=== PATIENT | female | born 1945 | race Caucasian/White ===

== ENCOUNTER → 2016-12-21 | Outpatient (CLI) | payer MEDICARE ==
[~2016-12-21] MED LIST: REGADENOSON 0.4 MG/5 ML SYRINGE IV ONE
--- NOTE | 2016-12-21 11:24 | EST ---
DATE OF SERVICE: 12/21/2016 AGE: 71Y SEX: F HT: 5'2" WT: 200 lbs. Lexiscan Cardiolite Stress Test *Heart Rate Blood Pressure *Rest: 66 Rest: 143/63 * *Max. Achieved: 88 Maximum BP: 143/63 85% PMHR: 127 100% PMHR: 149 *METS: - INDICATIONS: Chest pain. MEDICATIONS: Ventolin, Enalapril, Buspirone, venlafaxine, Advair, levothyroxine, ropinirole, spironolactone, Trazodone. Baseline EKG shows sinus rhythm, normal axis, normal intervals. Patient was given intravenous Lexiscan as per protocol. Did not have chest pain or diagnostic ST-segment depression. CONCLUSION: 1. Negative stress test by EKG criteria. 2. Cardiolite portion of the stress test will be reported separately.
--- NOTE | 2016-12-21 11:31 | NM ---
EXAMINATION TYPE: NM stress lexiscan cardiolite DATE OF EXAM: 12/21/2016 11:25 AM COMPARISON: NONE HISTORY: Chest pain TECHNIQUE: After the intravenous administration of 10.5 mCi Tc 99m Sestamibi - Cardiolite resting SP ECT images acquired 45 minutes post injection. The patient received 0.4mg Lexiscan, 26.349 mCi Tc 99m Sestamibi - Stress images obtained 30 minutes post injection FINDINGS: Review of stress and rest SPECT images demonstrates interval reversible small area of perfusion defec t apical lateral myocardium. Gated analysis shows normal wall motion with an estimated left ventricu lar ejection fraction of 67 %. IMPRESSION: Question a small area of reversibility stress-induced apical lateral myocardium. Correlate clinically . A Yellow message has been communicated to Pilar Dodge DO via the [facility] system on 12/21/2016 11:28 AM, Message ID [id number].
== END | disposition home or self-care (01) ==
LOC: RADNMMAIN 08:48
PROVIDERS: ATTEND Family Medicine
DX: R07.2 Precordial pain (principal); R06.00 Dyspnea, unspecified
CPT/HCPCS: 93017; 78452; A9500; J2785

== ENCOUNTER 2016-12-23 11:48 | Inpatient (IN) | payer MEDICARE ==
[2016-12-23] MEDS ORDERED: ASPIRIN 81 MG CHEW PO STA (12:17)
[2016-12-23] MEDS ORDERED: NITROGLYCERIN OINT 1 INCH/GM PACKET TOPICAL STA (12:17)
--- NOTE | 2016-12-23 12:20 | ED ---
General Adult HPI - General Chief complaint: Chest Pain Stated complaint: Chest pain Time Seen by Provider: 12/23/16 12:10 Source: patient, RN notes reviewed Mode of arrival: wheelchair Limitations: no limitations - History of Present Illness Initial comments: Patient is a pleasant 71-year-old female presenting to the emergency Department with complaints of chest discomfort. Onset of symptoms was a month and a half ago. Symptoms are exertional. Discomfort was present this morning. Discomfort is mild at this time rated 1/10. Discomfort feels like pressure. Occasional associated dyspnea and nausea. No diaphoresis. Patient did have a recent stress test that was reported as positive. Patient has had some mild leg swelling which is somewhat chronic. - Related Data Home Medications Medication Instructions Recorded Confirmed Insulin Aspart [NovoLOG] See Protocol SQ-PUMP CONTINUOUS 03/20/14 12/23/16 Pantoprazole Sodium [Protonix] 40 mg PO DAILY 03/20/14 12/23/16 Enalapril [Vasotec] 10 mg PO DAILY 06/23/14 12/23/16 Fluticasone/Salmeterol [Advair 1 puff INHALATION RT-BID 06/23/14 12/23/16 250-50 Diskus] Furosemide [Lasix] 20 mg PO DAILY 06/23/14 12/23/16 rOPINIRole HCL [Requip] 8 mg PO DAILY 06/23/14 12/23/16 Aspirin EC [Ecotrin Low Dose] 81 mg PO DAILY 12/23/16 12/23/16 Carboxymethylcellulose Sodium 1 drop BOTH EYES TID PRN 12/23/16 12/23/16 [Refresh Tears] Levothyroxine Sodium [Synthroid] 75 mcg PO DAILY 12/23/16 12/23/16 Spironolactone 50 mg PO DAILY 12/23/16 12/23/16 Venlafaxine HCl [Effexor XR] 75 mg PO TID 12/23/16 12/23/16 busPIRone HCl [Buspar] 10 mg PO BID PRN 12/23/16 12/23/16 traZODone HCL [Desyrel] 50 mg PO HS 12/23/16 12/23/16 Allergies Allergy/AdvReac Type Severity Reaction Status Date / Time banana [Banana] Allergy Rash/Hives, Verified 12/23/16 11:54 throat symptoms Fish Containing Products Allergy Swelling Verified 12/23/16 11:54 Iodinated Contrast Media - Allergy Anaphylaxis Verified 12/23/16 11:54 Oral and [Iodinated Contrast Media - IV Dye] iodine Allergy Anaphylaxis Verified 12/23/16 11:54 Latex, Natural Rubber Allergy Swelling Verified 12/23/16 11:54 Penicillins Allergy Rash/Hives Verified 12/23/16 11:54 prochlorperazine edisylate Allergy Rapid Verified 12/23/16 12:58 [From Compazine] Heart Rate prochlorperazine maleate Allergy Rapid Verified 12/23/16 11:54 [From Compazine] Heart Rate codeine AdvReac Abdominal Verified 12/23/16 12:58 Pain hydromorphone HCl AdvReac confused Verified 12/23/16 12:58 [From Dilaudid] meperidine HCl [From Demerol] AdvReac Hallucinati Verified 12/23/16 12:58 ons Review of Systems ROS Statement: Those systems with pertinent positive or pertinent negative responses have been documented in the HPI. ROS Other: All systems not noted in ROS Statement are negative. Constitutional: Denies: fever Eyes: Denies: eye pain ENT: Denies: ear pain Respiratory: Denies: cough Cardiovascular: Reports: chest pain Endocrine: Denies: fatigue Gastrointestinal: Denies: abdominal pain Genitourinary: Denies: dysuria Musculoskeletal: Denies: back pain Skin: Denies: rash Neurological: Denies: weakness Past Medical History Past Medical History: Asthma, Chest Pain / Angina, CVA/TIA, Diabetes Mellitus, Fibromyalgia, GERD/Reflux, Hypertension, Memory Impairment, Osteoarthritis (OA) , Pneumonia, Rheumatoid Arthritis (RA), Skin Disorder Additional Past Medical History / Comment(s): recent headaches, varicose veins, occ palipations, contact dermatitis,hiatal hernia, hx ulcer, anemia, loss of short term memory History of Any Multi-Drug Resistant Organisms: None Reported Past Surgical History: Bariatric Surgery, Cholecystectomy, Hysterectomy, Joint Replacement, Orthopedic Surgery Additional Past Surgical History / Comment(s): LAP BAND REMOVED ON 12/09/2013. isaiah knee replacement, isaiah ankle surgery Past Anesthesia/Blood Transfusion Reactions: Motion Sickness Past Psychological History: Anxiety, Depression Smoking Status: Former smoker Past Alcohol Use History: None Reported Past Drug Use History: None Reported - Past Family History Mother Family Medical History: Cancer Father Family Medical History: Cancer Sister(s) Family Medical History: Cancer General Exam Limitations: no limitations General appearance: alert, in no apparent distress Head exam: Present: atraumatic Eye exam: Present: normal appearance, PERRL ENT exam: Present: normal oropharynx Neck exam: Present: normal inspection Respiratory exam: Present: normal lung sounds bilaterally Cardiovascular Exam: Present: regular rate, normal rhythm Expanded Peripheral pulses: 2+: Radial (R), Radial (L), Posterior Tibialis (R), Posterior Tibialis (L) GI/Abdominal exam: Present: soft. Absent: tenderness Extremities exam: Present: normal inspection. Absent: pedal edema, calf tenderness Neurological exam: Present: alert Psychiatric exam: Present: normal affect, normal mood Skin exam: Absent: rash Course Vital Signs 12/23/16 12/23/16 12/23/16 11:50 12:13 12:37 Temperature 99.2 F Pulse Rate 72 66 Pulse Rate [ 80 Apical] Respiratory 16 16 18 Rate Blood Pressure 171/77 171/82 O2 Sat by Pulse 98 98 Oximetry 12/23/16 13:49 Temperature Pulse Rate 66 Pulse Rate [ Apical] Respiratory 18 Rate Blood Pressure 189/88 O2 Sat by Pulse 98 Oximetry EKG Findings - EKG Comments: EKG Findings:: Normal sinus rhythm at 70. PA 142. QRS 72. QT 418. QTC 451. Left axis. Voltage criteria for LVH. No acute ST elevation. Medical Decision Making - Medical Decision Making Patient reevaluated and resting comfortably in bed. Dr. Joyce has been paged for admission for Dr. Monique. Patient updated on results and plan. Admission orders written. Consult placed for cardiology. - Lab Data Result diagrams: 12/23/16 12:09 12/23/16 12:09 Lab Results 12/23/16 12/23/16 12/23/16 Range/Units 12:09 12:09 12:09 WBC 8.7 (3.8-10.6) k/uL RBC 4.59 (3.80-5.40) m/uL Hgb 13.5 (11.4-16.0) gm/dL Hct 41.0 (34.0-46.0) % MCV 89.3 (80.0-100.0) fL MCH 29.5 (25.0-35.0) pg MCHC 33.0 (31.0-37.0) g/dL RDW 14.2 (11.5-15.5) % Plt Count 233 (150-450) k/uL Neutrophils % 66 % Lymphocytes % 25 % Monocytes % 3 % Eosinophils % 3 % Basophils % 1 % Neutrophils # 5.8 (1.3-7.7) k/uL Lymphocytes # 2.2 (1.0-4.8) k/uL Monocytes # 0.2 (0-1.0) k/uL Eosinophils # 0.2 (0-0.7) k/uL Basophils # 0.0 (0-0.2) k/uL PT (9.0-12.0) sec INR (<1.1) APTT (22.0-30.0) sec Sodium 139 (137-145) mmol/L Potassium 4.3 (3.5-5.1) mmol/L Chloride 103 (98-107) mmol/L Carbon Dioxide 23 (22-30) mmol/L Anion Gap 13 mmol/L BUN 19 H (7-17) mg/dL Creatinine 0.68 (0.52-1.04) mg/dL Est GFR (MDRD) Af Amer >60 (>60 ml/min/1.73 sqM) Est GFR (MDRD) Non-Af >60 (>60 ml/min/1.73 sqM) Glucose 188 H (74-99) mg/dL Calcium 9.3 (8.4-10.2) mg/dL Magnesium 1.8 (1.6-2.3) mg/dL Total Bilirubin 0.6 (0.2-1.3) mg/dL AST 17 (14-36) U/L ALT 26 (9-52) U/L Alkaline Phosphatase 113 (38-126) U/L Total Creatine Kinase 65 (30-135) U/L CK-MB (CK-2) 1.7 (0.0-2.4) ng/mL CK-MB (CK-2) Rel Index 2.6 Troponin I <0.012 (0.000-0.034) ng/mL NT-Pro-B Natriuret Pep pg/mL Total Protein 7.3 (6.3-8.2) g/dL Albumin 4.1 (3.5-5.0) g/dL 12/23/16 12/23/16 Range/Units 12:09 12:09 WBC (3.8-10.6) k/uL RBC (3.80-5.40) m/uL Hgb (11.4-16.0) gm/dL Hct (34.0-46.0) % MCV (80.0-100.0) fL MCH (25.0-35.0) pg MCHC (31.0-37.0) g/dL RDW (11.5-15.5) % Plt Count (150-450) k/uL Neutrophils % % Lymphocytes % % Monocytes % % Eosinophils % % Basophils % % Neutrophils # (1.3-7.7) k/uL Lymphocytes # (1.0-4.8) k/uL Monocytes # (0-1.0) k/uL Eosinophils # (0-0.7) k/uL Basophils # (0-0.2) k/uL PT 9.8 (9.0-12.0) sec INR 1.0 (<1.1) APTT 22.5 (22.0-30.0) sec Sodium (137-145) mmol/L Potassium (3.5-5.1) mmol/L Chloride (98-107) mmol/L Carbon Dioxide (22-30) mmol/L Anion Gap mmol/L BUN (7-17) mg/dL Creatinine (0.52-1.04) mg/dL Est GFR (MDRD) Af Amer (>60 ml/min/1.73 sqM) Est GFR (MDRD) Non-Af (>60 ml/min/1.73 sqM) Glucose (74-99) mg/dL Calcium (8.4-10.2) mg/dL Magnesium (1.6-2.3) mg/dL Total Bilirubin (0.2-1.3) mg/dL AST (14-36) U/L ALT (9-52) U/L Alkaline Phosphatase (38-126) U/L Total Creatine Kinase (30-135) U/L CK-MB (CK-2) (0.0-2.4) ng/mL CK-MB (CK-2) Rel Index Troponin I (0.000-0.034) ng/mL NT-Pro-B Natriuret Pep 133 pg/mL Total Protein (6.3-8.2) g/dL Albumin (3.5-5.0) g/dL - Radiology Data Radiology results: image reviewed (Chest x-ray shows no acute process) Critical Care Time Critical Care Time: Yes Total Critical Care Time: 31 Disposition Clinical Impression: Unstable angina pectoris Disposition: ADMITTED IP TO THIS HOSP
--- NOTE | 2016-12-23 12:34 | XR ---
EXAMINATION TYPE: XR chest 2V DATE OF EXAM: 12/23/2016 12:28 PM COMPARISON: Prior chest x-ray December 10, 2013 HISTORY: Chest pain. TECHNIQUE: Frontal and lateral views of the chest are obtained. FINDINGS: There is no focal air space opacity, pleural effusion, or pneumothorax seen. The cardiac silhouette size is within normal limits. The osseous structures are somewhat demineralized. Cholecy stectomy clips are noted. IMPRESSION: No acute cardiopulmonary process on current study.
[2016-12-23 12:35] LABS: Basophils % (A) 1 %; CH 29.1; CHCM 32.8; Eosinophils # (A) 0.2 k/uL (0-0.7); Eosinophils % (A) 3 %; HDW 2.52; HGB 13.5 gm/dL (11.4-16.0); Luc # (Auto) 0.24; Luc % (Auto) 3; Lymphocytes # (A) 2.2 k/uL (1.0-4.8); Lymphocytes % (A) 25 %; MCH 29.5 pg (25.0-35.0); MCV 89.3 fL (80.0-100.0); Mean Platelet Volume 7.7; Monocytes # (A) 0.2 k/uL (0-1.0); Monocytes % (A) 3 %; Neutrophils # (A) 5.8 k/uL (1.3-7.7); Neutrophils % (A) 66 %; RBC 4.59 m/uL (3.80-5.40); RDW 14.2 % (11.5-15.5); WBC 8.7 k/uL (3.8-10.6); WBC (Perox) 9.19
[2016-12-23 12:43] LABS: Partial Thromboplastin Time 22.5 sec (22.0-30.0); Prothrombin Time 9.8 sec (9.0-12.0)
[2016-12-23 12:50] LABS: ALT 26 U/L (9-52); AST 17 U/L (14-36); Alkaline Phosphatase 113 U/L (38-126); Anion Gap 13 mmol/L; Blood Urea Nitrogen 19 mg/dL (7-17); Calcium 9.3 mg/dL (8.4-10.2); Carbon Dioxide 23 mmol/L (22-30); Chloride 103 mmol/L (98-107); Glucose 188 mg/dL (74-99); Magnesium 1.8 mg/dL (1.6-2.3); Non-African American GFR(MDRD) >60 (>60 ml/min/1.73 sqM); Potassium 4.3 mmol/L (3.5-5.1); Sodium 139 mmol/L (137-145); Total Bilirubin 0.6 mg/dL (0.2-1.3); Total Protein 7.3 g/dL (6.3-8.2)
[2016-12-23 13:26] LABS: Creatine Kinase 65 U/L (30-135)
[2016-12-23 13:39] LABS: Creatine Kinase MB 1.7 ng/mL (0.0-2.4); Troponin I <0.012 ng/mL (0.000-0.034)
[2016-12-23] MEDS ORDERED: NITROGLYCERIN SL TABS 0.4 MG TAB SUBLINGUAL PRN (13:48)
[2016-12-23] MEDS ORDERED: HEPARIN SODIUM,PORCINE 5,000 UNIT/ML 1 ML VIAL IV PRN (13:48)
[2016-12-23] MEDS ORDERED: HEPARIN SODIUM,PORCINE 5,000 UNIT/ML 1 ML VIAL IV ONE (13:48)
[2016-12-23] MEDS ORDERED: busPIRone HCl 10 MG TAB PO PRN (13:52)
[2016-12-23] MEDS ORDERED: ARTIFICIAL TEARS-HYPROMELLOSE DROPS 15 ML BTL BOTH EYES PRN (13:52)
[2016-12-23] MEDS: LORazepam 1 MG TAB PO PRN ×2 (13:59→22:00)
[2016-12-23] MEDS: HEPARIN SODIUM,PORCINE/D5W PMX 25,000 UNIT in DEXTROSE/WATER 1 500ML.BAG IV SCH (14:01)
[2016-12-23] MEDS ORDERED: rOPINIRole HCL 4 MG TABLET PO STA (15:40)
[2016-12-23] MEDS ORDERED: LISINOPRIL 20 MG TAB PO STA (15:42)
[2016-12-23] MEDS ORDERED: FUROSEMIDE 20 MG TAB PO STA (15:42)
[2016-12-23] MEDS ORDERED: PANTOPRAZOLE 40 MG TABLET PO STA (15:43)
[2016-12-23] MEDS ORDERED: busPIRone HCl 10 MG TAB PO STA (15:43)
[2016-12-23] MEDS ORDERED: SPIRONOLACTONE 25 MG TAB PO STA (15:43)
[2016-12-23] MEDS ORDERED: LEVOTHYROXINE 75 MCG TAB PO STA (15:44)
[2016-12-23] MEDS: VENLAFAXINE HCL ER 75 MG CAP PO SCH ×2 (16:36→21:53)
[2016-12-23 17:02] LABS: Glucose,Whole Blood 235 mg/dL (75-99)
[2016-12-23] MEDS: INSULIN LISPRO (For Pump) 100 UNIT/ML VIAL SQ-PUMP SCH ×2 (17:22→21:55)
[2016-12-23] MEDS: NITROGLYCERIN OINT 1 INCH/GM PACKET TOPICAL SCH ×2 (17:35→22:00)
[2016-12-23 20:06] LABS: Creatine Kinase 61 U/L (30-135)
[2016-12-23 20:14] LABS: Glucose,Whole Blood 197 mg/dL (75-99)
[2016-12-23 20:20] LABS: Creatine Kinase MB 1.5 ng/mL (0.0-2.4); Troponin I <0.012 ng/mL (0.000-0.034)
[2016-12-23] MEDS: traZODone HCL 50 MG TAB PO SCH (21:53)
[2016-12-24 00:34] LABS: Creatine Kinase 61 U/L (30-135)
[2016-12-24 00:46] LABS: Creatine Kinase MB 1.2 ng/mL (0.0-2.4); Troponin I <0.012 ng/mL (0.000-0.034)
[2016-12-24 05:12] LABS: Cholesterol 197 mg/dL (<200); HDL Cholesterol 55 mg/dL (40-60); Triglycerides 104 mg/dL (<150)
[2016-12-24 05:30] LABS: Mean Platelet Volume 7.7
[2016-12-24] MEDS: NITROGLYCERIN OINT 1 INCH/GM PACKET TOPICAL SCH ×3 (05:58→18:56)
[2016-12-24] MEDS: LEVOTHYROXINE 75 MCG TAB PO SCH (05:58)
[2016-12-24 07:08] LABS: Glucose,Whole Blood 187 mg/dL (75-99)
[2016-12-24] MEDS ORDERED: ATORVASTATIN 80 MG TAB PO STA (08:17)
[2016-12-24] MEDS ORDERED: NITROGLYCERIN SL TABS 0.4 MG TAB SUBLINGUAL PRN (08:17)
[2016-12-24] MEDS ORDERED: ALPRAZolam 0.25 MG TAB PO PRN (08:17)
[2016-12-24] MEDS ORDERED: SODIUM CHLORIDE 0.9% 1,000 ML in EMPTY BAG 1 BAG IV ONE (08:17)
[2016-12-24] MEDS ORDERED: ASPIRIN 325 MG TAB PO STA (08:17)
[2016-12-24] MEDS ORDERED: ALPRAZolam 0.5 MG TAB PO PRN (08:17)
--- NOTE | 2016-12-24 08:18 | P.CRDCN ---
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 Obviously the patient was experiencing intermittent episodes of chest discomfort concerning for angina. Her discomfort is a pressure in the mid of the chest mostly exertional and better with resting. No associated symptoms of shortness of breath or dizziness or lightheadedness or syncope. The patient underwent myocardial perfusion imaging stress test few days ago and that showed lateral ischemia. The primary care physician and received a copy of the stress test and called the patient to go to the emergency room. The patient underwent 3 sets of cardiac enzymes came in to be unremarkable. the EKG showed sinus rhythm with nonspecific changes inferiorly. I recommended proceeding with heart catheterization in the next 24 hours. Past Medical History Past Medical History: Asthma, Chest Pain / Angina, CVA/TIA, Diabetes Mellitus, Fibromyalgia, GERD/Reflux, Hypertension, Memory Impairment, Osteoarthritis (OA) , Pneumonia, Rheumatoid Arthritis (RA), Skin Disorder Additional Past Medical History / Comment(s): recent headaches, varicose veins, occ palpitations, contact dermatitis,hiatal hernia, hx ulcer, anemia, loss of short term memory History of Any Multi-Drug Resistant Organisms: None Reported Past Surgical History: Bariatric Surgery, Cholecystectomy, Hysterectomy, Joint Replacement, Orthopedic Surgery Additional Past Surgical History / Comment(s): Gastric sleeve removed, and LAP BAND REMOVED ON 12/09/2013. isaiah knee replacement, isaiah ankle surgery Past Anesthesia/Blood Transfusion Reactions: Motion Sickness Past Psychological History: Anxiety, Depression Smoking Status: Former smoker Past Alcohol Use History: None Reported Past Drug Use History: None Reported - Past Family History Mother Family Medical History: Cancer Father Family Medical History: Cancer Sister(s) Family Medical History: Cancer Medications and Allergies Home Medications Medication Instructions Recorded Confirmed Type Insulin Aspart [NovoLOG] See Protocol SQ-PUMP CONTINUOUS 03/20/14 12/23/16 History Pantoprazole Sodium [Protonix] 40 mg PO DAILY 03/20/14 12/23/16 History Enalapril [Vasotec] 10 mg PO DAILY 06/23/14 12/23/16 History Fluticasone/Salmeterol [Advair 1 puff INHALATION RT-BID 06/23/14 12/23/16 History 250-50 Diskus] Furosemide [Lasix] 20 mg PO DAILY 06/23/14 12/23/16 History rOPINIRole HCL [Requip] 8 mg PO DAILY 06/23/14 12/23/16 History Aspirin EC [Ecotrin Low Dose] 81 mg PO DAILY 12/23/16 12/23/16 History Carboxymethylcellulose Sodium 1 drop BOTH EYES TID PRN 12/23/16 12/23/16 History [Refresh Tears] Levothyroxine Sodium [Synthroid] 75 mcg PO DAILY 12/23/16 12/23/16 History Spironolactone 50 mg PO DAILY 12/23/16 12/23/16 History Venlafaxine HCl [Effexor XR] 75 mg PO TID 12/23/16 12/23/16 History busPIRone HCl [Buspar] 10 mg PO BID PRN 12/23/16 12/23/16 History traZODone HCL [Desyrel] 50 mg PO HS 12/23/16 12/23/16 History Allergies Allergy/AdvReac Type Severity Reaction Status Date / Time banana [Banana] Allergy Rash/Hives, Verified 12/23/16 11:54 throat symptoms Fish Containing Products Allergy Swelling Verified 12/23/16 11:54 Iodinated Contrast Media - Allergy Anaphylaxis Verified 12/23/16 11:54 Oral and [Iodinated Contrast Media - IV Dye] iodine Allergy Anaphylaxis Verified 12/23/16 11:54 Latex, Natural Rubber Allergy Swelling Verified 12/23/16 11:54 Penicillins Allergy Rash/Hives Verified 12/23/16 11:54 prochlorperazine edisylate Allergy Rapid Verified 12/23/16 12:58 [From Compazine] Heart Rate prochlorperazine maleate Allergy Rapid Verified 12/23/16 11:54 [From Compazine] Heart Rate codeine AdvReac Abdominal Verified 12/23/16 12:58 Pain hydromorphone HCl AdvReac confused Verified 12/23/16 12:58 [From Dilaudid] meperidine HCl [From Demerol] AdvReac Hallucinati Verified 12/23/16 12:58 ons Physical Exam Vitals: Vital Signs Temp Pulse Resp BP Pulse Ox 12/24/16 08:00 97.5 F L 69 16 121/66 94 L 12/24/16 04:00 97.9 F 72 18 116/59 93 L 12/23/16 23:54 18 12/23/16 22:53 67 18 117/69 95 12/23/16 20:00 18 12/23/16 19:39 98.1 F 64 18 131/65 97 12/23/16 16:51 97 12/23/16 15:02 98.3 F 60 16 173/74 95 12/23/16 14:05 97.8 F Intake and Output 12/23/16 12/24/16 12/24/16 22:59 06:59 14:59 Intake Total 158.096 601.875 Balance 158.096 601.875 Intake: IV 200 0.9@20 100 Heparin Sodium,Porcine/ 100 D5w Pmx 25,000 unit In Dextrose/Water 1 500ml. bag @ 10.9 UNITS/KG/HR 19 .97 mls/hr IV .Q24H SHARA Rx#:[id number] Intake, IV Titration 158.096 201.875 Amount Heparin Sodium,Porcine/ 158.096 201.875 D5w Pmx 25,000 unit In Dextrose/Water 1 500ml. bag @ 10.9 UNITS/KG/HR 19 .97 mls/hr IV .Q24H SHARA Rx#:[id number] Oral 200 Other: Voiding Method Toilet Toilet # Voids 1 2 Weight 91.8 kg - Constitutional General appearance: no acute distress - Respiratory Respiratory: bilateral: CTA - Cardiovascular Rhythm: regular Heart sounds: normal: S1, S2 Results 12/24/16 03:49 12/23/16 12:09 Cardiac Enzymes 12/23/16 12/23/16 Range/Units 19:04 23:51 CK-MB (CK-2) 1.5 1.2 (0.0-2.4) ng/mL Troponin I <0.012 <0.012 (0.000-0.034) ng/mL Coagulation 12/23/16 12/24/16 Range/Units 20:39 03:49 APTT 37.6 H 76.5 H (22.0-30.0) sec Lipids 12/24/16 Range/Units 03:49 Triglycerides 104 (<150) mg/dL Cholesterol 197 (<200) mg/dL HDL Cholesterol 55 (40-60) mg/dL CBC 12/24/16 Range/Units 03:49 Plt Count 221 (150-450) k/uL Current Medications Generic Name Dose Route Start Last Admin Trade Name Freq PRN Reason Stop Dose Admin Artificial Tears 1 drops 12/23/16 13:52 Artificial Tear Drops BOTH EYES TID PRN Dry Eye(s) Aspirin 325 mg 12/24/16 09:00 Aspirin PO DAILY [facility]1983 Buspirone HCl 10 mg 12/23/16 13:52 Buspar PO BID PRN Anxiety Furosemide 20 mg 12/24/16 09:00 Lasix PO DAILY SHARA Heparin Sodium (Porcine) 0 unit 12/23/16 13:48 12/23/16 21:53 Heparin IV 4,000 unit Q6HR PRN Administration Low PTT Protocol Heparin Sodium/Dextrose 25,000 500 mls @ 19.97 mls/hr 12/23/16 14:00 05:51 unit/ IV Solution IV 11.92 units/kg/hr .Q24H SHARA 21.84 mls/hr Protocol Titration 10.9 UNITS/KG/HR Insulin Human Lispro 0 unit 12/23/16 17:30 12/23/16 21:55 Humalog (For Pump) SQ-PUMP 2 unit ACHS SHARA Administration Protocol Levothyroxine Sodium 75 mcg 12/24/16 06:30 12/24/16 05:58 Synthroid PO 75 mcg 0630 SHARA Administration Lisinopril 20 mg 12/24/16 09:00 Zestril PO DAILY SHARA Lorazepam 1 mg 12/23/16 13:50 12/23/16 22:00 Ativan PO 1 mg TID PRN Administration Anxiety Nitroglycerin 1 inch 12/23/16 18:00 12/24/16 05:58 Nitro-Bid Oint TOPICAL 1 inch Q6HR SHARA Administration Nitroglycerin 0.4 mg 12/23/16 13:48 Nitrostat SUBLINGUAL Q5M PRN Chest Pain Pantoprazole Sodium 40 mg 12/24/16 09:00 Protonix PO DAILY [facility]1983 Ropinirole HCl 8 mg 12/24/16 09:00 Requip PO DAILY [facility]1983 Spironolactone 50 mg 12/24/16 09:00 Aldactone PO DAILY SHARA Trazodone HCl 50 mg 12/23/16 21:00 12/23/16 21:53 Desyrel PO 50 mg HS SHARA Administration Venlafaxine HCl 75 mg 12/23/16 16:00 12/23/16 21:53 Effexor Xr PO 75 mg TID SHARA Administration Intake and Output 12/23/16 12/24/16 12/24/16 22:59 06:59 14:59 Intake Total 158.096 601.875 Balance 158.096 601.875 Intake: IV 200 0.9@20 100 Heparin Sodium,Porcine/ 100 D5w Pmx 25,000 unit In Dextrose/Water 1 500ml. bag @ 10.9 UNITS/KG/HR 19 .97 mls/hr IV .Q24H SHARA Rx#:[id number] Intake, IV Titration 158.096 201.875 Amount Heparin Sodium,Porcine/ 158.096 201.875 D5w Pmx 25,000 unit In Dextrose/Water 1 500ml. bag @ 10.9 UNITS/KG/HR 19 .97 mls/hr IV .Q24H SHARA Rx#:[id number] Oral 200 Other: Voiding Method Toilet Toilet # Voids 1 2 Weight 91.8 kg 12/24/16 03:49 Assessment and Plan Plan: assessment #1 intermittent episodes of chest discomfort #2 abnormal stress test as described above #3 multiple risk factors for CAD Plan #1 proceeding with heart catheterization #2 follow-up with the patient
[2016-12-24] MEDS: LISINOPRIL 20 MG TAB PO SCH (09:22)
[2016-12-24] MEDS: VENLAFAXINE HCL ER 75 MG CAP PO SCH ×3 (09:22→21:26)
[2016-12-24] MEDS: ASPIRIN 325 MG TAB PO SCH (09:22)
[2016-12-24] MEDS: INSULIN LISPRO (For Pump) 100 UNIT/ML VIAL SQ-PUMP SCH ×3 (09:25→18:56)
[2016-12-24] MEDS: rOPINIRole HCL 4 MG TABLET PO SCH (10:56)
[2016-12-24] MEDS: SPIRONOLACTONE 25 MG TAB PO SCH (10:56)
[2016-12-24] MEDS: PANTOPRAZOLE 40 MG TABLET PO SCH (10:57)
[2016-12-24] MEDS: LORazepam 1 MG TAB PO PRN (10:59)
[2016-12-24 12:01] LABS: Glucose,Whole Blood 219 mg/dL (75-99)
--- NOTE | 2016-12-24 13:19 | P.HPIM ---
History of Present Illness H&P Date: 12/24/16 Chief Complaint: Chest pain This is a 71-year-old female with past medical history noted below who presented to the emergency room with intermittent chest pain. Patient is been having chest pain for the past couple of weeks. She was evaluated by her primary care physician. She underwent a cardiac stress test/MPI as an outpatient a few days ago that was positive. Patient received a call from her primary care physician and as she was still having intermittent chest pressure she was advised to go to the emergency room for further evaluation. In the emergency room twelve-lead EKG showed no acute ischemic changes. Nonspecific ST segment changes on the inferior leads noted. Serial troponin negative 2 sets. Patient was placed in observation and was evaluated by cardiology. Plan for left heart catheterization in the morning. Review of Systems Review of system: 14 points review of systems were obtained and were negative except to what were mentioned in the HPI. Past Medical History Past Medical History: Asthma, Chest Pain / Angina, CVA/TIA, Diabetes Mellitus, Fibromyalgia, GERD/Reflux, Hypertension, Memory Impairment, Osteoarthritis (OA) , Pneumonia, Rheumatoid Arthritis (RA), Skin Disorder Additional Past Medical History / Comment(s): recent headaches, varicose veins, occ palpitations, contact dermatitis,hiatal hernia, hx ulcer, anemia, loss of short term memory History of Any Multi-Drug Resistant Organisms: None Reported Past Surgical History: Bariatric Surgery, Cholecystectomy, Hysterectomy, Joint Replacement, Orthopedic Surgery Additional Past Surgical History / Comment(s): Gastric sleeve removed, and LAP BAND REMOVED ON 12/09/2013. isaiah knee replacement, isaiah ankle surgery Past Anesthesia/Blood Transfusion Reactions: Motion Sickness Past Psychological History: Anxiety, Depression Smoking Status: Former smoker Past Alcohol Use History: None Reported Past Drug Use History: None Reported - Past Family History Mother Family Medical History: Cancer Father Family Medical History: Cancer Sister(s) Family Medical History: Cancer Medications and Allergies Home Medications Medication Instructions Recorded Confirmed Type Insulin Aspart [NovoLOG] See Protocol SQ-PUMP CONTINUOUS 03/20/14 12/23/16 History Pantoprazole Sodium [Protonix] 40 mg PO DAILY 03/20/14 12/23/16 History Enalapril [Vasotec] 10 mg PO DAILY 06/23/14 12/23/16 History Fluticasone/Salmeterol [Advair 1 puff INHALATION RT-BID 06/23/14 12/23/16 History 250-50 Diskus] Furosemide [Lasix] 20 mg PO DAILY 06/23/14 12/23/16 History rOPINIRole HCL [Requip] 8 mg PO DAILY 06/23/14 12/23/16 History Aspirin EC [Ecotrin Low Dose] 81 mg PO DAILY 12/23/16 12/23/16 History Carboxymethylcellulose Sodium 1 drop BOTH EYES TID PRN 12/23/16 12/23/16 History [Refresh Tears] Levothyroxine Sodium [Synthroid] 75 mcg PO DAILY 12/23/16 12/23/16 History Spironolactone 50 mg PO DAILY 12/23/16 12/23/16 History Venlafaxine HCl [Effexor XR] 75 mg PO TID 12/23/16 12/23/16 History busPIRone HCl [Buspar] 10 mg PO BID PRN 12/23/16 12/23/16 History traZODone HCL [Desyrel] 50 mg PO HS 12/23/16 12/23/16 History Allergies Allergy/AdvReac Type Severity Reaction Status Date / Time banana [Banana] Allergy Rash/Hives, Verified 12/23/16 11:54 throat symptoms Fish Containing Products Allergy Swelling Verified 12/23/16 11:54 Iodinated Contrast Media - Allergy Anaphylaxis Verified 12/23/16 11:54 Oral and [Iodinated Contrast Media - IV Dye] iodine Allergy Anaphylaxis Verified 12/23/16 11:54 Latex, Natural Rubber Allergy Swelling Verified 12/23/16 11:54 Penicillins Allergy Rash/Hives Verified 12/23/16 11:54 prochlorperazine edisylate Allergy Rapid Verified 12/23/16 12:58 [From Compazine] Heart Rate prochlorperazine maleate Allergy Rapid Verified 12/23/16 11:54 [From Compazine] Heart Rate codeine AdvReac Abdominal Verified 12/23/16 12:58 Pain hydromorphone HCl AdvReac confused Verified 12/23/16 12:58 [From Dilaudid] meperidine HCl [From Demerol] AdvReac Hallucinati Verified 12/23/16 12:58 ons Physical Exam Vitals: Vital Signs Temp Pulse Pulse Resp BP Pulse Ox 12/24/16 11:44 98.3 F 72 16 105/58 95 12/24/16 08:00 97.5 F L 80 69 16 121/66 94 L 12/24/16 04:00 97.9 F 72 18 116/59 93 L 12/23/16 23:54 18 12/23/16 22:53 67 18 117/69 95 12/23/16 20:00 18 12/23/16 19:39 98.1 F 64 18 131/65 97 12/23/16 16:51 97 12/23/16 15:02 98.3 F 60 16 173/74 95 12/23/16 14:05 97.8 F Intake and Output 12/23/16 12/24/16 12/24/16 22:59 06:59 14:59 Intake Total 158.096 601.875 Balance 158.096 601.875 Intake: IV 200 0.9@20 100 Heparin Sodium,Porcine/ 100 D5w Pmx 25,000 unit In Dextrose/Water 1 500ml. bag @ 10.9 UNITS/KG/HR 19 .97 mls/hr IV .Q24H SHARA Rx#:[id number] Intake, IV Titration 158.096 201.875 Amount Heparin Sodium,Porcine/ 158.096 201.875 D5w Pmx 25,000 unit In Dextrose/Water 1 500ml. bag @ 10.9 UNITS/KG/HR 19 .97 mls/hr IV .Q24H SHARA Rx#:[id number] Oral 200 Other: Voiding Method Toilet Toilet Toilet # Voids 1 2 2 Weight 91.8 kg General: The patient is awake and alert, in no distress, and does not appear acutely ill. Eye: extra-ocular movements are intact; there is normal conjunctiva bilaterally. . Neck: The neck is supple, there is no tenderness or JVD. Cardiovascular: Normal S1-S2, no S3-S4, no murmurs. Respiratory: Lungs clear to auscultation bilaterally with no wheezes rhonchi or rales. Gastrointestinal: Abdomen is soft, nontender, nondistended, with no organomegaly. . Musculoskeletal: Normal ROM, no tenderness, There is no pedal edema. Neurological: There are no obvious motor or sensory deficits. Speech is normal. Skin: Skin is warm and dry and no rashes or lesions are noted. Results CBC & Chem 7: 12/24/16 03:49 12/23/16 12:09 Labs: Abnormal Lab Results - Last 24 Hours (Table) 12/23/16 12/23/16 12/23/16 Range/Units 16:56 20:12 20:39 APTT 37.6 H (22.0-30.0) sec POC Glucose (mg/dL) 235 H 197 H (75-99) mg/dL LDL Cholesterol, Calc (0-99) mg/dL 12/24/16 12/24/16 12/24/16 Range/Units 03:49 03:49 07:05 APTT 76.5 H (22.0-30.0) sec POC Glucose (mg/dL) 187 H (75-99) mg/dL LDL Cholesterol, Calc 121 H (0-99) mg/dL 12/24/16 12/24/16 Range/Units 11:57 11:59 APTT 50.2 H (22.0-30.0) sec POC Glucose (mg/dL) 219 H (75-99) mg/dL LDL Cholesterol, Calc (0-99) mg/dL Thrombosis Risk Factor Assmnt - Choose All That Apply Any of the Below Risk Factors Present?: Yes Each Factor Represents 1 point: Obesity (BMI >25) Other Risk Factors: Yes Each Risk Factor Represents 2 Points: Age 61-74 years Thrombosis Risk Factor Assessment Total Risk Factor Score: 3 Thrombosis Risk Factor Assessment Level: Moderate Risk Assessment and Plan Plan: 1. Chest pain: Twelve-lead EKG showed nonspecific ST segment changes in the inferior leads. Serial troponin negative 2 sets. Patient had a positive stress test/ few days ago as an outpatient. She is scheduled for left heart catheterization tomorrow. 2. Essential hypertension: Blood pressure well-controlled 3. Mixed hyperlipidemia total cholesterol 197 and 121. Currently on Lipitor 80 mg daily as started by cardiology 4. Type 2 diabetes mellitus on insulin pump at home. I would check A1c. Continue sliding scale insulin for now. Lantus 10 units daily While in the hospital
[2016-12-24] MEDS: FUROSEMIDE 20 MG TAB PO SCH (15:11)
[2016-12-24] MEDS: HEPARIN SODIUM,PORCINE/D5W PMX 25,000 UNIT in DEXTROSE/WATER 1 500ML.BAG IV SCH (15:18)
[2016-12-24 17:14] LABS: Glucose,Whole Blood 184 mg/dL (75-99)
[2016-12-24 20:57] LABS: Glucose,Whole Blood 256 mg/dL (75-99)
[2016-12-24] MEDS: traZODone HCL 50 MG TAB PO SCH (21:26)
[2016-12-24] MEDS: INSULIN GLARGINE 100 UNIT/ML 10 ML VIAL SQ SCH (22:00)
[2016-12-25] MEDS: NITROGLYCERIN OINT 1 INCH/GM PACKET TOPICAL SCH ×3 (01:53→13:49)
[2016-12-25] MEDS: INSULIN LISPRO (For Pump) 100 UNIT/ML VIAL SQ-PUMP SCH ×2 (07:03→07:31)
[2016-12-25 07:15] LABS: Glucose,Whole Blood 122 mg/dL (75-99)
[2016-12-25] MEDS: ASPIRIN 325 MG TAB PO SCH (07:31)
[2016-12-25] MEDS: LEVOTHYROXINE 75 MCG TAB PO SCH (07:31)
[2016-12-25] MEDS: rOPINIRole HCL 4 MG TABLET PO SCH (07:33)
[2016-12-25] MEDS: PANTOPRAZOLE 40 MG TABLET PO SCH (07:33)
[2016-12-25] MEDS: LISINOPRIL 20 MG TAB PO SCH (07:33)
[2016-12-25] MEDS: SPIRONOLACTONE 25 MG TAB PO SCH (07:34)
[2016-12-25] MEDS: VENLAFAXINE HCL ER 75 MG CAP PO SCH (07:35)
[2016-12-25] MEDS: LORazepam 1 MG TAB PO PRN (07:39)
[2016-12-25 08:02] LABS: Basophils % (A) 1 %; CH 28.8; CHCM 32.2; Eosinophils # (A) 0.3 k/uL (0-0.7); Eosinophils % (A) 4 %; HCT 38.7 % (34.0-46.0); HDW 2.46; HGB 12.3 gm/dL (11.4-16.0); Luc # (Auto) 0.24; Luc % (Auto) 3; Lymphocytes # (A) 2.5 k/uL (1.0-4.8); Lymphocytes % (A) 29 %; MCH 28.6 pg (25.0-35.0); MCHC 31.8 g/dL (31.0-37.0); Mean Platelet Volume 7.5; Monocytes # (A) 0.2 k/uL (0-1.0); Monocytes % (A) 3 %; Neutrophils # (A) 5.3 k/uL (1.3-7.7); Neutrophils % (A) 61 %; RDW 14.2 % (11.5-15.5); WBC 8.7 k/uL (3.8-10.6); WBC (Perox) 9.53
[2016-12-25 08:12] LABS: Anion Gap 12 mmol/L; Blood Urea Nitrogen 23 mg/dL (7-17); Calcium 8.8 mg/dL (8.4-10.2); Carbon Dioxide 25 mmol/L (22-30); Chloride 104 mmol/L (98-107); Glucose 115 mg/dL (74-99); Non-African American GFR(MDRD) >60 (>60 ml/min/1.73 sqM); Potassium 4.3 mmol/L (3.5-5.1); Sodium 141 mmol/L (137-145)
[2016-12-25] MEDS ORDERED: diphenhydrAMINE 50 MG/ML 1 ML VIAL IVP ONE (08:44)
[2016-12-25] MEDS ORDERED: methylPREDNISolone SOD SUCCI 125 MG/2 ML VIAL IV ONE (08:44)
[2016-12-25] MEDS ORDERED: FAMOTIDINE 20 MG/2 ML VIAL IV ONE (08:44)
[2016-12-25 09:01] LABS: Hemoglobin A1C 7.5 % (4.2-6.1)
--- NOTE | 2016-12-25 09:32 | PN ---
The patient was admitted to hospital with unstable angina and had been scheduled for a cardiac cath. SHE IS ALLERGIC TO IV DYE. I am going to prep her this morning. Patient's last allergic reaction was back in 1978 and since that time she has been exposed to IV dye a few times and has tolerated it well.
[2016-12-25] MEDS ORDERED: IV FLUID CONTINUATION 1,000 ML IV ONE (09:40)
[2016-12-25] MEDS ORDERED: LIDOCAINE 2% INJ 20 MG/ML (20 ML MDV) ONE (09:58)
[2016-12-25] MEDS ORDERED: MIDAZOLAM 2 MG/2 ML VIAL ONE (10:32)
[2016-12-25] MEDS ORDERED: MIDAZOLAM 2 MG/2 ML VIAL IV ONE (10:36)
[2016-12-25] MEDS ORDERED: LIDOCAINE 2% INJ 20 MG/ML SQ ONE ×2 (10:38)
[2016-12-25] MEDS ORDERED: RX INFO: IV CONTRAST WAS GIVEN 1 EACH MISC MISCELLANE PRN (10:52)
[2016-12-25] MEDS ORDERED: IOHEXOL 350 MG/ML 100 ML BOTTLE INJ ONE (10:53)
[2016-12-25] MEDS ORDERED: SODIUM CHLORIDE 0.9% 1,000 ML IV SCH (11:00)
--- NOTE | 2016-12-25 11:24 | CC ---
DATE OF SERVICE: INDICATION: Unstable angina. PROCEDURE NOTE: After obtaining informed consent, left heart catheterization and coronary angiogram are performed via the right femoral artery using standard Socrates catheters. Patient tolerated the procedure well without any obvious immediate complications. The patient underwent a femoral angiogram and Angio-Seal was deployed for hemostasis. FINDINGS: HEMODYNAMICS: Left ventricular end-diastolic pressure is 14 to 16 mm. There is no significant gradient across the aortic valve. LEFT VENTRICULOGRAM: Left ventriculogram was not performed. ANGIOGRAPHIC DATA: LEFT MAIN CORONARY ARTERY: Left main coronary artery is a normal sized vessel and is free of stenosis. Divides into left anterior descending coronary artery and circumflex coronary artery. LEFT ANTERIOR DESCENDING CORONARY ARTERY: LAD and its branches, circumflex coronary artery and its branches are free of significant stenosis. RIGHT CORONARY ARTERY: Right coronary artery is a large dominant vessel and is free of significant stenosis. CONCLUSIONS: 1. Normal coronary arteries. 2. Normal left ventricular end-diastolic pressure. PLAN: Patient's chest discomfort is probably noncardiac in origin and her management is going to be in the form of risk factor modifications. Total sedation time ( ).
[2016-12-25] MEDS: FUROSEMIDE 20 MG TAB PO SCH (11:29)
[2016-12-25] MEDS: INSULIN GLARGINE 100 UNIT/ML 10 ML VIAL SQ SCH (11:29)
[2016-12-25 11:50] LABS: Glucose,Whole Blood 128 mg/dL (75-99)
[2016-12-25] MEDS ORDERED: INSULIN PUMP TARGET GLUCOSE 1 EACH MISC MISCELLANE PRN (13:22)
[2016-12-25] MEDS ORDERED: INSULIN LISPRO (humaLOG) 300 UNIT/3 ML VIAL SQ PRN (13:22)
[2016-12-25] MEDS ORDERED: INSPUCOR MISCELLANE PRN (13:22)
[2016-12-25] MEDS ORDERED: INSULIN PUMP BASAL RATES 1 EACH MISC MISCELLANE PRN (13:22)
--- NOTE | 2016-12-25 14:29 | P.DS ---
Providers Date of admission: 12/24/16 15:00 Expected date of discharge: 12/25/16 Attending physician: Maynor Joyce Consults: Dr. Crook Primary care physician: Rachel [facility] Course: discharge diagnosis 1. Chest pain:AZ ruled out. Twelve-lead EKG showed nonspecific ST segment changes in the inferior leads. Serial troponin negative 3 sets. Patient had a positive stress test few days ago as an outpatient. patient is status post heart catheterization showing normal coronary arteries. Patient is chest pain- free. And his been cleared by cardiology for discharge 2. Essential hypertension: Blood pressure well-controlled 3. Mixed hyperlipidemia total cholesterol [address] patient on Lipitor 20 mg daily. 4. Type 2 diabetes mellitus on insulin pump at home. hemoglobin A1c 7.5 Hospital course This is a 71-year-old female with past medical history noted below who presented to the emergency room with intermittent chest pain. Patient is been having chest pain for the past couple of weeks. She was evaluated by her primary care physician. She underwent a cardiac stress test/MPI as an outpatient a few days ago that was positive. Patient received a call from her primary care physician and as she was still having intermittent chest pressure she was advised to go to the emergency room for further evaluation. In the emergency room twelve-lead EKG showed no acute ischemic changes. Nonspecific ST segment changes on the inferior leads noted. Serial troponin negative 3 sets. Patient was seen evaluated by cardiology. She underwent heart catheterization which did show normal coronary arteries. She is chest pain- free. She's been cleared by cardiology for discharge. Case was discussed with Dr. Crook. She'll follow-up with cardiology outpatient setting in 1 week. Also have her follow-up with Dr. Dodge in 1 week Patient Condition at Discharge: Stable Plan - Discharge Summary Discharge Medication List Insulin Aspart [NovoLOG] See Protocol SQ-PUMP CONTINUOUS 03/20/14 [History] Pantoprazole Sodium [Protonix] 40 mg PO DAILY 03/20/14 [History] Enalapril [Vasotec] 10 mg PO DAILY 06/23/14 [History] Fluticasone/Salmeterol [Advair 250-50 Diskus] 1 puff INHALATION RT-BID 06/23/14 [History] Furosemide [Lasix] 20 mg PO DAILY 06/23/14 [History] rOPINIRole HCL [Requip] 8 mg PO DAILY 06/23/14 [History] Aspirin EC [Ecotrin Low Dose] 81 mg PO DAILY 12/23/16 [History] Carboxymethylcellulose Sodium [Refresh Tears] 1 drop BOTH EYES TID PRN 12/23/16 [History] Levothyroxine Sodium [Synthroid] 75 mcg PO DAILY 12/23/16 [History] Spironolactone 50 mg PO DAILY 12/23/16 [History] Venlafaxine HCl [Effexor XR] 75 mg PO TID 12/23/16 [History] busPIRone HCl [Buspar] 10 mg PO BID PRN 12/23/16 [History] traZODone HCL [Desyrel] 50 mg PO HS 12/23/16 [History] Follow up Appointment(s)/Referral(s): Jaxson Crook MD [STAFF PHYSICIAN] - 1 Week Rachel Monique DO [Primary Care Provider] - 1 Week Activity/Diet/Wound Care/Special Instructions: diet: cardiac, diabetic Activity: as tolerated Discharge Disposition: HOME SELF-CARE
[2016-12-25 14:33] VITALS: BP 143/70
[2016-12-25 16:13] VITALS: PULSE 76; RESP 18; TEMP 98.8
[2016-12-25] MEDS ORDERED: INSULIN PUMP MEAL BOLUS 1 UNIT MISC MISCELLANE SCH (17:30)
== END 2016-12-25 16:22 | disposition home or self-care (01) | DRG 287 ==
LOC: EC 11:48 → 3OBS 13:49 → OBSVTOIN 12-24 15:00 → 6SEL 12-25 09:35
PROVIDERS: ADMIT Internal Medicine; ATTEND Internal Medicine
PROC: B2111ZZ Fluoroscopy of Multiple Coronary Arteries using Low Osmolar Contrast (ICD-10-PCS; 2016-12-25)
PROC: 4A023N7 Measurement of Cardiac Sampling and Pressure, Left Heart, Percutaneous Approach (ICD-10-PCS; principal; 2016-12-25 09:40)
DX: R07.89 Other chest pain (principal); E11.9 Type 2 diabetes mellitus without complications; M06.9 Rheumatoid arthritis, unspecified; I10 Essential (primary) hypertension; F32.9 Major depressive disorder, single episode, unspecified; E78.2 Mixed hyperlipidemia; F41.9 Anxiety disorder, unspecified; J45.909 Unspecified asthma, uncomplicated; K21.9 Gastro-esophageal reflux disease without esophagitis; M79.7 Fibromyalgia; Z79.4 Long term (current) use of insulin; Z79.899 Other long term (current) drug therapy; Z86.73 Personal history of transient ischemic attack (TIA), and cerebral infarction without residual deficits; Z87.891 Personal history of nicotine dependence; Z91.041 Radiographic dye allergy status; Z96.41 Presence of insulin pump (external) (internal); Z96.653 Presence of artificial knee joint, bilateral; Z79.82 Long term (current) use of aspirin; R94.39 Abnormal result of other cardiovascular function study; R41.3 Other amnesia; Z98.84 Bariatric surgery status; M19.90 Unspecified osteoarthritis, unspecified site
CPT/HCPCS: 36415; 71020; 80048; 80053; 80061; 82550; 82553; 83036; 83735; 83880; 84484; 85025; 85049; 85610; 85730; 93005; 93458; 94760; 96365; 96366; 96376; 99291

== ENCOUNTER 2017-06-20 18:06 | Emergency (ER) | payer MEDICARE ==
[2017-06-20 18:17] VITALS: BP 169/84; PULSE 79; RESP 18; TEMP 98.6
--- NOTE | 2017-06-20 18:44 | ED ---
General Adult HPI - General Chief complaint: Extremity Injury, Upper Stated complaint: Fall Time Seen by Provider: 06/20/17 18:27 Source: patient, RN notes reviewed Mode of arrival: ambulatory Limitations: no limitations - History of Present Illness Initial comments: 72 yo female presents to the ER with cc of right shoulder pain. Patient states she was trying to walk on her dog and she tripped and landed onto her right shoulder. Patient states it hurts if she tries to take her shoulder up. Patient denies any nausea or vomiting with this. Patient denies any head injury. Patient denies any headache. She was concerned due to her symptoms so she thought that she should be evaluated. Patient denies any recent fever, chills, shortness of breath, chest pain, back pain, abdominal pain, nausea vomiting, numbness or tingling, dysuria or hematuria, constipation or diarrhea, headaches or visual changes, or any other current symptoms. - Related Data Home Medications Medication Instructions Recorded Confirmed Insulin Aspart [NovoLOG] See Protocol SQ-PUMP CONTINUOUS 03/20/14 12/23/16 Pantoprazole Sodium [Protonix] 40 mg PO DAILY 03/20/14 12/23/16 Enalapril [Vasotec] 10 mg PO DAILY 06/23/14 12/23/16 Fluticasone/Salmeterol [Advair 1 puff INHALATION RT-BID 06/23/14 12/23/16 250-50 Diskus] Furosemide [Lasix] 20 mg PO DAILY 06/23/14 12/23/16 rOPINIRole HCL [Requip] 8 mg PO DAILY 06/23/14 12/23/16 Aspirin EC [Ecotrin Low Dose] 81 mg PO DAILY 12/23/16 12/23/16 Carboxymethylcellulose Sodium 1 drop BOTH EYES TID PRN 12/23/16 12/23/16 [Refresh Tears] Levothyroxine Sodium [Synthroid] 75 mcg PO DAILY 12/23/16 12/23/16 Spironolactone 50 mg PO DAILY 12/23/16 12/23/16 Venlafaxine HCl [Effexor XR] 75 mg PO TID 12/23/16 12/23/16 busPIRone HCl [Buspar] 10 mg PO BID PRN 12/23/16 12/23/16 traZODone HCL [Desyrel] 50 mg PO HS 12/23/16 12/23/16 Previous Rx's Medication Instructions Recorded Atorvastatin Calcium [Lipitor] 20 mg PO HS #30 tab 12/25/16 Allergies Allergy/AdvReac Type Severity Reaction Status Date / Time banana [Banana] Allergy Rash/Hives, Verified 06/20/17 18:17 throat symptoms Fish Containing Products Allergy Swelling Verified 06/20/17 18:17 Iodinated Contrast- Oral and Allergy Anaphylaxis Verified 06/20/17 18:17 IV Dye [Iodinated Contrast Media - IV Dye] iodine Allergy Anaphylaxis Verified 06/20/17 18:17 Latex, Natural Rubber Allergy Swelling Verified 06/20/17 18:17 Penicillins Allergy Rash/Hives Verified 06/20/17 18:17 prochlorperazine edisylate Allergy Rapid Verified 06/20/17 18:17 [From Compazine] Heart Rate prochlorperazine maleate Allergy Rapid Verified 06/20/17 18:17 [From Compazine] Heart Rate codeine AdvReac Abdominal Verified 06/20/17 18:17 Pain hydromorphone HCl AdvReac confused Verified 06/20/17 18:17 [From Dilaudid] meperidine HCl [From Demerol] AdvReac Hallucinati Verified 06/20/17 18:17 ons Review of Systems ROS Statement: Those systems with pertinent positive or pertinent negative responses have been documented in the HPI. ROS Other: All systems not noted in ROS Statement are negative. Past Medical History Past Medical History: Asthma, Chest Pain / Angina, CVA/TIA, Diabetes Mellitus, Fibromyalgia, GERD/Reflux, Hypertension, Memory Impairment, Osteoarthritis (OA) , Pneumonia, Rheumatoid Arthritis (RA), Skin Disorder Additional Past Medical History / Comment(s): recent headaches, varicose veins, occ palpitations, contact dermatitis,hiatal hernia, hx ulcer, anemia, loss of short term memory History of Any Multi-Drug Resistant Organisms: None Reported Past Surgical History: Bariatric Surgery, Cholecystectomy, Hysterectomy, Joint Replacement, Orthopedic Surgery Additional Past Surgical History / Comment(s): Gastric sleeve removed, and LAP BAND REMOVED ON 12/09/2013. isaiah knee replacement, isaiah ankle surgery Past Anesthesia/Blood Transfusion Reactions: Motion Sickness Past Psychological History: Anxiety, Depression Smoking Status: Former smoker Past Alcohol Use History: None Reported Past Drug Use History: None Reported - Past Family History Mother Family Medical History: Cancer Father Family Medical History: Cancer Sister(s) Family Medical History: Cancer General Exam - General Exam Comments Initial Comments: General: The patient is awake and alert, in no distress, and does not appear acutely ill. Neck: The neck is supple, there is no tenderness. Cardiovascular: There is a regular rate and rhythm. No murmur, rub or gallop is appreciated. Respiratory: Lungs are clear to auscultation, respirations are non-labored, breath sounds are equal. No wheezes, stridor, rales, or rhonchi. Musculoskeletal: Sensation intact. 2+ pulses throughout the infection. Range of motion of right wrist and right elbow. Tenderness the patient throughout the right humerus. Tenderness with movement of the right shoulder. Tenderness in the right side of the neck. Neurological: CN II-XII intact, There are no obvious motor or sensory deficits. Coordination appears grossly intact. Speech is normal. Skin: Skin is warm and dry and no rashes or lesions are noted. Psychiatric: Normal mood and affect. Limitations: no limitations Course Vital Signs 06/20/17 18:13 Temperature 98.6 F Pulse Rate 79 Respiratory 18 Rate Blood Pressure 169/84 O2 Sat by Pulse 96 Oximetry Medical Decision Making - Medical Decision Making 72-year-old female presents to the emergency Department chief complaint of right shoulder pain. This time x-rays reviewed that shows no acute fracture. This time we discussed Motrin Tylenol for pain and ice. We discussed return parameters and follow-up with the follow-up to orthopedic we discussed all the patient's family's questions. He stated the Aiden they are given plan. They will be discharged home. - Radiology Data Radiology results: report reviewed, image reviewed Disposition Clinical Impression: Right shoulder strain Disposition: HOME SELF-CARE Condition: Stable Instructions: Shoulder Pain (ED) Additional Instructions: Please use medication as discussed. Please follow up with family doctor if symptoms have not improved over the next two days. Please return to the emergency room if your symptoms increase or worsen or for any other concerns. Referrals: Rachel Monique DO [Primary Care Provider] - 1-2 days Time of Disposition: 18:57
--- NOTE | 2017-06-20 18:52 | XR ---
EXAMINATION TYPE: XR shoulder complete RT DATE OF EXAM: 06/20/2017 COMPARISON: NONE HISTORY: Neck pain TECHNIQUE: 3 views FINDINGS: There is some spurring at the glenohumeral joint. I see no fracture nor dislocation. There is mild spurring at the AC joint. IMPRESSION: Osteoarthritic changes. No fracture seen.
--- NOTE | 2017-06-20 18:52 | XR ---
EXAMINATION TYPE: XR cervical spine comp DATE OF EXAM: 06/20/2017 COMPARISON: NONE HISTORY: Fall TECHNIQUE: 6 views FINDINGS: There is slight cervical kyphotic curvature. There is degenerative disc space from C4 to T1 with spurring of the endplates. The neural foramina are fairly well-maintained. Atlantoaxial facet j oint is normal. IMPRESSION: Multilevel spondylosis with mild kyphotic curvature. No fracture seen.
== END 2017-06-20 19:03 | disposition home or self-care (01) ==
LOC: EC 18:06
DX: S46.911A Strain of unspecified muscle, fascia and tendon at shoulder and upper arm level, right arm, initial encounter (principal); J45.909 Unspecified asthma, uncomplicated; E11.9 Type 2 diabetes mellitus without complications; M79.7 Fibromyalgia; K21.9 Gastro-esophageal reflux disease without esophagitis; I10 Essential (primary) hypertension; F41.9 Anxiety disorder, unspecified; F32.9 Major depressive disorder, single episode, unspecified; M06.9 Rheumatoid arthritis, unspecified; Z86.14 Personal history of Methicillin resistant Staphylococcus aureus infection; Z87.891 Personal history of nicotine dependence; Z98.890 Other specified postprocedural states; Z79.4 Long term (current) use of insulin; Z79.51 Long term (current) use of inhaled steroids; Z79.82 Long term (current) use of aspirin; Z79.899 Other long term (current) drug therapy; Z91.018 Allergy to other foods; Z91.013 Allergy to seafood; Z91.041 Radiographic dye allergy status; Z91.040 Latex allergy status; Z88.0 Allergy status to penicillin; Z88.5 Allergy status to narcotic agent; Z88.8 Allergy status to other drugs, medicaments and biological substances; W01.0XXA Fall on same level from slipping, tripping and stumbling without subsequent striking against object, initial encounter; Y93.K1 Activity, walking an animal
CPT/HCPCS: 72050; 99283

== ENCOUNTER 2018-03-25 22:13 | Emergency (ER) | payer MEDICARE, OTHER ==
--- NOTE | 2018-03-25 22:54 | ED ---
Fall HPI - General Chief Complaint: Fall Stated Complaint: Fall/Shoulder injury Time Seen by Provider: 03/25/18 22:27 Source: patient, RN notes reviewed Mode of arrival: ambulatory Limitations: no limitations - History of Present Illness Initial Comments: This a 72-year-old female presents emergency Department chief complaint of facial injury, right shoulder injury. Patient states that she was on the couch and rolled off striking her face on the ground and the table. Patient complains of a headache, facial pain. Patient states that she did not lose conscious. But she states that she is concerned that she normally does not have headaches. Patient states that she does not take any blood thinners. Patient does admit to increased right shoulder pain states that she had surgery one month ago by Dr. Huerta in which she had a total reverse shoulder surgery. Patient states it looks different than normal. Patient states she still has the same range of motion. Patient does not take any current pain meds for this. - Related Data Home Medications Medication Instructions Recorded Confirmed Insulin Aspart [NovoLOG See Protocol SQ-PUMP CONTINUOUS 03/20/14 03/25/18 (formulary)] Pantoprazole Sodium [Protonix] 40 mg PO DAILY 03/20/14 03/25/18 Enalapril [Vasotec] 10 mg PO DAILY 06/23/14 03/25/18 Fluticasone/Salmeterol [Advair 1 puff INHALATION RT-BID 06/23/14 03/25/18 250-50 Diskus] Furosemide [Lasix] 20 mg PO DAILY 06/23/14 03/25/18 rOPINIRole HCL [Requip] 8 mg PO DAILY 06/23/14 03/25/18 Aspirin EC [Ecotrin Low Dose] 81 mg PO DAILY 12/23/16 03/25/18 Levothyroxine Sodium [Synthroid] 75 mcg PO DAILY 12/23/16 03/25/18 Spironolactone 50 mg PO DAILY 12/23/16 03/25/18 Venlafaxine HCl [Effexor XR] 75 mg PO TID 12/23/16 03/25/18 busPIRone HCl [Buspar] 10 mg PO BID PRN 12/23/16 03/25/18 traZODone HCL [Desyrel] 50 mg PO HS 03/18/17 06/18/18 Previous Rx's Medication Instructions Recorded Atorvastatin Calcium [Lipitor] 20 mg PO HS #30 tab 12/25/16 Allergies Allergy/AdvReac Type Severity Reaction Status Date / Time banana [Banana] Allergy Rash/Hives, Verified 03/25/18 23:08 throat symptoms Fish Containing Products Allergy Swelling Verified 03/25/18 23:08 Iodinated Contrast- Oral and Allergy Anaphylaxis Verified 03/25/18 23:08 IV Dye [Iodinated Contrast Media - IV Dye] iodine Allergy Anaphylaxis Verified 03/25/18 23:08 Latex, Natural Rubber Allergy Swelling Verified 03/25/18 23:08 Penicillins Allergy Rash/Hives Verified 03/25/18 23:08 prochlorperazine edisylate Allergy Rapid Verified 03/25/18 23:08 [From Compazine] Heart Rate prochlorperazine maleate Allergy Rapid Verified 03/25/18 23:08 [From Compazine] Heart Rate codeine AdvReac Abdominal Verified 03/25/18 23:08 Pain hydromorphone HCl AdvReac confused Verified 03/25/18 23:08 [From Dilaudid] meperidine HCl [From Demerol] AdvReac Hallucinati Verified 03/25/18 23:08 ons Review of Systems ROS Statement: Those systems with pertinent positive or pertinent negative responses have been documented in the HPI. ROS Other: All systems not noted in ROS Statement are negative. Past Medical History Past Medical History: Asthma, Chest Pain / Angina, CVA/TIA, Diabetes Mellitus, Fibromyalgia, GERD/Reflux, Hypertension, Memory Impairment, Osteoarthritis (OA) , Pneumonia, Rheumatoid Arthritis (RA), Skin Disorder Additional Past Medical History / Comment(s): recent headaches, varicose veins, occ palpitations, contact dermatitis,hiatal hernia, hx ulcer, anemia, loss of short term memory History of Any Multi-Drug Resistant Organisms: None Reported Past Surgical History: Bariatric Surgery, Cholecystectomy, Hysterectomy, Joint Replacement, Orthopedic Surgery Additional Past Surgical History / Comment(s): Gastric sleeve removed, and LAP BAND REMOVED ON 12/09/2013. isaiah knee replacement, isaiah ankle surgery, right shoulder Past Anesthesia/Blood Transfusion Reactions: Motion Sickness Past Psychological History: Anxiety, Depression Smoking Status: Former smoker Past Alcohol Use History: None Reported Past Drug Use History: None Reported - Past Family History Mother Family Medical History: Cancer Father Family Medical History: Cancer Sister(s) Family Medical History: Cancer General Exam Limitations: no limitations General appearance: alert, in no apparent distress Head exam: Present: atraumatic, normocephalic. Absent: normal inspection ( There is abrasion noted from the forehead and across her right maxillary region mild swelling to the forehead) Eye exam: Present: normal appearance, PERRL, EOMI. Absent: scleral icterus, conjunctival injection, periorbital swelling ENT exam: Present: normal exam, normal oropharynx ( and tenderness with palpation), mucous membranes moist, TM's normal bilaterally Neck exam: Present: normal inspection, full ROM. Absent: tenderness, meningismus, lymphadenopathy Respiratory exam: Present: normal lung sounds bilaterally. Absent: respiratory distress, wheezes, rales, rhonchi, stridor Cardiovascular Exam: Present: regular rate, normal rhythm, normal heart sounds. Absent: systolic murmur, diastolic murmur, rubs, gallop, clicks Extremities exam: Present: other (Right shoulder there is a surgical scar noted , patient has limited range of motion though she reports this is normal for her. Arm is neurovascularly intact there is mild swelling and mild to moderate tenderness with palpation.) Back exam: Present: full ROM. Absent: tenderness Neurological exam: Present: alert, oriented X3, CN II-XII intact, reflexes normal, other (Finger to nose intact bilaterally). Absent: motor sensory deficit Course Vital Signs 03/25/18 03/25/18 22:19 23:12 Temperature 98 F 97.3 F L Pulse Rate 76 82 Respiratory 18 20 Rate Blood Pressure 153/84 161/72 O2 Sat by Pulse 96 98 Oximetry Medical Decision Making - Medical Decision Making 72-year-old female presented emergency from for right shoulder pain, headache after fall. Patient rolled off her couch struck her head on the ground of the table. Patient had CT her brain, C-spine and facial bones which is negative for any acute injury. Patient recent shoulder surgery x-ray shows prosthetic components in place. Patient will follow-up with her surgeon. Head injury instructions were given. Disposition Clinical Impression: Fall, Head injury, Right shoulder injury Disposition: HOME SELF-CARE Condition: Stable Instructions: Head Injury (ED) Additional Instructions: Please return to the Emergency Department if symptoms worsen or any other concerns. Is patient prescribed a controlled substance at d/c from ED?: No Referrals: Rachel Monique DO [Primary Care Provider] - 1-2 days
--- NOTE | 2018-03-25 23:08 | CT ---
EXAMINATION TYPE: CT brain selena fitzpatrick DATE OF EXAM: 03/25/2018 COMPARISON: NONE HISTORY: Patient rolled off of couch onto the floor. Headache. CT DLP: 1618.17 mGycm Automated exposure control for dose reduction was used. TECHNIQUE: CT scan of the head and cervical spine are performed without contrast. FINDINGS: There is cerebral cortical atrophy. There is no mass effect or midline shift. There is no sign of intracranial hemorrhage. The calvarium is intact. There is a mild cervical kyphotic curvature. There is degenerative disc space narrowing from C4 to T1 with spurring of the endplates. The posterior elements are intact. I see no fracture. Skull base is intact. IMPRESSION: Cerebral atrophy. No acute intracranial abnormality. Spondylotic changes with mild kyphotic curvature probably due to old injury. No acute bony abnormalit y.
--- NOTE | 2018-03-25 23:10 | CT ---
EXAMINATION TYPE: CT facial bones wo con DATE OF EXAM: 03/25/2018 COMPARISON: NONE HISTORY: Patient rolled off of couch onto the floor. Headache. CT DLP: 589.02 mGycm Automated exposure control for dose reduction was used. TECHNIQUE: CT scan of the sinuses is performed without contrast, axial images are obtained, coronal r eformatted images are also reviewed. FINDINGS: The orbital margins are intact and there is no blowout fracture. There is bilateral patency of the estimated complex. There is normal aeration of the paranasal sinuses. The nasal bone appears intact. The maxilla is intact. There is no evidence of retro-orbital mass. The mandibular ring is int act. Temporomandibular joints appear normal. Zygomatic arches appear normal. IMPRESSION: Negative exam. No evidence of traumatic injury. Normal paranasal sinuses.
--- NOTE | 2018-03-25 23:16 | XR ---
EXAMINATION TYPE: XR shoulder complete RT DATE OF EXAM: 03/25/2018 COMPARISON: 06/20/2017 HISTORY: Fall. Pain. TECHNIQUE: 4 views. FINDINGS: There is a right shoulder prosthesis. Components are in anatomic position. I see no fracture.: AC stephy int is intact. IMPRESSION: No fracture seen.
[2018-03-25 23:17] VITALS: BP 161/72; PULSE 82; RESP 20; TEMP 97.3
== END 2018-03-25 23:24 | disposition home or self-care (01) ==
LOC: EC 22:13
DX: S00.81XA Abrasion of other part of head, initial encounter (principal); S49.91XA Unspecified injury of right shoulder and upper arm, initial encounter; J45.909 Unspecified asthma, uncomplicated; E11.9 Type 2 diabetes mellitus without complications; M79.7 Fibromyalgia; K21.9 Gastro-esophageal reflux disease without esophagitis; F41.9 Anxiety disorder, unspecified; F32.9 Major depressive disorder, single episode, unspecified; I10 Essential (primary) hypertension; M06.9 Rheumatoid arthritis, unspecified; Z86.73 Personal history of transient ischemic attack (TIA), and cerebral infarction without residual deficits; Z98.890 Other specified postprocedural states; Z96.653 Presence of artificial knee joint, bilateral; Z87.891 Personal history of nicotine dependence; Z79.4 Long term (current) use of insulin; Z79.51 Long term (current) use of inhaled steroids; Z79.82 Long term (current) use of aspirin; Z79.899 Other long term (current) drug therapy; Z91.018 Allergy to other foods; Z91.013 Allergy to seafood; Z91.041 Radiographic dye allergy status; Z91.048 Other nonmedicinal substance allergy status; Z91.040 Latex allergy status; Z88.0 Allergy status to penicillin; Z88.8 Allergy status to other drugs, medicaments and biological substances; Z88.5 Allergy status to narcotic agent; W08.XXXA Fall from other furniture, initial encounter; Y92.009 Unspecified place in unspecified non-institutional (private) residence as the place of occurrence of the external cause
CPT/HCPCS: 70450; 70486; 72125; 99284

== ENCOUNTER → 2018-09-20 | Outpatient (CLI) | payer MEDICARE | LOC: LABPAT 13:01 | PROVIDERS: ATTEND Surgery | DX: Z01.812 Encounter for preprocedural laboratory examination (principal); K43.2 Incisional hernia without obstruction or gangrene; K43.9 Ventral hernia without obstruction or gangrene | CPT/HCPCS: 36415; 86850; 86900; 86901; 93005 ==

== ENCOUNTER 2018-09-24 07:31 | Day surgery (SDC) | payer MEDICARE, OTHER ==
[2018-09-23 08:50] VITALS: BMI 34.7
[~2018-09-24 07:31] MED LIST changes: +DEXAMETHASONE SOD PHOSPHATE 10 MG/ML 1 ML VIAL IV ONE; +HEPARIN SODIUM,PORCINE 5,000 UNIT/ML 1 ML VIAL SQ ONE; +HYDROmorphone 0.5 MG/0.5 ML SYRINGE IVP PRN; +LACTATED RINGERS 1,000 ML IV SCH; +LIDOCAINE 1% 20 ML VIAL (10MG/ML) FOR IV START INTRADERMA PRN; +MIDAZOLAM (PF) 2 MG/2 ML VIAL IV PRN; +ONDANSETRON 4 MG/2 ML VIAL IVP ONE; -REGADENOSON 0.4 MG/5 ML SYRINGE IV ONE; +SCOPOLAMINE 1.5MG/72HR PATCH TRANSDERM ONE; +ceFAZolin IN SWFI 2 GM/20 ML SYRINGE IVP ONE
[2018-09-24 08:36] LABS: Glucose,Whole Blood 154 mg/dL (75-99)
[2018-09-24] MEDS ORDERED: fentaNYL (PF) 50 MCG/ML 2 ML AMP IV ONE (08:43)
[2018-09-24 08:54] LABS: Basophils # (A) 0.1 k/uL (0-0.2); Basophils % (A) 1 %; Eosinophils # (A) 0.3 k/uL (0-0.7); Eosinophils % (A) 3 %; HCT 38.3 % (34.0-46.0); HGB 12.1 gm/dL (11.4-16.0); Lymphocytes # (A) 2.2 k/uL (1.0-4.8); Lymphocytes % (A) 26 %; MCH 27.8 pg (25.0-35.0); MCHC 31.5 g/dL (31.0-37.0); MCV 88.4 fL (80.0-100.0); Mean Platelet Volume 6.9; Monocytes # (A) 0.3 k/uL (0-1.0); Monocytes % (A) 4 %; Neutrophils # (A) 5.5 k/uL (1.3-7.7); Neutrophils % (A) 65 %; Platelet Count 258 k/uL (150-450); RBC 4.34 m/uL (3.80-5.40); RDW 15.2 % (11.5-15.5); WBC 8.4 k/uL (3.8-10.6)
[2018-09-24 08:57] VITALS: RESP 16
[2018-09-24] MEDS ORDERED: LIDOCAINE 1% INJ 10MG/ML (20 ML MDV) ONE (09:20)
[2018-09-24] MEDS ORDERED: VECURONIUM 10 MG VIAL IV ONE (09:20)
[2018-09-24] MEDS ORDERED: NEOSTIGMINE 1 MG/ML 10 ML VIAL ONE (09:20)
[2018-09-24] MEDS ORDERED: GLYCOPYRROLATE 0.2 MG/ML 2 ML VIAL ONE (09:20)
[2018-09-24] MEDS ORDERED: ePHEDrine SULFATE/0.9% NACL/PF 50 MG/5 ML SYRINGE IV ONE (09:20)
[2018-09-24] MEDS ORDERED: PROPOFOL 10 MG/ML 20 ML VIAL IV ONE (09:20)
[2018-09-24] MEDS ORDERED: ROPIVACAINE 5 MG/ML 30 ML VIAL ONE (09:20)
[2018-09-24] MEDS ORDERED: SUCCINYLCHOLINE CHLORIDE 100 MG/5 ML SYR IV ONE (09:20)
[2018-09-24] MEDS ORDERED: MIDAZOLAM 2 MG/2 ML VIAL ONE (09:20)
[2018-09-24] MEDS ORDERED: fentaNYL (PF) 50 MCG/ML 2 ML AMP ONE (09:20)
--- NOTE | 2018-09-24 09:38 | P.ONQ ---
Anesthesiology Proc Note - PNB - Peripheral Nerve Block Performed Bilateral Rectus Abdominis Single Time Out Performed: Yes Procedure Start Time: 08:40 Procedure Stop Time: 08:50 Indication: Acute Post-Operative Pain, Analgesia, Dx/Pain Location, Requested by physician Sedation Type: Sedate with meaningful contact maintained Preparation: Sterile Prep Position: Supine Needle Size: 50mm (2"), 100mm (4") Needle Gauge: 20 Technique: Ultrasound Injectate: 0.5% Ropivacaine (see comment for volume) Blood Aspirated: No Pain Paresthesia on Injection Noted: No Resistance on Injection: Normal Events: Uneventful and Well Tolerated (30 ml total volume)
[2018-09-24] MEDS ORDERED: BUPIVACAIN-EPI 0.25%-1:200,000 30 ML VIAL SQ ONE ×2 (09:50)
[2018-09-24] MEDS ORDERED: LACTATED RINGERS 1,000 ML IV ONE ×2 (09:51→10:50)
[2018-09-24] MEDS ORDERED: ACETAMINOPHEN TAB 325 MG TAB PO PRN (10:50)
[2018-09-24] MEDS ORDERED: METOCLOPRAMIDE 5 MG/ML 2 ML VIAL IVP PRN (10:50)
[2018-09-24] MEDS ORDERED: ONDANSETRON 4 MG/2 ML VIAL IVP PRN (10:50)
[2018-09-24] MEDS ORDERED: HYDROcodone/APAP 5-325MG 1 EACH TAB PO PRN (10:50)
[2018-09-24] MEDS ORDERED: NALOXONE 0.4 MG/ML 1 ML VIAL IV PRN (10:50)
[2018-09-24] MEDS ORDERED: HYDROmorphone 0.5 MG/0.5 ML SYRINGE IVP PRN (10:50)
[2018-09-24 10:54] VITALS: TEMP 97.2
--- NOTE | 2018-09-24 10:56 | P.GSHP ---
History of Present Illness H&P Date: 09/24/18 Chief Complaint: Incarcerated ventral hernia This is a 73-year-old female has developed an incarcerated ventral hernia in the left periumbilical area. She presents today for laparoscopic robotic- assisted repair. Past Medical History Past Medical History: Asthma, Chest Pain / Angina, CVA/TIA, Diabetes Mellitus, Fibromyalgia, GERD/Reflux, Hyperlipidemia, Hypertension, Memory Impairment, Osteoarthritis (OA), Pneumonia, Rheumatoid Arthritis (RA), Skin Disorder, Thyroid Disorder Additional Past Medical History / Comment(s): Hx. of headaches, varicose veins, hx. of occ palpitations, hiatal hernia, hx ulcer, anemia. History of Any Multi-Drug Resistant Organisms: None Reported Past Surgical History: Bariatric Surgery, Cholecystectomy, Hysterectomy, Joint Replacement, Orthopedic Surgery Additional Past Surgical History / Comment(s): Gastric sleeve removed, and LAP BAND REMOVED ON 12/09/2013. isaiah knee replacement, isaiah ankle surgery, right shoulder. Past Anesthesia/Blood Transfusion Reactions: No Reported Reaction Smoking Status: Never smoker - Past Family History Mother Family Medical History: Cancer Additional Family Medical History / Comment(s): Lung Father Family Medical History: Cancer Additional Family Medical History / Comment(s): Colon Sister(s) Family Medical History: Cancer Additional Family Medical History / Comment(s): Adrenal Medications and Allergies Home Medications Medication Instructions Recorded Confirmed Type Pantoprazole Sodium [Protonix] 40 mg PO DAILY 03/20/14 09/24/18 History Enalapril [Vasotec] 10 mg PO DAILY 06/23/14 09/24/18 History Fluticasone/Salmeterol [Advair 1 puff INHALATION RT-BID 06/23/14 09/24/18 History 250-50 Diskus] Furosemide [Lasix] 20 mg PO DAILY 06/23/14 09/24/18 History rOPINIRole HCL [Requip] 8 mg PO DAILY 06/23/14 09/24/18 History Aspirin EC [Ecotrin Low Dose] 81 mg PO DAILY 12/23/16 09/24/18 History Levothyroxine Sodium [Synthroid] 75 mcg PO DAILY 12/23/16 09/24/18 History Spironolactone 50 mg PO DAILY 12/23/16 09/24/18 History Venlafaxine HCl [Effexor XR] 75 mg PO TID 12/23/16 09/24/18 History busPIRone HCl [Buspar] 10 mg PO BID PRN 12/23/16 09/24/18 History Atorvastatin Calcium [Lipitor] 20 mg PO HS #30 tab 12/25/16 09/24/18 Rx Insulin Aspart (For Pump) [NovoLOG 0.01 unit SQ-PUMP CONTINUOUS 09/24/18 History (For Pump)] Allergies Allergy/AdvReac Type Severity Reaction Status Date / Time banana [Banana] Allergy Rash/Hives, Verified 09/24/18 08:01 throat symptoms Fish Containing Products Allergy Swelling Verified 09/24/18 08:01 Iodinated Contrast- Oral and Allergy Anaphylaxis Verified 09/24/18 08:01 IV Dye [Iodinated Contrast Media - IV Dye] iodine Allergy Anaphylaxis Verified 09/24/18 08:01 Latex, Natural Rubber Allergy Swelling Verified 09/24/18 08:01 Penicillins Allergy Rash/Hives Verified 09/24/18 08:01 prochlorperazine edisylate Allergy Rapid Verified 09/24/18 08:01 [From Compazine] Heart Rate prochlorperazine maleate Allergy Rapid Verified 09/24/18 08:01 [From Compazine] Heart Rate codeine AdvReac Abdominal Verified 09/24/18 08:01 Pain hydromorphone HCl AdvReac confused Verified 09/24/18 08:01 [From Dilaudid] meperidine HCl [From Demerol] AdvReac Hallucinati Verified 09/24/18 08:01 ons Surgical - Exam Vital Signs Temp Resp BP Pulse Ox 97.8 F 16 159/78 100 09/24/18 08:56 09/24/18 08:56 09/24/18 08:56 09/24/18 08:56 - General well developed, no distress - Eyes PERRL - ENT normal pinna - Neck no masses - Respiratory normal expansion - Cardiovascular Rhythm: regular - Abdomen Abdomen: soft, non tender Hernia: incisional - Genitourinary 4 cm incisional hernia located in the left periumbilical Local area Results - Labs 09/24/18 08:32 09/24/18 08:32 Abnormal Lab Results - Last 24 Hours (Table) 09/24/18 Range/Units 08:30 POC Glucose (mg/dL) 154 H (75-99) mg/dL Diabetes panel 09/24/18 Range/Units 08:32 Potassium 4.1 (3.5-5.1) mmol/L Pituitary panel 09/24/18 Range/Units 08:32 Potassium 4.1 (3.5-5.1) mmol/L Adrenal panel 09/24/18 Range/Units 08:32 Potassium 4.1 (3.5-5.1) mmol/L Assessment and Plan Assessment: Incarcerated incisional hernia. We'll perform laparoscopic robotic-assisted repair.
--- NOTE | 2018-09-24 10:59 | P.OP ---
Date of Procedure: 09/24/18 Preoperative Diagnosis: Incarcerated incisional hernia Postoperative Diagnosis: Incarcerated incisional hernia Adhesions Partial omentectomy Procedure(s) Performed: Laparoscopic robotic Incarcerated incisional hernia repair. Lysis of adhesions Partial omentectomy Anesthesia: LISET Surgeon: Mario Mckinney Estimated Blood Loss (ml): 5 Pathology: other (Omentum) Condition: stable Disposition: PACU Description of Procedure: The patient was placed on the operating table in the supine position. He received general anesthesia. His abdomen was prepped and draped usual fashion. Using a 5 mm optical trocar under direct visualization the peritoneal cavity was entered in the left upper quadrant. The abdomen was then insufflated. The laparoscope was placed back into the perineal cavity. Next a 8 mm robotic trocar was placed in the left lower quadrant and a 12 mm robotic trocar was placed in the left lateral position. The original 5 mm trocar was exchanged for a 8 mm robotic trocar. The patient's placed in the left side up position. And the patient was docked to the robot. The patient had significant adhesions. These were lysed using electrocautery. The incisional hernia was visualized. Using hook cautery the peritoneum over the incisional hernia was excised. The incarcerated omentum was retrieved from the hernia and transected with a large cautery. The fascial opening was repaired using 0V LOC suture. Next a piece of 11 cm round ventral light ST mesh was placed into the. Cavity and secured with 2 OV lock suture. The patient was undocked the robot. The needles were retrieved. The omentum was retrieved. The fascia of the 12 mm trocar site was closed with 0 Ethibond suture. Skin was closed interrupted 3-0 Monocryl suture. Dermabond dressings was applied. Patient tolerated procedure well and was sent to recovery room stable condition.
[2018-09-24] MEDS ORDERED: KETOROLAC 30 MG/ML 1 ML VIAL IVP SCH (11:00)
[2018-09-24 11:09] LABS: Glucose,Whole Blood 194 mg/dL (75-99)
[2018-09-24] MEDS ORDERED: fentaNYL (PF) 50 MCG/ML 2 ML AMP IVP ONE (11:10)
[2018-09-24 13:23] LABS: Glucose,Whole Blood 228 mg/dL (75-99)
[2018-09-24 14:10] VITALS: BP 146/77; PULSE 104
[2018-09-24] MEDS ORDERED: HYDROcodone/APAP 5-325MG 1 EACH TAB PO ONE (14:17)
[2018-09-24] MEDS ORDERED: DOCUSATE 100 MG CAP PO SCH (21:00)
[2018-09-25] MEDS ORDERED: ENOXAPARIN 40 MG/0.4 ML SYRINGE SQ SCH (09:00)
== END 2018-09-24 14:42 | disposition home or self-care (01) ==
LOC: OR 07:31
PROVIDERS: ATTEND Surgery
DX: K43.0 Incisional hernia with obstruction, without gangrene (principal); K66.0 Peritoneal adhesions (postprocedural) (postinfection); J45.909 Unspecified asthma, uncomplicated; I20.9 Angina pectoris, unspecified; E11.9 Type 2 diabetes mellitus without complications; M79.7 Fibromyalgia; K21.9 Gastro-esophageal reflux disease without esophagitis; E78.5 Hyperlipidemia, unspecified; R41.3 Other amnesia; M19.90 Unspecified osteoarthritis, unspecified site; M06.9 Rheumatoid arthritis, unspecified; E07.9 Disorder of thyroid, unspecified; I83.90 Asymptomatic varicose veins of unspecified lower extremity; I11.0 Hypertensive heart disease with heart failure; I50.9 Heart failure, unspecified; D64.9 Anemia, unspecified; Z79.82 Long term (current) use of aspirin; Z79.890 Hormone replacement therapy; Z79.4 Long term (current) use of insulin; Z79.51 Long term (current) use of inhaled steroids; Z79.899 Other long term (current) drug therapy; Z96.41 Presence of insulin pump (external) (internal); Z96.653 Presence of artificial knee joint, bilateral; Z91.041 Radiographic dye allergy status; Z91.040 Latex allergy status; Z88.0 Allergy status to penicillin; Z91.013 Allergy to seafood; Z88.8 Allergy status to other drugs, medicaments and biological substances; Z91.018 Allergy to other foods; Z88.5 Allergy status to narcotic agent; Z90.49 Acquired absence of other specified parts of digestive tract; Z90.710 Acquired absence of both cervix and uterus; Z86.73 Personal history of transient ischemic attack (TIA), and cerebral infarction without residual deficits
CPT/HCPCS: 64488; 84132; 85025; 88302; 49655; C1781; J2250 ×2; J1644; J1100; J2710; J2405; J2001; J3010; J2795; J0330; J2704; J0690; 36415; 64486; 86850; 86900; 86901

== ENCOUNTER 2018-10-01 11:18 | Emergency (ER) | payer MEDICARE ==
[2018-10-01 11:32] VITALS: BP 161/79; PULSE 84; RESP 18; TEMP 98.2
[2018-10-01] MEDS ORDERED: HYDROcodone/APAP 5-325MG 1 EACH TAB PO STA (12:08)
--- NOTE | 2018-10-01 12:14 | ED ---
General Adult HPI - General Chief complaint: Abdominal Pain Stated complaint: Post surgical pain, low sugar, anxiety Source: patient Mode of arrival: wheelchair Limitations: no limitations - History of Present Illness Initial comments: Dictation was produced using [employer] dictation software. please excuse any grammatical, word or spelling errors. Chief Complaint: 73yo female presents with abdominal pain. History of Present Illness: A 3-year-old female with multiple comorbidities presents with abdominal pain 3 days. She had hernia repair surgery performed approximately one week ago. Patient denies any nausea vomiting. Patient had normal bowel movement yesterday. Patient states she ran out of her pain medications. Denies any constitutional symptoms. She otherwise feels fine. She does feel a little jittery. The ROS documented in this emergency department record has been reviewed and confirmed by me. Those systems with pertinent positive or negative responses have been documented in the HPI. All other systems are other negative and/or noncontributory. - Related Data Home Medications Medication Instructions Recorded Confirmed Pantoprazole Sodium [Protonix] 40 mg PO DAILY 03/20/14 09/24/18 Enalapril [Vasotec] 10 mg PO DAILY 06/23/14 09/24/18 Fluticasone/Salmeterol [Advair 1 puff INHALATION RT-BID 06/23/14 09/24/18 250-50 Diskus] Furosemide [Lasix] 20 mg PO DAILY 06/23/14 09/24/18 rOPINIRole HCL [Requip] 8 mg PO DAILY 06/23/14 09/24/18 Aspirin EC [Ecotrin Low Dose] 81 mg PO DAILY 12/23/16 09/24/18 Levothyroxine Sodium [Synthroid] 75 mcg PO DAILY 12/23/16 09/24/18 Spironolactone 50 mg PO DAILY 12/23/16 09/24/18 Venlafaxine HCl [Effexor XR] 75 mg PO TID 12/23/16 09/24/18 busPIRone HCl [Buspar] 10 mg PO BID PRN 12/23/16 09/24/18 Insulin Aspart (For Pump) [NovoLOG 0.01 unit SQ-PUMP CONTINUOUS 09/24/18 (For Pump)] Previous Rx's Medication Instructions Recorded Atorvastatin Calcium [Lipitor] 20 mg PO HS #30 tab 12/25/16 Docusate [Colace] 100 mg PO BID #20 capsule 09/24/18 HYDROcodone/APAP 7.5-325MG [[place] 1 tab PO Q4H PRN 3 Days #18 tab 09/24/18 7.5-325] HYDROcodone/APAP 5-325MG [[place] 1 tab PO Q6HR PRN 3 Days #12 tab 10/01/18 5-325] Allergies Allergy/AdvReac Type Severity Reaction Status Date / Time banana [Banana] Allergy Rash/Hives, Verified 09/24/18 08:01 throat symptoms Fish Containing Products Allergy Swelling Verified 09/24/18 08:01 Iodinated Contrast- Oral and Allergy Anaphylaxis Verified 09/24/18 08:01 IV Dye [Iodinated Contrast Media - IV Dye] iodine Allergy Anaphylaxis Verified 09/24/18 08:01 Latex, Natural Rubber Allergy Swelling Verified 09/24/18 08:01 Penicillins Allergy Rash/Hives Verified 09/24/18 08:01 prochlorperazine edisylate Allergy Rapid Verified 09/24/18 08:01 [From Compazine] Heart Rate prochlorperazine maleate Allergy Rapid Verified 09/24/18 08:01 [From Compazine] Heart Rate codeine AdvReac Abdominal Verified 09/24/18 08:01 Pain hydromorphone HCl AdvReac confused Verified 09/24/18 08:01 [From Dilaudid] meperidine HCl [From Demerol] AdvReac Hallucinati Verified 09/24/18 08:01 ons Review of Systems ROS Statement: Those systems with pertinent positive or pertinent negative responses have been documented in the HPI. ROS Other: All systems not noted in ROS Statement are negative. Past Medical History Past Medical History: Asthma, Chest Pain / Angina, CVA/TIA, Diabetes Mellitus, Fibromyalgia, GERD/Reflux, Hyperlipidemia, Hypertension, Memory Impairment, Osteoarthritis (OA), Pneumonia, Rheumatoid Arthritis (RA), Skin Disorder, Thyroid Disorder Additional Past Medical History / Comment(s): Hx. of headaches, varicose veins, hx. of occ palpitations, hiatal hernia, hx ulcer, anemia. History of Any Multi-Drug Resistant Organisms: None Reported Past Surgical History: Bariatric Surgery, Cholecystectomy, Hernia Repair, Hysterectomy, Joint Replacement, Orthopedic Surgery Additional Past Surgical History / Comment(s): Gastric sleeve removed, and LAP BAND REMOVED ON 12/09/2013. isaiah knee replacement, isaiah ankle surgery, right shoulder. Past Anesthesia/Blood Transfusion Reactions: No Reported Reaction Past Psychological History: Anxiety, Depression Smoking Status: Never smoker Past Alcohol Use History: None Reported Past Drug Use History: Unable to Obtain - Past Family History Mother Family Medical History: Cancer Additional Family Medical History / Comment(s): Lung Father Family Medical History: Cancer Additional Family Medical History / Comment(s): Colon Sister(s) Family Medical History: Cancer Additional Family Medical History / Comment(s): Adrenal General Exam - General Exam Comments Initial Comments: PHYSICAL EXAM: General Impression: Alert and oriented x3, not in acute distress HEENT: Normocephalic atraumatic, extra-ocular movements intact, pupils equal and reactive to light bilaterally, mucous membranes moist. Cardiovascular: Heart regular rate and rhythm, S1&S2 audible, no murmurs, rubs or gallops Chest: Lungs clear to auscultation bilaterally, no rhonchi, no wheeze, no rales Abdomen: Bowel sounds present, abdomen soft, non-tender, non-distended, no organomegaly, surgical site clean dry and intact Musculoskeletal: Pulses present and equal in all extremities, no peripheral edema Motor: Power 5/5 bilaterally, no focal deficits noted Neurological: CN II-XII grossly intact, no focal motor or sensory deficits noted Skin: Intact with no visualized rashes Psych: Normal affect and mood Limitations: no limitations Course Vital Signs 10/01/18 11:29 Temperature 98.2 F Pulse Rate 84 Respiratory 18 Rate Blood Pressure 161/79 O2 Sat by Pulse 96 Oximetry Medical Decision Making - Medical Decision Making ED course: 73-year-old female presents with abdominal pain. She did have hernia surgery performed approximately one week ago by Dr. Mckinney here at this hospital. Vital signs upon arrival are within acceptable limits. Examination is benign. Surgical site appears clean dry and intact. Operative report was reviewed. There was performance of laparoscopic robotic incarcerated incisional hernia repair. Advised of adhesion and partial omentectomy. Labs are obtained showing no acute processes. Pending urinalysis. She denies any urinary symptoms. She became tearful. She is given some Xanax for her anxiety. Patient told to follow-up with her general surgeon tomorrow. Is also given refill on her pain medications. Patient told to watch for signs of worsening abdominal pain or constitutional symptoms. She is told to return with any worsening symptoms. - Lab Data Result diagrams: 10/01/18 12:00 10/01/18 12:00 Lab Results 10/01/18 10/01/18 10/01/18 Range/Units 12:00 12:00 12:00 WBC 6.9 (3.8-10.6) k/uL RBC 4.17 (3.80-5.40) m/uL Hgb 11.6 (11.4-16.0) gm/dL Hct 36.7 (34.0-46.0) % MCV 87.9 (80.0-100.0) fL MCH 27.9 (25.0-35.0) pg MCHC 31.8 (31.0-37.0) g/dL RDW 14.9 (11.5-15.5) % Plt Count 236 (150-450) k/uL Neutrophils % 73 % Lymphocytes % 17 % Monocytes % 4 % Eosinophils % 4 % Basophils % 0 % Neutrophils # 5.0 (1.3-7.7) k/uL Lymphocytes # 1.2 (1.0-4.8) k/uL Monocytes # 0.3 (0-1.0) k/uL Eosinophils # 0.3 (0-0.7) k/uL Basophils # 0.0 (0-0.2) k/uL Sodium 140 (137-145) mmol/L Potassium 3.6 (3.5-5.1) mmol/L Chloride 109 H (98-107) mmol/L Carbon Dioxide 26 (22-30) mmol/L Anion Gap 5 mmol/L BUN 16 (7-17) mg/dL Creatinine 0.61 (0.52-1.04) mg/dL Est GFR (CKD-EPI)AfAm >90 (>60 ml/min/1.73 sqM) Est GFR (CKD-EPI)NonAf >90 (>60 ml/min/1.73 sqM) Glucose 88 (74-99) mg/dL Plasma Lactic Acid Amilcar 0.8 (0.7-2.0) mmol/L Calcium 8.8 (8.4-10.2) mg/dL Total Bilirubin 0.6 (0.2-1.3) mg/dL AST 26 (14-36) U/L ALT 35 (9-52) U/L Alkaline Phosphatase 107 (38-126) U/L Total Protein 6.2 L (6.3-8.2) g/dL Albumin 3.3 L (3.5-5.0) g/dL Lipase 29 (23-300) U/L Urine Color Urine Appearance (Clear) Urine pH (5.0-8.0) Ur Specific [place] (1.001-1.035) Urine Protein (Negative) Urine Glucose (UA) (Negative) Urine Ketones (Negative) Urine Blood (Negative) Urine Nitrite (Negative) Urine Bilirubin (Negative) Urine Urobilinogen (<2.0) mg/dL Ur Leukocyte Esterase (Negative) Urine WBC (0-5) /hpf Ur Squamous Epith Cells (0-4) /hpf Urine Bacteria (None) /hpf Urine Mucus (None) /hpf 10/01/18 Range/Units 14:25 WBC (3.8-10.6) k/uL RBC (3.80-5.40) m/uL Hgb (11.4-16.0) gm/dL Hct (34.0-46.0) % MCV (80.0-100.0) fL MCH (25.0-35.0) pg MCHC (31.0-37.0) g/dL RDW (11.5-15.5) % Plt Count (150-450) k/uL Neutrophils % % Lymphocytes % % Monocytes % % Eosinophils % % Basophils % % Neutrophils # (1.3-7.7) k/uL Lymphocytes # (1.0-4.8) k/uL Monocytes # (0-1.0) k/uL Eosinophils # (0-0.7) k/uL Basophils # (0-0.2) k/uL Sodium (137-145) mmol/L Potassium (3.5-5.1) mmol/L Chloride (98-107) mmol/L Carbon Dioxide (22-30) mmol/L Anion Gap mmol/L BUN (7-17) mg/dL Creatinine (0.52-1.04) mg/dL Est GFR (CKD-EPI)AfAm (>60 ml/min/1.73 sqM) Est GFR (CKD-EPI)NonAf (>60 ml/min/1.73 sqM) Glucose (74-99) mg/dL Plasma Lactic Acid Amilcar (0.7-2.0) mmol/L Calcium (8.4-10.2) mg/dL Total Bilirubin (0.2-1.3) mg/dL AST (14-36) U/L ALT (9-52) U/L Alkaline Phosphatase (38-126) U/L Total Protein (6.3-8.2) g/dL Albumin (3.5-5.0) g/dL Lipase (23-300) U/L Urine Color Yellow Urine Appearance Clear (Clear) Urine pH 6.5 (5.0-8.0) Ur Specific [place] 1.007 (1.001-1.035) Urine Protein Negative (Negative) Urine Glucose (UA) Negative (Negative) Urine Ketones Trace H (Negative) Urine Blood Negative (Negative) Urine Nitrite Negative (Negative) Urine Bilirubin Negative (Negative) Urine Urobilinogen <2.0 (<2.0) mg/dL Ur Leukocyte Esterase Moderate H (Negative) Urine WBC 5 (0-5) /hpf Ur Squamous Epith Cells 2 (0-4) /hpf Urine Bacteria Rare H (None) /hpf Urine Mucus Rare H (None) /hpf Disposition Clinical Impression: Abdominal pain, Anxiety reaction Disposition: HOME SELF-CARE Condition: Good Instructions: Abdominal Pain (ED) Prescriptions: HYDROcodone/APAP 5-325MG [[place] 5-325] 1 tab PO Q6HR PRN 3 Days #12 tab PRN Reason: Severe Pain Is patient prescribed a controlled substance at d/c from ED?: No Referrals: Rachel Monqiue DO [Primary Care Provider] - 1-2 days Mario Mckinney MD [STAFF PHYSICIAN] - 1-2 days Time of Disposition: 14:38
[2018-10-01 12:18] LABS: Basophils % (A) 0 %; Eosinophils # (A) 0.3 k/uL (0-0.7); Eosinophils % (A) 4 %; HCT 36.7 % (34.0-46.0); HGB 11.6 gm/dL (11.4-16.0); Lymphocytes # (A) 1.2 k/uL (1.0-4.8); Lymphocytes % (A) 17 %; MCH 27.9 pg (25.0-35.0); MCHC 31.8 g/dL (31.0-37.0); MCV 87.9 fL (80.0-100.0); Mean Platelet Volume 6.7; Monocytes # (A) 0.3 k/uL (0-1.0); Monocytes % (A) 4 %; Neutrophils % (A) 73 %; Platelet Count 236 k/uL (150-450); RBC 4.17 m/uL (3.80-5.40); RDW 14.9 % (11.5-15.5); WBC 6.9 k/uL (3.8-10.6)
[2018-10-01 12:29] LABS: ALT 35 U/L (9-52); AST 26 U/L (14-36); Albumin 3.3 g/dL (3.5-5.0); Alkaline Phosphatase 107 U/L (38-126); Anion Gap 5 mmol/L; Blood Urea Nitrogen 16 mg/dL (7-17); Calcium 8.8 mg/dL (8.4-10.2); Carbon Dioxide 26 mmol/L (22-30); Chloride 109 mmol/L (98-107); Glucose 88 mg/dL (74-99); Lipase 29 U/L (23-300); Potassium 3.6 mmol/L (3.5-5.1); Sodium 140 mmol/L (137-145); Total Bilirubin 0.6 mg/dL (0.2-1.3); Total Protein 6.2 g/dL (6.3-8.2)
--- NOTE | 2018-10-01 12:58 | XR ---
EXAMINATION TYPE: XR KUB DATE OF EXAM: 10/01/2018 COMPARISON: 12/10/2013 INDICATION: Increased abdominal pain and nausea for 3 days, postop hernia 1 week prior TECHNIQUE: Single view abdomen frontal projection FINDINGS: There is a normal bowel gas pattern. There is within the colon. Surgical sutures in the upper abdomen . No suspicious air-fluid levels or differential air-fluid levels are evident. Psoas margins are normal. No organomegaly is present. IMPRESSION: 1. Unremarkable Abdomen
[2018-10-01 14:40] LABS: Appearance,Urine Clear (Clear); Bacteria,Urine Rare /hpf; Bilirubin,Urine Negative (Negative); Blood,Urine Negative (Negative); Color,Urine Yellow; Glucose,Urine (UA) Negative (Negative); Ketones,Urine Trace (Negative); Leukocyte Esterase,Urine Moderate (Negative); Mucus,Urine Rare /hpf; Nitrite,Urine Negative (Negative); PH, Urine 6.5 (5.0-8.0); Protein,Urine Negative (Negative); Specific Gravity,Urine 1.007 (1.001-1.035); Squamous Epithelial Cell,Urine 2 /hpf (0-4); Urobilinogen,Urine <2.0 mg/dL (<2.0); WBC,Urine 5 /hpf (0-5)
[2018-10-01] MEDS ORDERED: ALPRAZolam 1 MG TAB PO STA (14:45)
[2018-10-01] MEDS ORDERED: LORazepam 2 MG/ML INJ IV STA (15:08)
== END 2018-10-01 15:15 | disposition home or self-care (01) ==
LOC: EC 11:18
DX: F41.1 Generalized anxiety disorder (principal); R10.9 Unspecified abdominal pain; G89.18 Other acute postprocedural pain; J45.909 Unspecified asthma, uncomplicated; E11.649 Type 2 diabetes mellitus with hypoglycemia without coma; K21.9 Gastro-esophageal reflux disease without esophagitis; E78.5 Hyperlipidemia, unspecified; I10 Essential (primary) hypertension; E07.9 Disorder of thyroid, unspecified; F32.9 Major depressive disorder, single episode, unspecified; Z87.19 Personal history of other diseases of the digestive system; Z86.73 Personal history of transient ischemic attack (TIA), and cerebral infarction without residual deficits; Z98.84 Bariatric surgery status; Z90.49 Acquired absence of other specified parts of digestive tract; Z98.890 Other specified postprocedural states; Z90.710 Acquired absence of both cervix and uterus; Z96.653 Presence of artificial knee joint, bilateral; Z79.51 Long term (current) use of inhaled steroids; Z79.82 Long term (current) use of aspirin; Z79.4 Long term (current) use of insulin; Z79.899 Other long term (current) drug therapy; Z91.018 Allergy to other foods; Z91.013 Allergy to seafood; Z91.041 Radiographic dye allergy status; Z91.048 Other nonmedicinal substance allergy status; Z91.040 Latex allergy status; Z88.0 Allergy status to penicillin; Z88.8 Allergy status to other drugs, medicaments and biological substances; Z88.5 Allergy status to narcotic agent; Z53.8 Procedure and treatment not carried out for other reasons
CPT/HCPCS: 36415; 80053; 83605; 83690; 85025; 81001; 74018; 99284; 96374; J2060

== ENCOUNTER → 2020-06-03 | Outpatient (CLI) | payer MEDICARE ==
[2020-06-03 10:54] LABS: African American GFR (CKD) >90 (>60 ml/min/1.73 sqM); Blood Urea Nitrogen 19 mg/dL (7-17); Non-African American GFR(CKD) 87 (>60 ml/min/1.73 sqM)
--- NOTE | 2020-06-03 12:01 | CT ---
EXAMINATION TYPE: CT abdomen wo/w con DATE OF EXAM: 06/03/2020 HISTORY: Upper Abdominal discomfort, pancreatic mass per order. CT DLP: 1862.8mGycm Automated Exposure Control for Dose Reduction was Utilized. CONTRAST: CT scan of the abdomen is performed with oral water and without and with IV Contrast, patient injecte d with 100 mL of Isovue 300. Pancreatic protocol. COMPARISON: None. FINDINGS: LUNG BASES: Mild scattered bibasilar linear scarring. Small calcified left infrahilar lymph nodes. Mi ld/moderate calcification at level of mitral valve. LIVER/GB: Cholecystectomy clips. PANCREAS: Pancreas is overall normal in size. There is homogeneous postcontrast enhancement. There is no surrounding fat stranding. There is no concerning solid or cystic pancreatic mass. No gland calci fications are present. Pancreatic seen best near pancreatic head perhaps minimally dilated at this le addi up to 4 mm. Remainder of duct not visualized or not dilated. SPLEEN: Scattered calcifications throughout the spleen consistent with product of old granulomatous d isease. ADRENALS: No significant abnormality is seen. KIDNEYS: No renal calculi and noncontrast images. Postcontrast images show no concerning solid or cys tic renal mass or hydronephrosis. BOWEL: Surgical changes from gastric weight loss procedure are seen in the epigastric region. Poor di stention of bowel loops. No suspicious small or large bowel dilatation. LYMPH NODES: No greater than 1cm abdominal or pelvic lymph nodes are appreciated. Mild haziness or fa t stranding in the left mid abdominal mesentery with some prominent but subcentimeter lymph nodes OSSEOUS STRUCTURES: Underlying scoliosis with fairly moderate multilevel spurring and disc space narr owing rotatory thoracolumbar spine. OTHER: No significant additional abnormality is seen. IMPRESSION: 1. No suspicious pancreatic solid or cystic mass. 2. Fadia mesentery appearance could reflect product of mesenteric panniculitis. Other etiologies not excluded. Correlate clinically.
== END | disposition home or self-care (01) ==
LOC: RADCTMAIN 10:13
PROVIDERS: ATTEND Family Medicine
DX: K86.9 Disease of pancreas, unspecified (principal); Z91.041 Radiographic dye allergy status
CPT/HCPCS: 82565; 84520; 74170; 36415; Q9967

== ENCOUNTER 2021-09-07 18:33 | Emergency (ER) | payer MEDICARE ==
[2021-09-07 20:02] VITALS: BP 157/78; PULSE 86; RESP 20; TEMP 98.4
--- NOTE | 2021-09-07 20:35 | XR ---
EXAMINATION TYPE: XR chest 2V DATE OF EXAM: 09/07/2021 COMPARISON: 12/23/2016 INDICATION: Shortness of breath TECHNIQUE: Single frontal view of the chest is obtained. FINDINGS: The heart size is normal. The pulmonary vasculature is prominent. Mild diffuse increased lung markings are present. Findings are nonspecific. Correlate for atypical pn eumonia. IMPRESSION: 1. Diffuse scattered increased lung markings are nonspecific but can be compatible with atypical pneu monia.
== END 2021-09-07 21:25 | disposition left against medical advice (07) ==
LOC: EC 18:33
DX: Z53.21 Procedure and treatment not carried out due to patient leaving prior to being seen by health care provider (principal); Z20.822 Contact with and (suspected) exposure to COVID-19
CPT/HCPCS: 71046; 99499

== ENCOUNTER 2021-09-08 12:36 | Inpatient (IN) | payer MEDICARE ==
[2021-09-08] MEDS ORDERED: ALBUTEROL HFA INHALER INHALATION STA (13:00)
[2021-09-08] MEDS ORDERED: ALBUTEROL HFA INHALER INHALATION PRN (13:00)
--- NOTE | 2021-09-08 13:08 | ED ---
General Adult HPI - General Chief complaint: Shortness of Breath Stated complaint: covid +, SOB Time Seen by Provider: 09/08/21 12:51 Source: patient, RN notes reviewed Mode of arrival: ambulatory Limitations: no limitations - History of Present Illness Initial comments: Patient is a pleasant 76-year-old female presenting to the emergency Department with complaints of shortness of breath. Onset of symptoms was several right days ago. Patient was in the emergency department yesterday and did receive monoclonal antibodies. Dyspnea has worsened since that time. Patient does have cough with brown sputum. Patient denies fevers. Patient has fatigue. Patient has had nausea and decreased appetite. Some loose stools. Patient has loss of taste and smell. Patient tested positive with Dr. Dodge on August 31. - Related Data Home Medications Medication Instructions Recorded Confirmed Pantoprazole Sodium [Protonix] 40 mg PO DAILY 03/20/14 09/24/18 Enalapril [Vasotec] 10 mg PO DAILY 06/23/14 09/24/18 Fluticasone/Salmeterol [Advair 1 puff INHALATION RT-BID 06/23/14 09/24/18 250-50 Diskus] Furosemide [Lasix] 20 mg PO DAILY 06/23/14 09/24/18 rOPINIRole HCL [Requip] 8 mg PO DAILY 06/23/14 09/24/18 Aspirin EC [Ecotrin Low Dose] 81 mg PO DAILY 12/23/16 09/24/18 Levothyroxine Sodium [Synthroid] 75 mcg PO DAILY 12/23/16 09/24/18 Spironolactone 50 mg PO DAILY 12/23/16 09/24/18 Venlafaxine HCl [Effexor XR] 75 mg PO TID 12/23/16 09/24/18 busPIRone HCl [Buspar] 10 mg PO BID PRN 12/23/16 09/24/18 Insulin Aspart (For Pump) [NovoLOG 0.01 unit SQ-PUMP CONTINUOUS 09/24/18 09/24/18 (For Pump)] Previous Rx's Medication Instructions Recorded Atorvastatin Calcium [Lipitor] 20 mg PO HS #30 tab 12/25/16 Docusate [Colace] 100 mg PO BID #20 capsule 09/24/18 HYDROcodone/APAP 7.5-325MG [[place] 1 tab PO Q4H PRN 3 Days #18 tab 12/18/18 7.5-325] HYDROcodone/APAP 5-325MG [[place] 1 tab PO Q6HR PRN 3 Days #12 tab 10/01/18 5-325] Allergies Allergy/AdvReac Type Severity Reaction Status Date / Time banana [Banana] Allergy Rash/Hives, Verified 09/08/21 12:43 throat symptoms Fish Containing Products Allergy Swelling Verified 09/08/21 12:43 Iodinated Contrast Media Allergy Anaphylaxis Verified 09/08/21 12:43 [Iodinated Contrast Media - IV Dye] iodine Allergy Anaphylaxis Verified 09/08/21 12:43 Latex, Natural Rubber Allergy Swelling Verified 09/08/21 12:43 Penicillins Allergy Rash/Hives Verified 09/08/21 12:43 prochlorperazine edisylate Allergy Rapid Verified 09/08/21 12:43 [From Compazine] Heart Rate prochlorperazine maleate Allergy Rapid Verified 09/08/21 12:43 [From Compazine] Heart Rate codeine AdvReac Abdominal Verified 09/08/21 12:43 Pain hydromorphone HCl AdvReac confused Verified 09/08/21 12:43 [From Dilaudid] meperidine HCl [From Demerol] AdvReac Hallucinati Verified 09/08/21 12:43 ons Review of Systems ROS Statement: Those systems with pertinent positive or pertinent negative responses have been documented in the HPI. ROS Other: All systems not noted in ROS Statement are negative. Constitutional: Denies: fever Eyes: Denies: eye pain ENT: Denies: ear pain Respiratory: Reports: cough, dyspnea Cardiovascular: Denies: chest pain Endocrine: Reports: fatigue Gastrointestinal: Reports: nausea. Denies: abdominal pain Genitourinary: Denies: dysuria Musculoskeletal: Denies: back pain Skin: Denies: rash Neurological: Denies: weakness Past Medical History Past Medical History: Asthma, Chest Pain / Angina, CVA/TIA, Diabetes Mellitus, Fibromyalgia, GERD/Reflux, Hyperlipidemia, Hypertension, Memory Impairment, Osteoarthritis (OA), Pneumonia, Rheumatoid Arthritis (RA), Skin Disorder, Thyroid Disorder Additional Past Medical History / Comment(s): Hx. of headaches, varicose veins, hx. of occ palpitations, hiatal hernia, hx ulcer, anemia. History of Any Multi-Drug Resistant Organisms: None Reported Past Surgical History: Bariatric Surgery, Cholecystectomy, Hernia Repair, Hysterectomy, Joint Replacement, Orthopedic Surgery Additional Past Surgical History / Comment(s): Gastric sleeve removed, and LAP BAND REMOVED ON 12/09/2013. isaiah knee replacement, isaiah ankle surgery, right shoulder. Past Anesthesia/Blood Transfusion Reactions: No Reported Reaction Past Psychological History: Anxiety, Depression Smoking Status: Never smoker Past Alcohol Use History: None Reported Past Drug Use History: Unable to Obtain - Past Family History Mother Family Medical History: Cancer Additional Family Medical History / Comment(s): Lung Father Family Medical History: Cancer Additional Family Medical History / Comment(s): Colon Sister(s) Family Medical History: Cancer Additional Family Medical History / Comment(s): Adrenal General Exam Limitations: no limitations General appearance: alert, in no apparent distress Head exam: Present: normocephalic Eye exam: Present: normal appearance Neck exam: Present: normal inspection Respiratory exam: Present: normal lung sounds bilaterally, rhonchi (With cough) Cardiovascular Exam: Present: regular rate, normal rhythm GI/Abdominal exam: Present: soft. Absent: tenderness Extremities exam: Present: normal inspection Neurological exam: Present: alert Psychiatric exam: Present: normal affect, normal mood Skin exam: Present: normal color Course Vital Signs 09/08/21 09/08/21 12:41 14:14 Temperature 98.9 F 98.5 F Pulse Rate 85 68 Respiratory 24 19 Rate Blood Pressure 163/82 150/79 O2 Sat by Pulse 85 L Oximetry EKG Findings - EKG Comments: EKG Findings:: Normal sinus rhythm rate 69. MO 126. QRS 74. QT 442. QTC or 73. Left axis. LVH criteria. No acute ST change. Medical Decision Making - Medical Decision Making Patient reevaluated and updated. Case discussed with Dr. Russell, who will admit his patient and request pulmonary consult. - Lab Data Result diagrams: 09/08/21 13:11 Lab Results 09/08/21 09/08/21 09/08/21 Range/Units 13:11 13:11 13:11 WBC 10.2 (3.8-10.6) k/uL RBC 4.63 (3.80-5.40) m/uL Hgb 13.4 (11.4-16.0) gm/dL Hct 40.6 (34.0-46.0) % MCV 87.7 (80.0-100.0) fL MCH 29.0 (25.0-35.0) pg MCHC 33.1 (31.0-37.0) g/dL RDW 14.5 (11.5-15.5) % Plt Count 218 (150-450) k/uL MPV 8.4 Neutrophils % 85 % Lymphocytes % 11 % Monocytes % 3 % Eosinophils % 1 % Basophils % 0 % Neutrophils # 8.6 H (1.3-7.7) k/uL Lymphocytes # 1.1 (1.0-4.8) k/uL Monocytes # 0.3 (0-1.0) k/uL Eosinophils # 0.1 (0-0.7) k/uL Basophils # 0.0 (0-0.2) k/uL PT 11.0 (9.0-12.0) sec INR 1.0 (<1.2) APTT 22.1 (22.0-30.0) sec Plasma Lactic Acid Amilcar 1.7 (0.7-2.0) mmol/L - Radiology Data Radiology results: image reviewed (Chest x-ray shows interstitial pneumonia and COPD) Disposition Clinical Impression: COVID-19, Hypoxia Disposition: ADMITTED IP TO THIS HOSP Is patient prescribed a controlled substance at d/c from ED?: No Referrals: Thomas Monique MD [Primary Care Provider] - 1-2 days Decision Time: 14:15
[2021-09-08] MEDS: DEXAMETHASONE SOD PHOSPHATE 10 MG/ML 1 ML VIAL IVP SCH (13:25)
--- NOTE | 2021-09-08 13:43 | XR ---
EXAMINATION TYPE: XR chest 1V portable DATE OF EXAM: 09/08/2021 COMPARISON: 09/07/2021 HISTORY: Shortness of breath TECHNIQUE: Single frontal view of the chest is obtained. FINDINGS: Diffuse interstitial pattern with areas of subsegmental consolidation. Heart is prominent. Underlying COPD suspected and there is postsurgical change involving the right shoulder and diffuse osteopenia. No pneumothorax. IMPRESSION: 1. Correlate for interstitial pneumonia stable from prior exam. 2. Correlate for COPD.
[2021-09-08 13:51] LABS: Basophils % (A) 0 %; Eosinophils # (A) 0.1 k/uL (0-0.7); Eosinophils % (A) 1 %; HCT 40.6 % (34.0-46.0); HGB 13.4 gm/dL (11.4-16.0); Lymphocytes # (A) 1.1 k/uL (1.0-4.8); Lymphocytes % (A) 11 %; MCHC 33.1 g/dL (31.0-37.0); MCV 87.7 fL (80.0-100.0); Mean Platelet Volume 8.4; Monocytes # (A) 0.3 k/uL (0-1.0); Monocytes % (A) 3 %; Neutrophils # (A) 8.6 k/uL (1.3-7.7); Neutrophils % (A) 85 %; Platelet Count 218 k/uL (150-450); RBC 4.63 m/uL (3.80-5.40); RDW 14.5 % (11.5-15.5); WBC 10.2 k/uL (3.8-10.6)
[2021-09-08 14:00] LABS: Partial Thromboplastin Time 22.1 sec (22.0-30.0)
[2021-09-08 14:06] LABS: Albumin 3.5 g/dL (3.5-5.0); Calcium 8.6 mg/dL (8.4-10.2); Magnesium 2.1 mg/dL (1.6-2.3); Potassium 3.9 mmol/L (3.5-5.1); Total Bilirubin 0.7 mg/dL (0.2-1.3); Total Protein 6.6 g/dL (6.3-8.2)
[2021-09-08] MEDS ORDERED: NALOXONE 0.4 MG/ML 1 ML VIAL IV PRN (14:20)
[2021-09-08] MEDS ORDERED: ACETAMINOPHEN TAB 325 MG TAB PO PRN (14:20)
[2021-09-08] MEDS ORDERED: ONDANSETRON 4 MG/2 ML VIAL IVP PRN (14:20)
[2021-09-08 14:24] LABS: C Reactive Protein 19.9 mg/dL (<1.0)
[2021-09-08] MEDS: ALBUTEROL HFA INHALER INHALATION SCH ×2 (14:40→20:44)
[2021-09-08] MEDS: ZINC SULFATE 220 MG CAP PO SCH (16:16)
[2021-09-08] MEDS: SODIUM CHLORIDE 0.9% 1,000 ML IV SCH (16:16)
[2021-09-08] MEDS: CHOLECALCIFEROL 25 MCG (1000 IU) TABLET PO SCH (16:16)
--- NOTE | 2021-09-08 16:37 | P.CNPUL ---
History of Present Illness Consult date: 09/08/21 Reason for consult: pneumonia History of present illness: 76-year-old female patient presented to the hospital because of worsening shortness of breath and she was diagnosed having COVID 19 related pneumonia with respiratory failure. The patient started getting symptomatically on 08/31/2008 which is essentially 8 days ago. The patient was in the emergency department yesterday and she was seen and she was given multiple antibiotics and she was discharged home. Her shortness of breath progressed and for that reason the patient came into the hospital. She is having increased cough. She has also increased nausea and diminished appetite. She has also lost her taste and smell. For now, the patient is on oxygen and she is on 4 L per minute nasal cannula. She has multiple medical problems and comorbidities. Inflammatory markers shows a LDH level of 1150 with a CRP of 19.9, normal renal function, normal electrolytes, d-dimer is pending, coagulation profile is within normal, white cell count is at 10.2 with hemoglobin 13.4. The chest x-ray showed bilateral pulmonary infiltrates mainly perihilar and lower lobes or so in the peripheries. She also has a right shoulder replacement. Comorbid conditions include hypertension, hyperlipidemia, diabetes mellitus, fibromyalgia, obesity with a previous gastric lap band and subsequent sleeve, osteoarthritis, rheumatoid arthritis, hypothyroidism, and previous history of CVA. Review of Systems Constitutional: Reports fatigue, Reports fever, Reports poor appetite, Reports weight gain Eyes: denies as per HPI, denies blurred vision, denies bulging eye, denies decreased vision, denies diplopia, denies discharge, denies dry eye, denies irritation, denies itching, denies pain, denies photophobia, denies loss of peripheral vision, denies loss of vision, denies tunnel vision/blind spots Ears: deny: decreased hearing, ear discharge, earache, tinnitus Ears, nose, mouth and throat: Reports as per HPI Breasts: absent: as per HPI, change in shape, gynecomastia, masses, nipple discharge, pain, skin changes, swelling Cardiovascular: Reports decreased exercise tolerance, Reports dyspnea on exertion, Reports leg edema, Reports shortness of breath Respiratory: Reports cough, Reports dyspnea Gastrointestinal: Reports loss of appetite, Reports nausea Genitourinary: Reports as per HPI Menstruation: Reports as per HPI Musculoskeletal: Reports as per HPI Musculoskeletal: bilateral: ankle swelling, absent: ankle pain, ankle stiffness Integumentary: Reports as per HPI Neurological: Reports as per HPI Psychiatric: Reports as per HPI Endocrine: Reports as per HPI Hematologic/Lymphatic: Reports as per HPI Allergic/Immunologic: Reports as per HPI Past Medical History Past Medical History: Asthma, Chest Pain / Angina, CVA/TIA, Diabetes Mellitus, Fibromyalgia, GERD/Reflux, Hyperlipidemia, Hypertension, Memory Impairment, Osteoarthritis (OA), Pneumonia, Rheumatoid Arthritis (RA), Skin Disorder, Thyroid Disorder Additional Past Medical History / Comment(s): Hx. of headaches, varicose veins, hx. of occ palpitations, hiatal hernia, hx ulcer, anemia., chronic venous insufficiency History of Any Multi-Drug Resistant Organisms: None Reported Past Surgical History: Bariatric Surgery, Cholecystectomy, Hernia Repair, Hysterectomy, Joint Replacement, Orthopedic Surgery Additional Past Surgical History / Comment(s): Gastric sleeve removed, and LAP BAND REMOVED ON 12/09/2013. isaiah knee replacement, isaiah ankle surgery, right shoulder. Past Anesthesia/Blood Transfusion Reactions: No Reported Reaction Past Psychological History: Anxiety, Depression Smoking Status: Never smoker Past Alcohol Use History: None Reported Past Drug Use History: Unable to Obtain - Past Family History Mother Family Medical History: Cancer Additional Family Medical History / Comment(s): Lung Father Family Medical History: Cancer Additional Family Medical History / Comment(s): Colon Sister(s) Family Medical History: Cancer Additional Family Medical History / Comment(s): Adrenal Medications and Allergies Home Medications Medication Instructions Recorded Confirmed Type Insulin Aspart (For Pump) [NovoLOG 0.01 unit SQ-PUMP CONTINUOUS 09/24/18 09/08/21 History (For Pump)] Albuterol Inhaler [Ventolin Hfa 1 puff INHALATION RT-Q4H PRN 09/08/21 09/08/21 History Inhaler] Cetirizine HCl [Zyrtec] 10 mg PO DAILY 09/08/21 09/08/21 History EPINEPHrine (Auto Inject) [Epipen] 0.3 mg IM ONCE PRN 09/08/21 09/08/21 History Fluticasone Propion/Salmeterol 1 puff INHALATION RT-BID 09/08/21 09/08/21 History [Wixela 250-50 Inhub] LORazepam [Ativan] 0.5 mg PO DAILY PRN 09/08/21 09/08/21 History Levothyroxine Sodium [Synthroid] 112 mcg PO DAILY 09/08/21 09/08/21 History Nitroglycerin Sl Tabs [Nitrostat] 0.4 mg SL Q5M PRN 09/08/21 09/08/21 History Pramipexole Di-HCl [Mirapex] 1.5 mg PO HS 09/08/21 09/08/21 History SILVER sulfADIAZINE Cream 1 applic TOPICAL BID 09/08/21 09/08/21 History [Silvadene 1% Cream] Triamcinolone 0.1% Cream [Kenalog 1 applic TOPICAL BID 09/08/21 09/08/21 History 0.1% Cream] Venlafaxine HCl [Effexor] 75 mg PO DAILY 09/08/21 09/08/21 History busPIRone HCL [Buspar] 7.5 mg PO BID 09/08/21 09/08/21 History lisinopriL 40 mg PO DAILY 09/08/21 09/08/21 History Allergies Allergy/AdvReac Type Severity Reaction Status Date / Time banana [Banana] Allergy Rash/Hives, Verified 09/08/21 14:50 throat symptoms Fish Containing Products Allergy Swelling Verified 09/08/21 14:50 Iodinated Contrast Media Allergy Anaphylaxis Verified 09/08/21 14:50 [Iodinated Contrast Media - IV Dye] iodine Allergy Anaphylaxis Verified 09/08/21 14:50 Latex, Natural Rubber Allergy Swelling Verified 09/08/21 14:50 Penicillins Allergy Rash/Hives Verified 09/08/21 14:50 prochlorperazine edisylate Allergy Rapid Verified 09/08/21 14:50 [From Compazine] Heart Rate prochlorperazine maleate Allergy Rapid Verified 09/08/21 14:50 [From Compazine] Heart Rate codeine AdvReac Abdominal Verified 09/08/21 14:50 Pain hydromorphone HCl AdvReac confused Verified 09/08/21 14:50 [From Dilaudid] meperidine HCl [From Demerol] AdvReac Hallucinati Verified 09/08/21 14:50 ons Physical Exam Vitals: Vital Signs Temp Pulse Resp BP Pulse Ox 09/08/21 16:14 18 94 L 09/08/21 14:14 98.5 F 68 19 150/79 09/08/21 12:41 98.9 F 85 24 163/82 85 L Intake and Output 09/08/21 09/08/21 09/08/21 06:59 14:59 22:59 Other: Weight 85.729 kg General appearance: alert, in no apparent distress, in mild degree of respiratory distress and the patient has a BMI of 34.6 Head exam:Head exam was generally normal. There was no scleral icterus or corneal arcus. Mucous membranes were moist. Eye exam: Present: normal appearance Neck exam: Present: normal inspection Respiratory exam: Present: normal lung sounds bilaterally, crackles in the mid and lower lung dao bilaterally Cardiovascular Exam: Present: regular rate, normal rhythm GI/Abdominal exam: Present: soft. Absent: tenderness Extremities exam: Present: normal inspection, the patient has chronic edema and chronic venous insufficiency in the lower extremities Neurological exam: Present: alert, generalized motor weakness in all 4 extremities without any focal neurological deficits Psychiatric exam: Present: normal affect, normal mood Skin exam: Present: normal color Results - Laboratory Findings CBC and BMP: 09/08/21 13:11 09/08/21 13:11 PT/INR, D-dimer PT 11.0 sec (9.0-12.0) 09/08/21 13:11 INR 1.0 (<1.2) 09/08/21 13:11 Abnormal lab findings: Abnormal Labs 09/08/21 09/08/21 13:11 13:11 Neutrophils # 8.6 H Sodium 134 L Carbon Dioxide 20 L BUN 31 H Glucose 368 H Lactate Dehydrogenase 1152 H C-Reactive Protein 19.9 H - Diagnostic Findings Chest x-ray: image reviewed Assessment and Plan Plan: 1 acute COVID 19 related pneumonia. The patient was symptomatic approximately 8 days ago. The patient came into the emergency and the patient received monoclonal antibodies. The patient is non-vaccinated. She is having shortness of breath and generalized weakness along with other constitutional symptoms such as diminished appetite and the patient has not been eating. The patient is coming in also for hypoxic respiratory failure 2 acute hypoxic respiratory failure currently on oxygen at 4 L 3 shortness of breath secondary to above 4 chronic bronchial asthma maintained on Wixela Inhub on outpatient basis 5 history of obesity and the patient undergone previous bariatric surgery current BMI 34.6 6 history of rheumatoid arthritis, mild and not take any form of immunosuppressive agents 7 history of diabetes mellitus maintained on insulin pump on outpatient basis 8 previous history of CVA, 9 chronic venous insufficiency 10 fibromyalgia 11 hypothyroidism 12 history of degenerative arthritis and the patient has undergone a right shoulder replacement Plan Overall respiratory status is stable for now. The patient will be given oxygen and currently she is on 4 L. We'll start the patient on Decadron 6 mg IV every 24 hours and monitor sugars We'll check inflammatory markers including d-dimer and the rest of the markers including pro-calcitonin The patient is out of the window for Remdesivir We'll start the patient home medication and monitor the blood sugars and put on a sliding scale coverage Lovenox 40 mg subcu for DVT prophylaxis Replaced Wixela Inhub with Symbicort 2 puffs twice a day as maintenance for COPD along with albuterol HFA 2 puffs 4 times a day Gentle hydration with IV fluids with normal saline at the rate of 50 mL an hour We'll continue to follow this patient make further recommendations based on her progress.
[2021-09-08] MEDS: INSULIN ASPART (NovoLOG) 100 UNIT/ML VIAL SQ SCH ×2 (19:44→21:42)
[2021-09-08] MEDS: SYMBICORT 160-4.5 MCG INHALER INHALATION SCH (20:45)
[2021-09-08] MEDS ORDERED: PRAMIPEXOLE 0.5 MG TAB PO SCH (21:00)
[2021-09-08 21:12] LABS: Glucose,Whole Blood 397 mg/dL (75-99)
[2021-09-08] MEDS: ASCORBIC ACID 500 MG TAB PO SCH (21:42)
[2021-09-08] MEDS: busPIRone HCl 5 MG TAB PO SCH (21:42)
[2021-09-08] MEDS: FAMOTIDINE 20 MG TAB PO SCH (21:43)
[2021-09-09] MEDS ORDERED: PRAMIPEXOLE 1 MG TAB PO SCH (01:10)
[2021-09-09] MEDS: LORazepam 0.5 MG TAB PO PRN (01:50)
[2021-09-09] MEDS: PRAMIPEXOLE 1 MG TAB PO SCH ×2 (01:51→21:26)
[2021-09-09] MEDS: ALBUTEROL HFA INHALER INHALATION SCH ×4 (03:00→20:55)
[2021-09-09] MEDS: SODIUM CHLORIDE 0.9% 1,000 ML IV SCH ×2 (06:16→16:35)
[2021-09-09 07:30] LABS: Glucose,Whole Blood 452 mg/dL (75-99)
[2021-09-09] MEDS: ZINC SULFATE 220 MG CAP PO SCH (08:04)
[2021-09-09] MEDS: CHOLECALCIFEROL 25 MCG (1000 IU) TABLET PO SCH (08:04)
[2021-09-09] MEDS: FAMOTIDINE 20 MG TAB PO SCH (08:04)
[2021-09-09] MEDS: LEVOTHYROXINE 112 MCG TAB PO SCH (08:04)
[2021-09-09] MEDS: ASCORBIC ACID 500 MG TAB PO SCH ×2 (08:05→21:26)
[2021-09-09] MEDS: lisinopriL 20 MG TAB PO SCH (08:05)
[2021-09-09] MEDS: busPIRone HCl 5 MG TAB PO SCH ×2 (08:05→21:25)
[2021-09-09] MEDS: DEXAMETHASONE SOD PHOSPHATE 10 MG/ML 1 ML VIAL IVP SCH (08:05)
[2021-09-09] MEDS: INSULIN ASPART (NovoLOG) 100 UNIT/ML VIAL SQ SCH ×4 (08:05→21:27)
[2021-09-09] MEDS: LORATADINE 10 MG TAB PO SCH (08:05)
[2021-09-09] MEDS: VENLAFAXINE HCL 75 MG TAB PO SCH (08:08)
[2021-09-09] MEDS: dexAMETHasone 2 MG TAB PO SCH (08:09)
[2021-09-09] MEDS: SYMBICORT 160-4.5 MCG INHALER INHALATION SCH ×2 (08:50→20:55)
[2021-09-09 11:02] LABS: Basophils # (A) 0.02 X 10*3/uL (0.00-0.10); Basophils % (A) 0.3 %; Eosinophils # (A) 0 X 10*3/uL (0.04-0.35); Eosinophils % (A) 0 %; HCT 41.1 % (37.2-46.3); HGB 12.8 g/dL (12.0-15.0); Lymphocytes # (A) 0.74 X 10*3/uL (0.90-5.00); Lymphocytes % (A) 9.5 %; MCHC 31.1 g/dL (32.0-37.0); MCV 89.9 fL (80.0-97.0); Monocytes # (A) 0.27 X 10*3/uL (0.20-1.00); Monocytes % (A) 3.5 %; Neutrophils # (A) 6.74 X 10*3/uL (1.80-7.70); Neutrophils % (A) 86.2 %; Platelet Count 204 X 10*3/uL (140-440); RBC 4.57 X 10*6/uL (4.10-5.20); RDW 15.3 % (11.5-14.5); WBC 7.81 X 10*3/uL (4.50-10.00)
[2021-09-09 11:31] LABS: African American GFR (CKD) 72.3 (60.0-200.0); Albumin 3.4 g/dL (3.8-4.9); Albumin/Globulin Ratio 1.21 (1.60-3.17); Anion Gap 16.9 mmol/L (10.00-18.00); BUN/Creat Ratio 30.21 Ratio (12.00-20.00); Blood Urea Nitrogen 27.1 mg/dL (9.0-27.0); C Reactive Protein 13.9 mg/dL (0.00-0.80); Calcium 8.4 mg/dL (8.7-10.3); Carbon Dioxide 18.5 mmol/L (20.0-27.5); Globulin 2.8 g/dL (1.6-3.3); Non-African American GFR(CKD) 62.4 (60.0-200.0); Potassium 4.1 mmol/L (3.5-5.5); Total Bilirubin 0.4 mg/dL (0.30-1.20); Total Protein 6.3 g/dL (6.2-8.2)
[2021-09-09 11:43] LABS: Glucose,Whole Blood 368 mg/dL (75-99)
--- NOTE | 2021-09-09 13:27 | P.PN ---
Subjective Progress Note Date: 09/09/21 76-year-old female patient presented to the hospital because of worsening shortness of breath and she was diagnosed having COVID 19 related pneumonia with respiratory failure. The patient started getting symptomatically on 08/31/2008 which is essentially 8 days ago. The patient was in the emergency department yesterday and she was seen and she was given multiple antibiotics and she was discharged home. Her shortness of breath progressed and for that reason the patient came into the hospital. She is having increased cough. She has also increased nausea and diminished appetite. She has also lost her taste and smell. For now, the patient is on oxygen and she is on 4 L per minute nasal cannula. She has multiple medical problems and comorbidities. Inflammatory markers shows a LDH level of 1150 with a CRP of 19.9, normal renal function, normal electrolytes, d-dimer is pending, coagulation profile is within normal, white cell count is at 10.2 with hemoglobin 13.4. The chest x-ray showed bilateral pulmonary infiltrates mainly perihilar and lower lobes or so in the peripheries. She also has a right shoulder replacement. Comorbid conditions include hypertension, hyperlipidemia, diabetes mellitus, fibromyalgia, obesity with a previous gastric lap band and subsequent sleeve, osteoarthritis, rheumatoid arthritis, hypothyroidism, and previous history of CVA. On today's evaluation of 09/09/2021, the patient is being seen for a follow-up. The patient was seen yesterday in consultation the patient was on 40s about 2 by nasal cannula. Since yesterday, flexion requirements have increased and the patient is currently on 10 L of oxygen by nasal cannula. She is afebrile. She is hemodynamically stable. The patient as stated has multiple medical problems and comorbidities. She has hypertension, hyperlipidemia, diabetes mellitus, fibromyalgia, obesity and carries a BMI of 34.6 and the patient has undergone previous gastric sleeve, RA, hypothyroidism. History of CVA. On today's evaluation, the white cell count is at 7.8 with hemoglobin 12.8, d-dimer is at 1.38, LDH level is 411 with a CRP level of 13.9, serum bicarbonate of 18, anion gap is 16, creatinine 0.9, and the liver function tests are essentially within normal limits. The patient is being treated currently with Decadron 6 mg by mouth daily. The patient is also on Symbicort regarding her COPD and she is also on NovoLog sliding scale insulin coverage. Objective - Vital Signs Vital signs: Vital Signs Temp 98.4 F 09/09/21 09:33 Pulse 84 09/09/21 09:33 Resp 18 09/09/21 09:33 BP 168/78 09/09/21 09:33 Pulse Ox 91 L 09/09/21 09:37 Intake & Output 09/08/21 09/09/21 09/09/21 18:59 06:59 18:59 Weight 85.729 kg 85.729 kg Other: # Voids 2 - Exam General appearance: alert, in no apparent distress, in mild degree of respiratory distress and the patient has a BMI of 34.6 Head exam:Head exam was generally normal. There was no scleral icterus or corneal arcus. Mucous membranes were moist. Eye exam: Present: normal appearance Neck exam: Present: normal inspection Respiratory exam: Present: normal lung sounds bilaterally, crackles in the mid and lower lung dao bilaterally Cardiovascular Exam: Present: regular rate, normal rhythm GI/Abdominal exam: Present: soft. Absent: tenderness Extremities exam: Present: normal inspection, the patient has chronic edema and chronic venous insufficiency in the lower extremities Neurological exam: Present: alert, generalized motor weakness in all 4 extremities without any focal neurological deficits Psychiatric exam: Present: normal affect, normal mood Skin exam: Present: normal color - Labs CBC & Chem 7: 09/09/21 07:39 09/09/21 07:39 Labs: Abnormal Lab Results - Last 24 Hours (Table) 09/08/21 09/08/21 09/08/21 Range/Units 13:11 13:11 13:11 MCHC (32.0-37.0) g/dL RDW (11.5-14.5) % Neutrophils # 8.6 H (1.3-7.7) k/uL Lymphocytes # (0.90-5.00) X 10*3/uL Eosinophils # (0.04-0.35) X 10*3/uL D-Dimer (<0.60) mg/L FEU Sodium 134 L (137-145) mmol/L Carbon Dioxide 20 L (22-30) mmol/L BUN 31 H (7-17) mg/dL BUN/Creatinine Ratio (12.00-20.00) Ratio Glucose 368 H (74-99) mg/dL POC Glucose (mg/dL) (75-99) mg/dL Calcium (8.7-10.3) mg/dL Ferritin 390.0 H (10.0-291.0) ng/mL Lactate Dehydrogenase 1152 H (313-618) U/L C-Reactive Protein 19.9 H (<1.0) mg/dL Albumin (3.8-4.9) g/dL Albumin/Globulin Ratio (1.60-3.17) g/dL Procalcitonin 0.12 H (0.02-0.09) ng/mL Coronavirus (PCR) (Not Detectd) 09/08/21 09/08/21 09/09/21 Range/Units 16:33 21:08 04:00 MCHC (32.0-37.0) g/dL RDW (11.5-14.5) % Neutrophils # (1.3-7.7) k/uL Lymphocytes # (0.90-5.00) X 10*3/uL Eosinophils # (0.04-0.35) X 10*3/uL D-Dimer 1.24 H (<0.60) mg/L FEU Sodium (137-145) mmol/L Carbon Dioxide (22-30) mmol/L BUN (7-17) mg/dL BUN/Creatinine Ratio (12.00-20.00) Ratio Glucose (74-99) mg/dL POC Glucose (mg/dL) 397 H (75-99) mg/dL Calcium (8.7-10.3) mg/dL Ferritin (10.0-291.0) ng/mL Lactate Dehydrogenase (313-618) U/L C-Reactive Protein (<1.0) mg/dL Albumin (3.8-4.9) g/dL Albumin/Globulin Ratio (1.60-3.17) g/dL Procalcitonin (0.02-0.09) ng/mL Coronavirus (PCR) Detected A (Not Detectd) 09/09/21 09/09/21 09/09/21 Range/Units 07:25 07:39 07:39 MCHC (32.0-37.0) g/dL RDW (11.5-14.5) % Neutrophils # (1.3-7.7) k/uL Lymphocytes # (0.90-5.00) X 10*3/uL Eosinophils # (0.04-0.35) X 10*3/uL D-Dimer 1.38 H (<0.60) mg/L FEU Sodium (137-145) mmol/L Carbon Dioxide 18.5 L (22-30) mmol/L BUN 27.1 H (7-17) mg/dL BUN/Creatinine Ratio 30.21 H (12.00-20.00) Ratio Glucose 467 H (74-99) mg/dL POC Glucose (mg/dL) 452 H (75-99) mg/dL Calcium 8.4 L (8.7-10.3) mg/dL Ferritin (10.0-291.0) ng/mL Lactate Dehydrogenase 411 H (313-618) U/L C-Reactive Protein 13.90 H (<1.0) mg/dL Albumin 3.4 L (3.8-4.9) g/dL Albumin/Globulin Ratio 1.21 L (1.60-3.17) g/dL Procalcitonin (0.02-0.09) ng/mL Coronavirus (PCR) (Not Detectd) 09/09/21 09/09/21 Range/Units 07:39 11:41 MCHC 31.1 L (32.0-37.0) g/dL RDW 15.3 H (11.5-14.5) % Neutrophils # (1.3-7.7) k/uL Lymphocytes # 0.74 L (0.90-5.00) X 10*3/uL Eosinophils # 0 L (0.04-0.35) X 10*3/uL D-Dimer (<0.60) mg/L FEU Sodium (137-145) mmol/L Carbon Dioxide (22-30) mmol/L BUN (7-17) mg/dL BUN/Creatinine Ratio (12.00-20.00) Ratio Glucose (74-99) mg/dL POC Glucose (mg/dL) 368 H (75-99) mg/dL Calcium (8.7-10.3) mg/dL Ferritin (10.0-291.0) ng/mL Lactate Dehydrogenase (313-618) U/L C-Reactive Protein (<1.0) mg/dL Albumin (3.8-4.9) g/dL Albumin/Globulin Ratio (1.60-3.17) g/dL Procalcitonin (0.02-0.09) ng/mL Coronavirus (PCR) (Not Detectd) Assessment and Plan Plan: 1 acute COVID 19 related pneumonia. The patient was symptomatic approximately 8 days ago. The patient came into the emergency and the patient received monoclonal antibodies. The patient is non-vaccinated. She is having shortness of breath and generalized weakness along with other constitutional symptoms such as diminished appetite and the patient has not been eating. The patient is coming in also for hypoxic respiratory failure, and since yesterday her oxygen requirements have increased and the patient is currently on 10 L of oxygen by nasal cannula. She is felt to be outside the window for Remdesivir treatment. The patient is currently on 10 L and she is also on Decadron. The inflammatory markers including LDH is not elevated. D-dimer is at 1.38. CRP is a 13.9. The pro-calcitonin level is at 0.12. 2 acute hypoxic respiratory failure currently on oxygen at 10 L 3 shortness of breath secondary to above 4 chronic bronchial asthma maintained on Wixela Inhub on outpatient basis, currently on Symbicort 5 history of obesity and the patient undergone previous bariatric surgery current BMI 34.6 6 history of rheumatoid arthritis, mild and not take any form of immunosuppressive agents 7 history of diabetes mellitus maintained on insulin pump on outpatient basis 8 previous history of CVA, 9 chronic venous insufficiency 10 fibromyalgia 11 hypothyroidism 12 history of degenerative arthritis and the patient has undergone a right shoulder replacement Plan Overall respiratory status is stable for now. The patient will be given oxygen and currently she is on 10 L. We'll start the patient on Decadron 6 mg IV every 24 hours and monitor sugars Start the patient on Lovenox 40 mg subcu for DVT prophylaxis. The patient is out of the window for Remdesivir We'll start the patient home medication and monitor the blood sugars and put on a sliding scale coverage IV Fluids to KVO We'll continue to follow this patient make further recommendations based on her progress.
[2021-09-09] MEDS: ENOXAPARIN 40 MG/0.4 ML SYRINGE SQ SCH (15:17)
[2021-09-09 16:22] LABS: Glucose,Whole Blood 359 mg/dL (75-99)
[2021-09-09 20:30] LABS: Glucose,Whole Blood 318 mg/dL (75-99)
[2021-09-10] MEDS: LORazepam 0.5 MG TAB PO PRN (00:08)
[2021-09-10] MEDS: LEVOTHYROXINE 112 MCG TAB PO SCH (05:33)
--- NOTE | 2021-09-10 06:52 | P.HPIM ---
History of Present Illness H&P Date: 09/09/21 Chief Complaint: shortness of breath Shayy Drew is a 76 yo F with PMH of T2DM on insulin pump, RA, HTN, HLD, obesity who presented to the ED with worsening shortness of breath over the past 2 weeks. She states her symptoms started as congestion, fever, chills, she went to her PCP clinic and was COVID positive. Pt was given steroid taper as an outpatient which helped somewhat but her symptoms subsequently worsened. on presentation she was hypoxic to 84% on RA, labs significant for elevated d-dimer and CRP. Pt placed on 4 LPM O2 with improvement in her oxygenation. Review of Systems All systems: negative Constitutional: Reports fever, Reports malaise, Denies chills Eyes: denies blurred vision, denies pain Ears, nose, mouth and throat: Denies headache, Denies sore throat Cardiovascular: Denies chest pain, Denies shortness of breath Respiratory: Reports cough, Reports dyspnea Gastrointestinal: Denies abdominal pain, Denies diarrhea, Denies nausea, Denies vomiting Genitourinary: Denies dysuria, Denies hematuria Musculoskeletal: Denies myalgias Integumentary: Denies pruritus, Denies rash Neurological: Denies numbness, Denies weakness Psychiatric: Denies anxiety, Denies depression Endocrine: Denies fatigue, Denies weight change Past Medical History Past Medical History: Asthma, Chest Pain / Angina, CVA/TIA, Diabetes Mellitus, Fibromyalgia, GERD/Reflux, Hyperlipidemia, Hypertension, Osteoarthritis (OA), Pneumonia, Rheumatoid Arthritis (RA), Skin Disorder, Thyroid Disorder Additional Past Medical History / Comment(s): Hx. of headaches, varicose veins, hx. of occ palpitations, hiatal hernia, hx ulcer, anemia., chronic venous insufficiency History of Any Multi-Drug Resistant Organisms: None Reported Past Surgical History: Bariatric Surgery, Cholecystectomy, Hernia Repair, Hysterectomy, Joint Replacement, Orthopedic Surgery Additional Past Surgical History / Comment(s): Gastric sleeve removed, and LAP BAND REMOVED ON 12/09/2013. isaiah knee replacement, isaiah ankle surgery, right shoulder. Past Anesthesia/Blood Transfusion Reactions: No Reported Reaction Past Psychological History: Anxiety, Depression Smoking Status: Former smoker Past Alcohol Use History: None Reported Additional Past Alcohol Use History / Comment(s): Quit smoking in her 20,s. Smoked very little. Past Drug Use History: None Reported - Past Family History Mother Family Medical History: Cancer Additional Family Medical History / Comment(s): Lung Father Family Medical History: Cancer Additional Family Medical History / Comment(s): Colon Sister(s) Family Medical History: Cancer Additional Family Medical History / Comment(s): Adrenal Medications and Allergies Home Medications Medication Instructions Recorded Confirmed Type Insulin Aspart (For Pump) [NovoLOG 0.01 unit SQ-PUMP CONTINUOUS 09/24/18 09/08/21 History (For Pump)] Albuterol Inhaler [Ventolin Hfa 1 puff INHALATION RT-Q4H PRN 09/08/21 09/08/21 History Inhaler] Cetirizine HCl [Zyrtec] 10 mg PO DAILY 09/08/21 09/08/21 History EPINEPHrine (Auto Inject) [Epipen] 0.3 mg IM ONCE PRN 09/08/21 09/08/21 History Fluticasone Propion/Salmeterol 1 puff INHALATION RT-BID 09/08/21 09/08/21 History [Wixela 250-50 Inhub] LORazepam [Ativan] 0.5 mg PO DAILY PRN 09/08/21 09/08/21 History Levothyroxine Sodium [Synthroid] 112 mcg PO DAILY 09/08/21 09/08/21 History Nitroglycerin Sl Tabs [Nitrostat] 0.4 mg SL Q5M PRN 09/08/21 09/08/21 History Pramipexole Di-HCl [Mirapex] 1.5 mg PO HS 09/08/21 09/08/21 History SILVER sulfADIAZINE Cream 1 applic TOPICAL BID 09/08/21 09/08/21 History [Silvadene 1% Cream] Triamcinolone 0.1% Cream [Kenalog 1 applic TOPICAL BID 09/08/21 09/08/21 History 0.1% Cream] Venlafaxine HCl [Effexor] 75 mg PO DAILY 09/08/21 09/08/21 History busPIRone HCL [Buspar] 7.5 mg PO BID 09/08/21 09/08/21 History lisinopriL 40 mg PO DAILY 09/08/21 09/08/21 History Allergies Allergy/AdvReac Type Severity Reaction Status Date / Time banana [Banana] Allergy Rash/Hives, Verified 09/08/21 14:50 throat symptoms Fish Containing Products Allergy Swelling Verified 09/08/21 14:50 Iodinated Contrast Media Allergy Anaphylaxis Verified 09/08/21 14:50 [Iodinated Contrast Media - IV Dye] iodine Allergy Anaphylaxis Verified 09/08/21 14:50 Latex, Natural Rubber Allergy Swelling Verified 09/08/21 14:50 Penicillins Allergy Rash/Hives Verified 09/08/21 14:50 prochlorperazine edisylate Allergy Rapid Verified 09/08/21 14:50 [From Compazine] Heart Rate prochlorperazine maleate Allergy Rapid Verified 09/08/21 14:50 [From Compazine] Heart Rate codeine AdvReac Abdominal Verified 09/08/21 14:50 Pain hydromorphone HCl AdvReac confused Verified 09/08/21 14:50 [From Dilaudid] meperidine HCl [From Demerol] AdvReac Hallucinati Verified 09/08/21 14:50 ons Physical Exam Vitals: Vital Signs Temp Pulse Resp BP Pulse Ox 09/10/21 06:08 97.7 F 68 149/80 94 L 09/10/21 01:52 97.6 F 68 17 160/76 92 L 09/09/21 23:08 97.8 F 75 171/78 88 L 09/09/21 21:27 76 18 09/09/21 20:55 93 L 09/09/21 17:20 98.2 F 76 18 160/74 92 L 09/09/21 14:20 98 F 76 18 164/77 91 L 09/09/21 13:00 93 L 09/09/21 09:37 91 L 09/09/21 09:33 98.4 F 84 18 168/78 84 L Intake and Output 09/09/21 09/09/21 09/10/21 14:59 22:59 06:59 Other: # Voids 2 3 # Bowel Movements 0 General: well nourished, well developed, NAD Obese. Vitals reviewed Eyes: PERRL, EOMI, conjunctiva normal HENT: normocephalic, mucus membranes moist Neck: supple, no JVD Lungs: normal respiratory effort, no wheezes or rales CV: Regular rate and rhythm, no murmur. Peripheral pulses 2+ Abdomen: soft, nondistended, no organomegaly Lymph: no cervical or axillary LAD Skin: warm and dry. Neuro: A&Ox3, normal mood and affect Results CBC & Chem 7: 09/09/21 07:39 09/09/21 07:39 Labs: Abnormal Lab Results - Last 24 Hours (Table) 09/09/21 09/09/21 09/09/21 Range/Units 07:25 07:39 07:39 MCHC (32.0-37.0) g/dL RDW (11.5-14.5) % Lymphocytes # (0.90-5.00) X 10*3/uL Eosinophils # (0.04-0.35) X 10*3/uL D-Dimer 1.38 H (<0.60) mg/L FEU Carbon Dioxide 18.5 L (20.0-27.5) mmol/L BUN 27.1 H (9.0-27.0) mg/dL BUN/Creatinine Ratio 30.21 H (12.00-20.00) Ratio Glucose 467 H (70-110) mg/dL POC Glucose (mg/dL) 452 H (75-99) mg/dL Calcium 8.4 L (8.7-10.3) mg/dL Lactate Dehydrogenase 411 H (120-246) U/L C-Reactive Protein 13.90 H (0.00-0.80) mg/dL Albumin 3.4 L (3.8-4.9) g/dL Albumin/Globulin Ratio 1.21 L (1.60-3.17) g/dL 09/09/21 09/09/21 09/09/21 Range/Units 07:39 11:41 16:21 MCHC 31.1 L (32.0-37.0) g/dL RDW 15.3 H (11.5-14.5) % Lymphocytes # 0.74 L (0.90-5.00) X 10*3/uL Eosinophils # 0 L (0.04-0.35) X 10*3/uL D-Dimer (<0.60) mg/L FEU Carbon Dioxide (20.0-27.5) mmol/L BUN (9.0-27.0) mg/dL BUN/Creatinine Ratio (12.00-20.00) Ratio Glucose (70-110) mg/dL POC Glucose (mg/dL) 368 H 359 H (75-99) mg/dL Calcium (8.7-10.3) mg/dL Lactate Dehydrogenase (120-246) U/L C-Reactive Protein (0.00-0.80) mg/dL Albumin (3.8-4.9) g/dL Albumin/Globulin Ratio (1.60-3.17) g/dL 09/09/21 Range/Units 20:29 MCHC (32.0-37.0) g/dL RDW (11.5-14.5) % Lymphocytes # (0.90-5.00) X 10*3/uL Eosinophils # (0.04-0.35) X 10*3/uL D-Dimer (<0.60) mg/L FEU Carbon Dioxide (20.0-27.5) mmol/L BUN (9.0-27.0) mg/dL BUN/Creatinine Ratio (12.00-20.00) Ratio Glucose (70-110) mg/dL POC Glucose (mg/dL) 318 H (75-99) mg/dL Calcium (8.7-10.3) mg/dL Lactate Dehydrogenase (120-246) U/L C-Reactive Protein (0.00-0.80) mg/dL Albumin (3.8-4.9) g/dL Albumin/Globulin Ratio (1.60-3.17) g/dL Thrombosis Risk Factor Assmnt - Choose All That Apply Any of the Below Risk Factors Present?: Yes Each Factor Represents 1 point: Abnormal pulmonary function (COPD), Swollen legs (current) Other Risk Factors: No Thrombosis Risk Factor Assessment Total Risk Factor Score: 2 Thrombosis Risk Factor Assessment Level: Low Risk Assessment and Plan Plan: 1. Acute hypoxic respiratory failure secondary to COVID pneumonia. Admit, pulmonology consult. Start decadron, COVID vitamins, lovenox. Supplemental O2 as required. Ventolin prn 2. T2DM. Hold insulin pump, cover with sliding scale insulin 3. HTN. Continue home lisinopril 4. Hypothyroidism. continue with synthroid
[2021-09-10] MEDS: SYMBICORT 160-4.5 MCG INHALER INHALATION SCH ×2 (08:58→20:29)
[2021-09-10] MEDS: ALBUTEROL HFA INHALER INHALATION SCH ×4 (08:58→20:28)
[2021-09-10 09:22] LABS: Glucose,Whole Blood 457 mg/dL (75-99)
[2021-09-10] MEDS: busPIRone HCl 5 MG TAB PO SCH ×2 (09:27→22:01)
[2021-09-10] MEDS: dexAMETHasone 2 MG TAB PO SCH (09:27)
[2021-09-10] MEDS: FAMOTIDINE 20 MG TAB PO SCH (09:27)
[2021-09-10] MEDS: lisinopriL 20 MG TAB PO SCH (09:27)
[2021-09-10] MEDS: ENOXAPARIN 40 MG/0.4 ML SYRINGE SQ SCH (09:27)
[2021-09-10] MEDS: ASCORBIC ACID 500 MG TAB PO SCH ×2 (09:28→22:01)
[2021-09-10] MEDS: LORATADINE 10 MG TAB PO SCH (09:28)
[2021-09-10] MEDS: ZINC SULFATE 220 MG CAP PO SCH (09:28)
[2021-09-10] MEDS: CHOLECALCIFEROL 25 MCG (1000 IU) TABLET PO SCH (09:28)
[2021-09-10] MEDS: INSULIN ASPART (NovoLOG) 100 UNIT/ML VIAL SQ SCH ×7 (09:28→22:00)
[2021-09-10] MEDS: VENLAFAXINE HCL 75 MG TAB PO SCH (09:28)
[2021-09-10 12:03] LABS: Glucose,Whole Blood 405 mg/dL (75-99)
[2021-09-10] MEDS: INSULIN DETEMIR (LEVEMIR) 100 UNIT/ML SYR SQ SCH (12:12)
--- NOTE | 2021-09-10 15:24 | P.PN ---
Subjective Progress Note Date: 09/10/21 Principal diagnosis: Acute hypoxic respiratory failure secondary to COVID-19 pneumonia Shayy Drew is a 76 yo F with PMH of T2DM on insulin pump, RA, HTN, HLD, obesity who presented to the ED with worsening shortness of breath over the past 2 weeks. She states her symptoms started as congestion, fever, chills, she went to her PCP clinic and was COVID positive. Pt was given steroid taper as an outpatient which helped somewhat but her symptoms subsequently worsened. on presentation she was hypoxic to 84% on RA, labs significant for elevated d-dimer and CRP. Pt placed on 4 LPM O2 with improvement in her oxygenation. 09/10/2021 Patient is currently in the select care unit. Lying in the bed. Awake alert and oriented 3. Requiring oxygen at 8 L via nasal cannula and saturating around 90%. Patient otherwise denied any complaints of fever or chills. No cough or sputum production. No headache or dizziness or leg tenderness. Tolerating oral diet. Currently being continued on dexamethasone, Lovenox and multivitamins. Blood pressure is elevated to 400s. Patient is on insulin pump at home. Currently not available. Was started on insulin regimen subcu. No complaints of chest pain. Laboratory data reviewed. Current medications reviewed. Objective - Vital Signs Vital signs: Vital Signs Temp 98.3 F 09/10/21 14:58 Pulse 82 09/10/21 14:58 Resp 18 09/10/21 14:58 BP 172/70 09/10/21 14:58 Pulse Ox 92 L 09/10/21 14:58 Intake & Output 09/09/21 09/10/21 09/10/21 18:59 06:59 18:59 Other: Voiding Method Bedside Commode # Voids 3 3 # Bowel Movements 0 - Exam PHYSICAL EXAMINATION: Patient is lying in the bed comfortably, no acute distress, awake alert and oriented.. HEENT: Normocephalic. Neck is supple. Pupils reactive. Nostrils clear. Oral cavity is moist. Neck reveals no JVD, carotid bruits, or thyromegaly. CHEST EXAMINATION: Trachea is central. Symmetrical expansion. Bibasilar minimal crackles. No wheezing. Nonlabored breathing.. CARDIAC: Normal S1, S2 with no gallops. No murmurs ABDOMEN: Soft. Bowel sounds normal. No organomegaly. No abdominal bruits. Extremities: reveal no edema. No clubbing or cyanosis Neurologically awake, alert, oriented x3 with well-coordinated movements. No focal deficits noted Skin: No rash or skin lesions. Psychiatric: Coperative. Nonsuicidal Musculoskeletal: No joint swelling or deformity. Normal range of motion. - Labs CBC & Chem 7: 09/09/21 07:39 09/09/21 07:39 Labs: Abnormal Lab Results - Last 24 Hours (Table) 09/09/21 09/09/21 09/10/21 Range/Units 16:21 20:29 09:20 POC Glucose (mg/dL) 359 H 318 H 457 H (75-99) mg/dL 09/10/21 Range/Units 12:01 POC Glucose (mg/dL) 405 H (75-99) mg/dL Assessment and Plan Assessment: Acute COVID-19 pneumonia. Patient has been having symptoms 8 days prior to admission. Was given monoclonal antibodies. Patient is not vaccinated. Acute hypoxic respiratory failure requiring oxygen via nasal cannula. On 8 L currently. Chronic bronchial asthma Obesity with BMI 34.6 Rheumatoid arthritis Diabetes type1. On insulin pump at home Hyperglycemia due to uncontrolled diabetes and steroids. History of CVA Chronic venous insufficiency Fibromyalgia Hypothyroidism Degenerative joint disease. Plan: Patient be continued on oxygen supplementation at 8 L via nasal cannula. Continue with IV dexamethasone, Lovenox and also multivitamins. Increase oral intake. Pulmonary is on board. Continue with insulin sliding scale and started on insulin regimen due to hyperglycemia. Continue to follow closely. Time with Patient: Greater than 30
[2021-09-10 16:42] LABS: Glucose,Whole Blood 316 mg/dL (75-99)
[2021-09-10] MEDS: SODIUM CHLORIDE 0.9% 1,000 ML IV SCH (16:56)
[2021-09-10 20:28] LABS: Glucose,Whole Blood 268 mg/dL (75-99)
[2021-09-10] MEDS: PRAMIPEXOLE 1 MG TAB PO SCH (22:01)
[2021-09-11] MEDS: LORazepam 0.5 MG TAB PO PRN (04:23)
[2021-09-11] MEDS: hydrALAZINE HCL 20 MG/ML 1 ML VIAL IVP PRN (05:57)
[2021-09-11] MEDS: LEVOTHYROXINE 112 MCG TAB PO SCH (05:57)
[2021-09-11 07:27] LABS: Glucose,Whole Blood 329 mg/dL (75-99)
[2021-09-11] MEDS: ALBUTEROL HFA INHALER INHALATION SCH ×4 (08:24→20:07)
[2021-09-11] MEDS: SYMBICORT 160-4.5 MCG INHALER INHALATION SCH ×2 (08:25→20:08)
[2021-09-11] MEDS: lisinopriL 20 MG TAB PO SCH (09:56)
[2021-09-11] MEDS: ENOXAPARIN 40 MG/0.4 ML SYRINGE SQ SCH (09:56)
[2021-09-11] MEDS: CHOLECALCIFEROL 25 MCG (1000 IU) TABLET PO SCH (09:56)
[2021-09-11] MEDS: busPIRone HCl 5 MG TAB PO SCH ×2 (09:57→21:22)
[2021-09-11] MEDS: ZINC SULFATE 220 MG CAP PO SCH (09:57)
[2021-09-11] MEDS: ASCORBIC ACID 500 MG TAB PO SCH ×2 (09:57→21:22)
[2021-09-11] MEDS: FAMOTIDINE 20 MG TAB PO SCH (09:57)
[2021-09-11] MEDS: dexAMETHasone 2 MG TAB PO SCH (09:57)
[2021-09-11] MEDS: LORATADINE 10 MG TAB PO SCH (09:57)
[2021-09-11] MEDS: VENLAFAXINE HCL 75 MG TAB PO SCH (09:57)
[2021-09-11] MEDS: INSULIN DETEMIR (LEVEMIR) 100 UNIT/ML SYR SQ SCH (09:58)
[2021-09-11] MEDS: INSULIN ASPART (NovoLOG) 100 UNIT/ML VIAL SQ SCH ×7 (09:58→21:23)
[2021-09-11 11:38] LABS: Glucose,Whole Blood 358 mg/dL (75-99)
[2021-09-11 16:35] LABS: Glucose,Whole Blood 288 mg/dL (75-99)
[2021-09-11] MEDS: SODIUM CHLORIDE 0.9% 1,000 ML IV SCH (17:39)
[2021-09-11 20:53] LABS: Glucose,Whole Blood 242 mg/dL (75-99)
[2021-09-11] MEDS: PRAMIPEXOLE 1 MG TAB PO SCH (21:23)
[2021-09-11] MEDS ORDERED: INSULIN DETEMIR (LEVEMIR) 100 UNIT/ML SYR SQ ONE (23:09)
--- NOTE | 2021-09-11 23:11 | P.PN ---
Subjective Progress Note Date: 09/11/21 Principal diagnosis: Acute hypoxic respiratory failure secondary to COVID-19 pneumonia Shayy Drew is a 76 yo F with PMH of T2DM on insulin pump, RA, HTN, HLD, obesity who presented to the ED with worsening shortness of breath over the past 2 weeks. She states her symptoms started as congestion, fever, chills, she went to her PCP clinic and was COVID positive. Pt was given steroid taper as an outpatient which helped somewhat but her symptoms subsequently worsened. on presentation she was hypoxic to 84% on RA, labs significant for elevated d-dimer and CRP. Pt placed on 4 LPM O2 with improvement in her oxygenation. 09/10/2021 Patient is currently in the select care unit. Lying in the bed. Awake alert and oriented 3. Requiring oxygen at 8 L via nasal cannula and saturating around 90%. Patient otherwise denied any complaints of fever or chills. No cough or sputum production. No headache or dizziness or leg tenderness. Tolerating oral diet. Currently being continued on dexamethasone, Lovenox and multivitamins. Blood pressure is elevated to 400s. Patient is on insulin pump at home. Currently not available. Was started on insulin regimen subcu. No complaints of chest pain. Laboratory data reviewed. 09/11/2021 Patient is currently sitting in the bed comfortably. Awake alert and oriented x3. Currently requiring oxygen at 7 L via nasal cannula. No complaints of chest pain or shortness of breath. Patient's blood sugars were elevated and was started on Levemir and insulin sliding scale. Blood sugars in 200s now. Patient denies any chest pain. Continued on dexamethasone 6 mg daily and Lovenox subcu. Patient is out of window for remdesivir. Laboratory data reviewed. Current medications reviewed. Objective - Vital Signs Vital signs: Vital Signs Temp 97.8 F 09/11/21 17:47 Pulse 83 09/11/21 17:47 Resp 17 09/11/21 17:47 BP 138/66 09/11/21 17:47 Pulse Ox 90 L 09/11/21 17:47 Intake & Output 09/11/21 09/11/21 09/12/21 06:59 18:59 06:59 Other: Voiding Method Bedside Commode # Voids 2 # Bowel Movements 0 1 - Exam PHYSICAL EXAMINATION: Patient is lying in the bed comfortably, no acute distress, awake alert and oriented.. HEENT: Normocephalic. Neck is supple. Pupils reactive. Nostrils clear. Oral cavity is moist. Neck reveals no JVD, carotid bruits, or thyromegaly. CHEST EXAMINATION: Trachea is central. Symmetrical expansion. Bibasilar minimal crackles. No wheezing. Nonlabored breathing.. CARDIAC: Normal S1, S2 with no gallops. No murmurs ABDOMEN: Soft. Bowel sounds normal. No organomegaly. No abdominal bruits. Extremities: reveal no edema. No clubbing or cyanosis Neurologically awake, alert, oriented x3 with well-coordinated movements. No focal deficits noted Skin: No rash or skin lesions. Psychiatric: Coperative. Nonsuicidal Musculoskeletal: No joint swelling or deformity. Normal range of motion. - Labs CBC & Chem 7: 09/09/21 07:39 09/09/21 07:39 Labs: Abnormal Lab Results - Last 24 Hours (Table) 09/11/21 09/11/21 09/11/21 Range/Units 07:25 11:36 16:34 POC Glucose (mg/dL) 329 H 358 H 288 H (75-99) mg/dL 09/11/21 Range/Units 20:51 POC Glucose (mg/dL) 242 H (75-99) mg/dL Assessment and Plan Assessment: Acute COVID-19 pneumonia. Patient has been having symptoms 8 days prior to admission. Was given monoclonal antibodies. Patient is not vaccinated. Acute hypoxic respiratory failure requiring oxygen via nasal cannula. On 7 L currently. Chronic bronchial asthma Obesity with BMI 34.6 Rheumatoid arthritis Diabetes type1. On insulin pump at home Hyperglycemia due to uncontrolled diabetes and steroids. History of CVA Chronic venous insufficiency Fibromyalgia Hypothyroidism Degenerative joint disease. Plan: Patient be continued on oxygen supplementation at 7L via nasal cannula. Continue with IV dexamethasone, Lovenox and also multivitamins. Increase oral intake. Pulmonary is on board. Continue with insulin sliding scale and started on insulin regimen due to hyperglycemia. Continue to follow closely.
[2021-09-12] MEDS: LEVOTHYROXINE 112 MCG TAB PO SCH (06:19)
[2021-09-12 07:49] LABS: Glucose,Whole Blood 260 mg/dL (75-99)
[2021-09-12] MEDS: SYMBICORT 160-4.5 MCG INHALER INHALATION SCH ×2 (08:04→20:25)
[2021-09-12] MEDS: ALBUTEROL HFA INHALER INHALATION SCH ×4 (08:04→20:25)
[2021-09-12] MEDS: CHOLECALCIFEROL 25 MCG (1000 IU) TABLET PO SCH (08:16)
[2021-09-12] MEDS: busPIRone HCl 5 MG TAB PO SCH ×2 (08:16→21:06)
[2021-09-12] MEDS: ASCORBIC ACID 500 MG TAB PO SCH ×2 (08:17→21:06)
[2021-09-12] MEDS: dexAMETHasone 2 MG TAB PO SCH (08:17)
[2021-09-12] MEDS: FAMOTIDINE 20 MG TAB PO SCH (08:18)
[2021-09-12] MEDS: lisinopriL 20 MG TAB PO SCH (08:18)
[2021-09-12] MEDS: ZINC SULFATE 220 MG CAP PO SCH (08:18)
[2021-09-12] MEDS: LORATADINE 10 MG TAB PO SCH (08:18)
[2021-09-12] MEDS: VENLAFAXINE HCL 75 MG TAB PO SCH (08:19)
[2021-09-12] MEDS: INSULIN DETEMIR (LEVEMIR) 100 UNIT/ML SYR SQ SCH ×2 (08:27→21:07)
[2021-09-12] MEDS: ENOXAPARIN 40 MG/0.4 ML SYRINGE SQ SCH (08:29)
[2021-09-12] MEDS: INSULIN ASPART (NovoLOG) 100 UNIT/ML VIAL SQ SCH ×7 (08:36→21:06)
[2021-09-12 10:34] LABS: Basophils # (A) 0.01 X 10*3/uL (0.00-0.10); Basophils % (A) 0.1 %; Eosinophils # (A) 0 X 10*3/uL (0.04-0.35); Eosinophils % (A) 0 %; HCT 41.2 % (37.2-46.3); HGB 12.8 g/dL (12.0-15.0); Lymphocytes # (A) 0.86 X 10*3/uL (0.90-5.00); Lymphocytes % (A) 9.2 %; MCHC 31.1 g/dL (32.0-37.0); MCV 90.2 fL (80.0-97.0); Mean Platelet Volume 10.7 fL (9.5-12.2); Monocytes # (A) 0.45 X 10*3/uL (0.20-1.00); Monocytes % (A) 4.8 %; Neutrophils % (A) 85.2 %; Platelet Count 240 X 10*3/uL (140-440); RBC 4.57 X 10*6/uL (4.10-5.20); RDW 15.7 % (11.5-14.5); WBC 9.39 X 10*3/uL (4.50-10.00)
[2021-09-12 10:49] LABS: Anion Gap 12.6 mmol/L (10.00-18.00); BUN/Creat Ratio 38.56 Ratio (12.00-20.00); Blood Urea Nitrogen 34.7 mg/dL (9.0-27.0); Calcium 8.4 mg/dL (8.7-10.3); Carbon Dioxide 21.4 mmol/L (20.0-27.5); Non-African American GFR(CKD) 62.1 (60.0-200.0); Potassium 4.2 mmol/L (3.5-5.5)
[2021-09-12 11:53] LABS: Glucose,Whole Blood 324 mg/dL (75-99)
--- NOTE | 2021-09-12 14:20 | CDI ---
Documentation Clarification Form Date: 09/12/2021 02:11:27 PM From: Farzana RamosKAMILA purdy, CCDS Admit Date: 09/08/2021 02:20:00 PM Patient Name: Shayy Drew Visit Number: [id number] Discharge Date: ATTENTION: The Clinical Documentation Specialists (CDI) and [facility] Coding Staff appreciate your assistance in clarifying documentation. Please respond to the clarification below the line at the bottom and electronically sign. The CDI & [facility] Coding staff will review the response and follow-up if needed. Please note: Queries are made part of the Legal Health Record. If you have any questions, please contact the author of this message via ITS. Dr. Jocelynn Yeager: Asthma is documented in the 09/08 ED Note, the 09.08 Pulmonary Consult and the 09/09 History & Physical in the patient's Past Medical History without further specificity. Asthma is also documented in the 09/09 Pulmonary Progress Note as Chronic Bronchial Asthma without further specificity. Additional clarification regarding the type of asthma is requested. History/risk factors per the 09/09 H/P: Asthma, Angina, CVA/TIA, DM, Fibromyalgia, GERD, Hyperlipidemia, Hypertension, Osteoarthritis, Pneumonia, Rheumatoid Arthritis, Hypothyroid, Varicose Veins, Anxiety, Depression and former smoker. Clinical Indicators: Presented to the ED on 09/08 with SOB. Was in the ED the day before and received Monoclonal Antibodies. Dyspnea has worsened. Also had brown sputum, fatigue, nausea, decreased appetite and loss of taste and smell. Impression: COVID 19, Hypoxia 09/08 VS: T 98.9, P 85, R 24 (sob), BP 163/82, PO 85 RA - 4Lnc, BMI: 34.6 12. LAB: Neut 8.6; D Dimer 1.24; Na 134, CO2 20, BUN 31, Glucose 368, Ferritin 390.0, LDH 1152, CRP 19.9, Procalcitonin 0.12 09/09 COVID POSITIVE 09/08 CXR: Correlate for interstitial pneumonia stable from prior exam. Correlate for COPD. Treatment: O2 4Lnc, INH Ventolin, IV Decadron, IV Zofran, po Orazinc, INH Symbicort, po Vit C Home meds: Insulin (pump), INH Ventolin, Effexor, Buspar, Zyrtec, Synthroid, Lisinopril Please clarify the type and severity of asthma, if known: [ ] Extrinsic asthma [ ] with exacerbation [ ] without exacerbation [ x ] Intrinsic asthma [ ] with exacerbation [ ] without exacerbation [ ] Mild intermittent asthma [ ] with exacerbation [ ] without exacerbation [ ] Mild persistent asthma [ ] with exacerbation [ ] without exacerbation [ ] Moderate persistent asthma [ ] with exacerbation [ ] without exacerbation [ ] Severe persistent asthma [ ] with exacerbation [ ] without exacerbation [ ] Other, please specify ____ [ ] Unable to determine (Template Last Revised: December 2020) MTDD
[2021-09-12 16:29] LABS: Glucose,Whole Blood 325 mg/dL (75-99)
--- NOTE | 2021-09-12 16:55 | P.PN ---
Subjective Progress Note Date: 09/13/21 Shayy Drew is a 76 yo F with PMH of T2DM on insulin pump, RA, HTN, HLD, obesity who presented to the ED with worsening shortness of breath over the past 2 weeks. She states her symptoms started as congestion, fever, chills, she went to her PCP clinic and was COVID positive. Pt was given steroid taper as an outpatient which helped somewhat but her symptoms subsequently worsened. on presentation she was hypoxic to 84% on RA, labs significant for elevated d-dimer and CRP. Pt placed on 4 LPM O2 with improvement in her oxygenation. 09/12/2021 Objective - Vital Signs Vital signs: Vital Signs Temp 96.8 F L 09/12/21 14:20 Pulse 85 09/12/21 14:20 Resp 18 09/12/21 14:20 BP 162/77 09/12/21 14:20 Pulse Ox 93 L 09/12/21 14:20 Intake & Output 09/11/21 09/12/21 09/12/21 18:59 06:59 18:59 Intake Total 472 Balance 472 Intake: Oral 472 Other: Voiding Method Bedside Commode Bedside Commode Bedside Commode # Voids 2 # Bowel Movements 1 0 - Exam General: well nourished, well developed, NAD Obese. Vitals reviewed Eyes: PERRL, EOMI, conjunctiva normal HENT: normocephalic, mucus membranes moist Neck: supple, no JVD Lungs: normal respiratory effort, no wheezes, fine bibasilar crackles CV: Regular rate and rhythm, no murmur. Peripheral pulses 2+ Abdomen: soft, nondistended, no organomegaly Skin: warm and dry. Neuro: A&Ox3, normal mood and affect - Labs CBC & Chem 7: 09/12/21 06:39 09/12/21 06:39 Labs: Abnormal Lab Results - Last 24 Hours (Table) 09/11/21 09/12/21 09/12/21 Range/Units 20:51 06:39 06:39 MCHC 31.1 L (32.0-37.0) g/dL RDW 15.7 H (11.5-14.5) % Immature Gran # 0.07 H (0.00-0.04) X 10*3/uL Neutrophils # 8.00 H (1.80-7.70) X 10*3/uL Lymphocytes # 0.86 L (0.90-5.00) X 10*3/uL Eosinophils # 0 L (0.04-0.35) X 10*3/uL BUN 34.7 H (9.0-27.0) mg/dL BUN/Creatinine Ratio 38.56 H (12.00-20.00) Ratio Glucose 288 H (70-110) mg/dL POC Glucose (mg/dL) 242 H (75-99) mg/dL Calcium 8.4 L (8.7-10.3) mg/dL 09/12/21 09/12/21 09/12/21 Range/Units 07:47 11:44 16:28 MCHC (32.0-37.0) g/dL RDW (11.5-14.5) % Immature Gran # (0.00-0.04) X 10*3/uL Neutrophils # (1.80-7.70) X 10*3/uL Lymphocytes # (0.90-5.00) X 10*3/uL Eosinophils # (0.04-0.35) X 10*3/uL BUN (9.0-27.0) mg/dL BUN/Creatinine Ratio (12.00-20.00) Ratio Glucose (70-110) mg/dL POC Glucose (mg/dL) 260 H 324 H 325 H (75-99) mg/dL Calcium (8.7-10.3) mg/dL Assessment and Plan Assessment: Acute Covid pneumonia Acute hypoxic respiratory failure secondary to the above Diabetes mellitus type 1, insulin pump at home, hyperglycemia Hypertension Hypothyroidism Obesity, BMI 34.6 Plan: Continue on current medication regime ,monitoring and symptomatic treatment. Maintain Covid cocktail. Follow closely with pulmonary. Levemir frequency increased to include at bedtime dosing as well, close monitoring of Accu-Cheks. The impression and plan of care has been dictated as directed. : I performed a history and examination of this patient, discussed the same with the dictator. I agree with the dictator's note ,documented as a scribe. Any additional findings or plans will be noted.
[2021-09-12] MEDS: SODIUM CHLORIDE 0.9% 1,000 ML IV SCH (17:38)
[2021-09-12 20:33] LABS: Glucose,Whole Blood 350 mg/dL (75-99)
[2021-09-12] MEDS: PRAMIPEXOLE 1 MG TAB PO SCH (22:45)
[2021-09-13] MEDS: LEVOTHYROXINE 112 MCG TAB PO SCH (05:21)
[2021-09-13 07:23] LABS: Glucose,Whole Blood 266 mg/dL (75-99)
[2021-09-13] MEDS: SYMBICORT 160-4.5 MCG INHALER INHALATION SCH ×2 (08:23→19:44)
[2021-09-13] MEDS: ALBUTEROL HFA INHALER INHALATION SCH ×4 (08:23→19:44)
[2021-09-13] MEDS: INSULIN DETEMIR (LEVEMIR) 100 UNIT/ML SYR SQ SCH ×2 (08:34→21:09)
[2021-09-13] MEDS: INSULIN ASPART (NovoLOG) 100 UNIT/ML VIAL SQ SCH ×7 (08:34→21:09)
[2021-09-13] MEDS: CHOLECALCIFEROL 25 MCG (1000 IU) TABLET PO SCH (09:47)
[2021-09-13] MEDS: ENOXAPARIN 40 MG/0.4 ML SYRINGE SQ SCH (09:47)
[2021-09-13] MEDS: FAMOTIDINE 20 MG TAB PO SCH (09:48)
[2021-09-13] MEDS: ZINC SULFATE 220 MG CAP PO SCH (09:48)
[2021-09-13] MEDS: lisinopriL 20 MG TAB PO SCH (09:49)
[2021-09-13] MEDS: dexAMETHasone 2 MG TAB PO SCH (09:49)
[2021-09-13] MEDS: LORATADINE 10 MG TAB PO SCH (09:49)
[2021-09-13] MEDS: VENLAFAXINE HCL 75 MG TAB PO SCH (09:49)
[2021-09-13] MEDS: busPIRone HCl 5 MG TAB PO SCH ×2 (09:50→21:09)
[2021-09-13] MEDS: ASCORBIC ACID 500 MG TAB PO SCH ×2 (09:50→21:09)
[2021-09-13 11:39] LABS: Glucose,Whole Blood 266 mg/dL (75-99)
--- NOTE | 2021-09-13 12:22 | P.PN ---
Subjective Progress Note Date: 09/13/21 Shayy Drew is a 76 yo F with PMH of T2DM on insulin pump, RA, HTN, HLD, obesity who presented to the ED with worsening shortness of breath over the past 2 weeks. She states her symptoms started as congestion, fever, chills, she went to her PCP clinic and was COVID positive. Pt was given steroid taper as an outpatient which helped somewhat but her symptoms subsequently worsened. on presentation she was hypoxic to 84% on RA, labs significant for elevated d-dimer and CRP. Pt placed on 4 LPM O2 with improvement in her oxygenation. 09/12/2021 continues on Covid cocktail .maintaining O2 sats in the 90s on 6 L nasal cannula. Denies chest pain, palpitations or increased shortness of breath. Denies cough. Afebrile. Hyperglycemic. 09/13/2021 oxygen requirement lessened, currently requiring 5 L nasal cannula to maintain O2 sats in the 90s. Breathing better. Denies weakness. Denies chest pain, palpitations or increasing shortness of breath. Reports nausea secondary to some of her medications otherwise none, no emesis. Slept well. Occasional cough, no chills, no sweats. Yesterday the Levemir increased, blood sugars improving. Objective - Vital Signs Vital signs: Vital Signs Temp 97.6 F 09/13/21 10:00 Pulse 68 09/13/21 10:00 Resp 19 09/13/21 10:00 BP 182/80 09/13/21 10:00 Pulse Ox 94 L 09/13/21 10:00 Intake & Output 09/12/21 09/13/21 09/13/21 18:59 06:59 18:59 Intake Total 708 Balance 708 Intake: Oral 708 Other: Voiding Method Bedside Commode Bedside Commode Bedside Commode # Voids 2 3 - Exam General: Alert and oriented 3 ,Sitting up in chair, NAD Obese. Vitals reviewed Eyes: PERRL, EOMI, conjunctiva normal HENT: normocephalic, mucus membranes moist Neck: supple, no JVD Lungs: normal respiratory effort, no wheezes, fine bibasilar crackles CV: Regular rate and rhythm, no murmur. Peripheral pulses 2+ Abdomen: soft, nondistended, no organomegaly Skin: warm and dry. Neuro: No focal deficits - Labs CBC & Chem 7: 09/12/21 06:39 09/12/21 06:39 Labs: Abnormal Lab Results - Last 24 Hours (Table) 09/12/21 09/12/21 09/13/21 Range/Units 16:28 20:31 07:21 POC Glucose (mg/dL) 325 H 350 H 266 H (75-99) mg/dL 09/13/21 Range/Units 11:38 POC Glucose (mg/dL) 266 H (75-99) mg/dL Assessment and Plan Assessment: Acute Covid pneumonia Acute hypoxic respiratory failure secondary to the above Diabetes mellitus type 1, insulin pump at home, hyperglycemia Hypertension Hypothyroidism Obesity, BMI 34.6 Plan: Continue on current medication regime ,monitoring and symptomatic treatment. Continue on Covid cocktail. Levemir frequency further increased, close monitoring of Accu-Cheks. Continue weaning down O2, with potential discharge tomorrow if patient able to be maintained on 3-4 L nasal cannula O2. The impression and plan of care has been dictated as directed. : I performed a history and examination of this patient, discussed the same with the dictator. I agree with the dictator's note ,documented as a scribe. Any additional findings or plans will be noted.
[2021-09-13] MEDS ORDERED: INSULIN DETEMIR (LEVEMIR) 100 UNIT/ML SYR SQ ONE (12:30)
[2021-09-13 16:52] LABS: Glucose,Whole Blood 234 mg/dL (75-99)
[2021-09-13] MEDS: SODIUM CHLORIDE 0.9% 1,000 ML IV SCH (20:13)
[2021-09-13 21:01] LABS: Glucose,Whole Blood 250 mg/dL (75-99)
[2021-09-13] MEDS: PRAMIPEXOLE 1 MG TAB PO SCH (21:08)
[2021-09-13] MEDS: hydrALAZINE HCL 20 MG/ML 1 ML VIAL IVP PRN (23:03)
[2021-09-14] MEDS: LEVOTHYROXINE 112 MCG TAB PO SCH (05:43)
[2021-09-14 07:19] LABS: Glucose,Whole Blood 216 mg/dL (75-99)
[2021-09-14] MEDS: INSULIN ASPART (NovoLOG) 100 UNIT/ML VIAL SQ SCH ×7 (08:08→21:57)
[2021-09-14] MEDS: CHOLECALCIFEROL 25 MCG (1000 IU) TABLET PO SCH (08:08)
[2021-09-14] MEDS: INSULIN DETEMIR (LEVEMIR) 100 UNIT/ML SYR SQ SCH ×2 (08:08→21:57)
[2021-09-14] MEDS: ENOXAPARIN 40 MG/0.4 ML SYRINGE SQ SCH (08:08)
[2021-09-14] MEDS: LORATADINE 10 MG TAB PO SCH (08:09)
[2021-09-14] MEDS: ZINC SULFATE 220 MG CAP PO SCH (08:09)
[2021-09-14] MEDS: busPIRone HCl 5 MG TAB PO SCH ×2 (08:09→21:57)
[2021-09-14] MEDS: dexAMETHasone 2 MG TAB PO SCH (08:09)
[2021-09-14] MEDS: FAMOTIDINE 20 MG TAB PO SCH (08:09)
[2021-09-14] MEDS: lisinopriL 20 MG TAB PO SCH (08:09)
[2021-09-14] MEDS: ASCORBIC ACID 500 MG TAB PO SCH ×2 (08:09→21:57)
[2021-09-14] MEDS: VENLAFAXINE HCL 75 MG TAB PO SCH (08:10)
[2021-09-14] MEDS: ALBUTEROL HFA INHALER INHALATION SCH ×4 (09:42→20:57)
[2021-09-14] MEDS: SYMBICORT 160-4.5 MCG INHALER INHALATION SCH ×2 (09:42→20:57)
[2021-09-14 11:50] LABS: Glucose,Whole Blood 201 mg/dL (75-99)
--- NOTE | 2021-09-14 14:23 | P.PN ---
Subjective Progress Note Date: 09/14/21 Shayy Drew is a 76 yo F with PMH of T2DM on insulin pump, RA, HTN, HLD, obesity who presented to the ED with worsening shortness of breath over the past 2 weeks. She states her symptoms started as congestion, fever, chills, she went to her PCP clinic and was COVID positive. Pt was given steroid taper as an outpatient which helped somewhat but her symptoms subsequently worsened. on presentation she was hypoxic to 84% on RA, labs significant for elevated d-dimer and CRP. Pt placed on 4 LPM O2 with improvement in her oxygenation. 09/12/2021 continues on Covid cocktail .maintaining O2 sats in the 90s on 6 L nasal cannula. Denies chest pain, palpitations or increased shortness of breath. Denies cough. Afebrile. Hyperglycemic. 09/13/2021 oxygen requirement lessened, currently requiring 5 L nasal cannula to maintain O2 sats in the 90s. Breathing better. Denies weakness. Denies chest pain, palpitations or increasing shortness of breath. Reports nausea secondary to some of her medications otherwise none, no emesis. Slept well. Occasional cough, no chills, no sweats. Yesterday the Levemir increased, blood sugars improving. 09/14/2021 continues on Covid cocktail. Continues on 5 L nasal cannula O2 maintaining O2 sats in the 90s. Afebrile. Minimal cough. Denies chills or sweats. Levemir further increase, blood sugars continue to improve. Objective - Vital Signs Vital signs: Vital Signs Temp 97.8 F 09/14/21 10:00 Pulse 74 09/14/21 10:00 Resp 17 09/14/21 10:00 BP 176/69 09/14/21 10:00 Pulse Ox 91 L 09/14/21 10:00 Intake & Output 09/13/21 09/14/21 09/14/21 18:59 06:59 18:59 Intake Total 450 Balance 450 Intake: Oral 450 Other: Voiding Method Bedside Commode Bedside Commode # Voids 1 2 - Exam General: Alert and oriented 3 ,Sitting up in bed, NAD Obese. Vitals reviewed Eyes: PERRL, EOMI, conjunctiva normal HENT: normocephalic, mucus membranes moist Neck: supple, no JVD Lungs: normal respiratory effort, no wheezes, fine bibasilar crackles CV: Regular rate and rhythm, no murmur. Peripheral pulses 2+ Abdomen: soft, nondistended, no organomegaly Skin: warm and dry. Neuro: No focal deficits - Labs CBC & Chem 7: 09/12/21 06:39 09/12/21 06:39 Labs: Abnormal Lab Results - Last 24 Hours (Table) 09/13/21 09/13/21 09/14/21 Range/Units 16:49 21:00 07:18 POC Glucose (mg/dL) 234 H 250 H 216 H (75-99) mg/dL 09/14/21 Range/Units 11:49 POC Glucose (mg/dL) 201 H (75-99) mg/dL Assessment and Plan Assessment: Acute Covid pneumonia Acute hypoxic respiratory failure secondary to the above Diabetes mellitus type 1, insulin pump at home, hyperglycemia Hypertension Hypothyroidism Obesity, BMI 34.6 Plan: Continue on current medication regime ,monitoring and symptomatic treatment. Maintain Covid cocktail. close monitoring of Accu-Cheks. Increase ambulation as tolerated within room, up in chair for all meals. Continue weaning down O2, with potential discharge tomorrow if patient able to be maintained on 3-4 L nasal cannula O2. The impression and plan of care has been dictated as directed. : I performed a history and examination of this patient, discussed the same with the dictator. I agree with the dictator's note ,documented as a scribe. Any additional findings or plans will be noted.
[2021-09-14 16:34] LABS: Glucose,Whole Blood 234 mg/dL (75-99)
[2021-09-14 21:01] LABS: Glucose,Whole Blood 208 mg/dL (75-99)
[2021-09-14] MEDS: SODIUM CHLORIDE 0.9% 1,000 ML IV SCH (21:56)
[2021-09-14] MEDS: PRAMIPEXOLE 1 MG TAB PO SCH (21:56)
[2021-09-14] MEDS: LORazepam 0.5 MG TAB PO PRN (21:57)
[2021-09-14] MEDS: hydrALAZINE HCL 20 MG/ML 1 ML VIAL IVP PRN (21:57)
[2021-09-15] MEDS: LEVOTHYROXINE 112 MCG TAB PO SCH (05:36)
[2021-09-15 07:11] LABS: Glucose,Whole Blood 166 mg/dL (75-99)
[2021-09-15] MEDS: lisinopriL 20 MG TAB PO SCH (08:23)
[2021-09-15] MEDS: CHOLECALCIFEROL 25 MCG (1000 IU) TABLET PO SCH (08:23)
[2021-09-15] MEDS: ASCORBIC ACID 500 MG TAB PO SCH ×2 (08:23→20:27)
[2021-09-15] MEDS: ZINC SULFATE 220 MG CAP PO SCH (08:23)
[2021-09-15] MEDS: busPIRone HCl 5 MG TAB PO SCH ×2 (08:23→20:27)
[2021-09-15] MEDS: ENOXAPARIN 40 MG/0.4 ML SYRINGE SQ SCH (08:24)
[2021-09-15] MEDS: dexAMETHasone 2 MG TAB PO SCH (08:24)
[2021-09-15] MEDS: LORATADINE 10 MG TAB PO SCH (08:24)
[2021-09-15] MEDS: FAMOTIDINE 20 MG TAB PO SCH (08:24)
[2021-09-15] MEDS: VENLAFAXINE HCL 75 MG TAB PO SCH (08:25)
[2021-09-15] MEDS: INSULIN DETEMIR (LEVEMIR) 100 UNIT/ML SYR SQ SCH ×2 (08:26→20:30)
[2021-09-15] MEDS: INSULIN ASPART (NovoLOG) 100 UNIT/ML VIAL SQ SCH ×7 (08:26→20:27)
[2021-09-15] MEDS: ALBUTEROL HFA INHALER INHALATION SCH ×4 (09:17→20:57)
[2021-09-15] MEDS: SYMBICORT 160-4.5 MCG INHALER INHALATION SCH ×2 (09:17→20:57)
[2021-09-15 11:26] LABS: Glucose,Whole Blood 224 mg/dL (75-99)
--- NOTE | 2021-09-15 12:15 | P.PN ---
Subjective Progress Note Date: 09/15/21 Shayy Drew is a 76 yo F with PMH of T2DM on insulin pump, RA, HTN, HLD, obesity who presented to the ED with worsening shortness of breath over the past 2 weeks. She states her symptoms started as congestion, fever, chills, she went to her PCP clinic and was COVID positive. Pt was given steroid taper as an outpatient which helped somewhat but her symptoms subsequently worsened. on presentation she was hypoxic to 84% on RA, labs significant for elevated d-dimer and CRP. Pt placed on 4 LPM O2 with improvement in her oxygenation. 09/12/2021 continues on Covid cocktail .maintaining O2 sats in the 90s on 6 L nasal cannula. Denies chest pain, palpitations or increased shortness of breath. Denies cough. Afebrile. Hyperglycemic. 09/13/2021 oxygen requirement lessened, currently requiring 5 L nasal cannula to maintain O2 sats in the 90s. Breathing better. Denies weakness. Denies chest pain, palpitations or increasing shortness of breath. Reports nausea secondary to some of her medications otherwise none, no emesis. Slept well. Occasional cough, no chills, no sweats. Yesterday the Levemir increased, blood sugars improving. 09/14/2021 continues on Covid cocktail. Continues on 5 L nasal cannula O2 maintaining O2 sats in the 90s. Afebrile. Minimal cough. Denies chills or sweats. Levemir further increase, blood sugars continue to improve. 09/15/2021 maintaining O2 sats in the 90s on 5 L nasal cannula. Slept in chair. Denies chills or sweats, but complains of cold room. Minimal cough. Afebrile. Blood Sugars improving. Denies any chest pressure, chest pain or palpitations. Attempting to wean O2 to 4 L, patient desatted to 82-83%, sitting up at side of bed. Objective - Vital Signs Vital signs: Vital Signs Temp 97.8 F 09/15/21 09:42 Pulse 81 09/15/21 09:42 Resp 18 09/15/21 09:42 BP 136/71 09/15/21 09:42 Pulse Ox 93 L 09/15/21 09:42 Intake & Output 09/14/21 09/15/21 09/15/21 18:59 06:59 18:59 Intake Total 320 Output Total 350 Balance -30 Intake: Intake, IV Titration 100 Amount Sodium Chloride 0.9% 1, 100 000 ml @ 10 mls/hr IV . Q24H [facility] Rx#:[id number] Oral 220 Output: Urine 350 Other: Voiding Method Bedside Commode Bedside Commode Bedside Commode # Voids 1 - Exam General: Alert and oriented 3 ,Sitting up in chair, NAD Obese. Vitals reviewed. Eyes: PERRL, EOMI, conjunctiva normal HENT: normocephalic, mucus membranes moist Neck: supple, no JVD Lungs: normal respiratory effort, no wheezes, fine bibasilar crackles CV: Regular rate and rhythm, no murmur. Peripheral pulses 2+ Abdomen: soft, nondistended, no organomegaly Skin: warm and dry. Neuro: No focal deficits - Labs CBC & Chem 7: 09/12/21 06:39 09/12/21 06:39 Labs: Abnormal Lab Results - Last 24 Hours (Table) 09/14/21 09/14/21 09/15/21 Range/Units 16:30 20:59 07:07 POC Glucose (mg/dL) 234 H 208 H 166 H (75-99) mg/dL 09/15/21 Range/Units 11:23 POC Glucose (mg/dL) 224 H (75-99) mg/dL Assessment and Plan Assessment: Acute Covid pneumonia Acute hypoxic respiratory failure secondary to the above Diabetes mellitus type 1, insulin pump at home, hyperglycemia Hypertension Hypothyroidism Obesity, BMI 34.6 Plan: Continue on current medication regime ,monitoring and symptomatic treatment. Attempting to wean patient to 4 L nasal cannula with potential discharge if patient maintain 88% or better-unsuccessful as mentioned above. Continue on Covid cocktail. further tweaking of Levemir insulin for tighter at sugar control with close monitoring of Accu-Cheks. Increase ambulation as tolerated within room. The impression and plan of care has been dictated as directed. : I performed a history and examination of this patient, discussed the same with the dictator. I agree with the dictator's note ,documented as a scribe. Any additional findings or plans will be noted.
[2021-09-15 14:00] VITALS: BMI 34.5
[2021-09-15 16:28] LABS: Glucose,Whole Blood 249 mg/dL (75-99)
[2021-09-15] MEDS: SODIUM CHLORIDE 0.9% 1,000 ML IV SCH (16:33)
[2021-09-15 19:52] LABS: Glucose,Whole Blood 299 mg/dL (75-99)
[2021-09-15] MEDS: LORazepam 0.5 MG TAB PO PRN (20:28)
[2021-09-15] MEDS: PRAMIPEXOLE 1 MG TAB PO SCH (20:28)
[2021-09-15] MEDS: hydrALAZINE HCL 20 MG/ML 1 ML VIAL IVP PRN (21:01)
[2021-09-16] MEDS: LEVOTHYROXINE 112 MCG TAB PO SCH (06:00)
[2021-09-16 06:55] LABS: Glucose,Whole Blood 140 mg/dL (75-99)
[2021-09-16] MEDS: dexAMETHasone 2 MG TAB PO SCH (07:56)
[2021-09-16] MEDS: ZINC SULFATE 220 MG CAP PO SCH (07:56)
[2021-09-16] MEDS: FAMOTIDINE 20 MG TAB PO SCH (07:57)
[2021-09-16] MEDS: lisinopriL 20 MG TAB PO SCH (07:57)
[2021-09-16] MEDS: ASCORBIC ACID 500 MG TAB PO SCH ×2 (07:57→21:44)
[2021-09-16] MEDS: LORATADINE 10 MG TAB PO SCH (07:57)
[2021-09-16] MEDS: CHOLECALCIFEROL 25 MCG (1000 IU) TABLET PO SCH (07:57)
[2021-09-16] MEDS: INSULIN ASPART (NovoLOG) 100 UNIT/ML VIAL SQ SCH ×7 (07:58→21:37)
[2021-09-16] MEDS: busPIRone HCl 5 MG TAB PO SCH ×2 (07:58→21:39)
[2021-09-16] MEDS: ENOXAPARIN 40 MG/0.4 ML SYRINGE SQ SCH (07:58)
[2021-09-16] MEDS: INSULIN DETEMIR (LEVEMIR) 100 UNIT/ML SYR SQ SCH ×2 (07:59→21:38)
[2021-09-16] MEDS: VENLAFAXINE HCL 75 MG TAB PO SCH (07:59)
[2021-09-16] MEDS: SYMBICORT 160-4.5 MCG INHALER INHALATION SCH ×2 (09:01→21:32)
[2021-09-16] MEDS: ALBUTEROL HFA INHALER INHALATION SCH ×4 (09:01→21:32)
[2021-09-16 11:36] LABS: Glucose,Whole Blood 203 mg/dL (75-99)
--- NOTE | 2021-09-16 16:32 | P.PN ---
Subjective Progress Note Date: 09/16/21 Shayy Drew is a 76 yo F with PMH of T2DM on insulin pump, RA, HTN, HLD, obesity who presented to the ED with worsening shortness of breath over the past 2 weeks. She states her symptoms started as congestion, fever, chills, she went to her PCP clinic and was COVID positive. Pt was given steroid taper as an outpatient which helped somewhat but her symptoms subsequently worsened. on presentation she was hypoxic to 84% on RA, labs significant for elevated d-dimer and CRP. Pt placed on 4 LPM O2 with improvement in her oxygenation. 09/12/2021 continues on Covid cocktail .maintaining O2 sats in the 90s on 6 L nasal cannula. Denies chest pain, palpitations or increased shortness of breath. Denies cough. Afebrile. Hyperglycemic. 09/13/2021 oxygen requirement lessened, currently requiring 5 L nasal cannula to maintain O2 sats in the 90s. Breathing better. Denies weakness. Denies chest pain, palpitations or increasing shortness of breath. Reports nausea secondary to some of her medications otherwise none, no emesis. Slept well. Occasional cough, no chills, no sweats. Yesterday the Levemir increased, blood sugars improving. 09/14/2021 continues on Covid cocktail. Continues on 5 L nasal cannula O2 maintaining O2 sats in the 90s. Afebrile. Minimal cough. Denies chills or sweats. Levemir further increase, blood sugars continue to improve. 09/15/2021 maintaining O2 sats in the 90s on 5 L nasal cannula. Slept in chair. Denies chills or sweats, but complains of cold room. Minimal cough. Afebrile. Blood Sugars improving. Denies any chest pressure, chest pain or palpitations. Attempting to wean O2 to 4 L, patient desatted to 82-83%, sitting up at side of bed. 09/16/2021 maintaining O2 sats in the low 90s on 5 L nasal cannula, feels better. Denies chest pain, palpitations or increasing shortness of breath. Denies lightheadedness dizziness or focal deficits. Objective - Vital Signs Vital signs: Vital Signs Temp 97.9 F 09/16/21 14:00 Pulse 91 09/16/21 14:00 Resp 20 09/16/21 14:00 BP 110/65 09/16/21 14:00 Pulse Ox 93 L 09/16/21 14:00 Intake & Output 09/15/21 09/16/21 09/16/21 18:59 06:59 18:59 Weight 85.729 kg Other: Voiding Method Bedside Commode Bedside Commode Bedside Commode # Voids 2 5 - Exam General: Alert and oriented 3 ,Sitting up in chair, NAD Obese. Vitals reviewed. Eyes: PERRL, EOMI, conjunctiva normal HENT: normocephalic, mucus membranes moist Neck: supple, no JVD Lungs: normal respiratory effort, no wheezes, fine bibasilar crackles CV: Regular rate and rhythm, no murmur. Peripheral pulses 2+ Abdomen: soft, nondistended, no organomegaly. Neuro: No focal deficits - Labs CBC & Chem 7: 09/12/21 06:39 09/12/21 06:39 Labs: Abnormal Lab Results - Last 24 Hours (Table) 09/15/21 09/15/21 09/16/21 Range/Units 16:25 19:51 06:53 POC Glucose (mg/dL) 249 H 299 H 140 H (75-99) mg/dL 09/16/21 Range/Units 11:35 POC Glucose (mg/dL) 203 H (75-99) mg/dL Assessment and Plan Assessment: Acute Covid pneumonia Acute hypoxic respiratory failure secondary to the above Diabetes mellitus type 1, insulin pump at home, hyperglycemia Hypertension Hypothyroidism Obesity, BMI 34.6 Plan: Continue on current medication regime ,monitoring and symptomatic treatment. Re-attempt to wean patient to 4 L nasal cannula with potential discharge if patient maintain 88% or better-unsuccessful as mentioned above. Continue on Covid cocktail. Increase ambulation as tolerated within room. The impression and plan of care has been dictated as directed. : I performed a history and examination of this patient, discussed the same with the dictator. I agree with the dictator's note ,documented as a scribe. Any additional findings or plans will be noted.
[2021-09-16 17:16] LABS: Glucose,Whole Blood 239 mg/dL (75-99)
[2021-09-16] MEDS: SODIUM CHLORIDE 0.9% 1,000 ML IV SCH (17:20)
[2021-09-16 20:35] LABS: Glucose,Whole Blood 243 mg/dL (75-99)
[2021-09-16] MEDS: LORazepam 0.5 MG TAB PO PRN (21:40)
[2021-09-16] MEDS: PRAMIPEXOLE 1 MG TAB PO SCH (22:29)
[2021-09-17] MEDS: LEVOTHYROXINE 112 MCG TAB PO SCH (06:01)
[2021-09-17 07:38] LABS: Glucose,Whole Blood 131 mg/dL (75-99)
[2021-09-17] MEDS: ALBUTEROL HFA INHALER INHALATION SCH ×4 (08:32→21:25)
[2021-09-17] MEDS: SYMBICORT 160-4.5 MCG INHALER INHALATION SCH ×2 (08:32→21:08)
[2021-09-17] MEDS: LORATADINE 10 MG TAB PO SCH (09:15)
[2021-09-17] MEDS: CHOLECALCIFEROL 25 MCG (1000 IU) TABLET PO SCH (09:15)
[2021-09-17] MEDS: ZINC SULFATE 220 MG CAP PO SCH (09:15)
[2021-09-17] MEDS: busPIRone HCl 5 MG TAB PO SCH ×2 (09:15→22:27)
[2021-09-17] MEDS: dexAMETHasone 2 MG TAB PO SCH (09:15)
[2021-09-17] MEDS: FAMOTIDINE 20 MG TAB PO SCH (09:15)
[2021-09-17] MEDS: ASCORBIC ACID 500 MG TAB PO SCH ×2 (09:15→22:26)
[2021-09-17] MEDS: INSULIN ASPART (NovoLOG) 100 UNIT/ML VIAL SQ SCH ×7 (09:16→22:26)
[2021-09-17] MEDS: ENOXAPARIN 40 MG/0.4 ML SYRINGE SQ SCH (09:16)
[2021-09-17] MEDS: lisinopriL 20 MG TAB PO SCH (09:16)
[2021-09-17] MEDS: VENLAFAXINE HCL 75 MG TAB PO SCH (09:17)
[2021-09-17] MEDS: INSULIN DETEMIR (LEVEMIR) 100 UNIT/ML SYR SQ SCH ×2 (09:17→22:25)
[2021-09-17 11:55] LABS: Glucose,Whole Blood 250 mg/dL (75-99)
--- NOTE | 2021-09-17 15:20 | P.PN ---
Subjective Shayy Drew is a 76 yo F with PMH of T2DM on insulin pump, RA, HTN, HLD, obesity who presented to the ED with worsening shortness of breath over the past 2 weeks. She states her symptoms started as congestion, fever, chills, she went to her PCP clinic and was COVID positive. Pt was given steroid taper as an outpatient which helped somewhat but her symptoms subsequently worsened. on presentation she was hypoxic to 84% on RA, labs significant for elevated d-dimer and CRP. Pt placed on 4 LPM O2 with improvement in her oxygenation. 09/17/2021 T is a pleasant 76 years old female with multiple medical problems was admitted with Covid pneumonia on both sides with acute hypoxic respiratory failure, currently she keep her oxygen saturation in 90s on for recurrent oxygen per minute. She's been evaluated by pulmonary during her early days of admission. Currently she is kept on dexamethasone, vitamin C, vitamin D and zinc. Also her sugar is elevated and she was started on Levemir 15 units twice a day which is increased to 17 units and NovoLog 7 units with meals. There is no labs for the last few days. Repeat labs and chest x-ray in the morning Objective - Vital Signs Vital signs: Vital Signs Temp 97.7 F 09/17/21 06:15 Pulse 76 09/17/21 06:15 Resp 18 09/17/21 06:15 BP 142/72 09/17/21 06:15 Pulse Ox 90 L 09/17/21 06:15 Intake & Output 09/16/21 09/17/21 09/17/21 18:59 06:59 18:59 Intake Total 700 Output Total 350 Balance 350 Intake: Oral 700 Output: Urine 350 Other: Voiding Method Bedside Commode Bedside Commode # Voids 2 2 - Exam -GENERAL: The patient is alert and oriented x3, not in any acute distress. Obese HEENT: Pupils are round and equally reacting to light. EOMI. No scleral icterus. No conjunctival pallor. Normocephalic, atraumatic. No pharyngeal erythema. No thyromegaly. CARDIOVASCULAR: S1 and S2 present. No murmurs, rubs, or gallops. PULMONARY: Chest is clear to auscultation, no wheezing or crackles. ABDOMEN: Soft, nontender, nondistended, normoactive bowel sounds. No palpable organomegaly. MUSCULOSKELETAL: No joint swelling or deformity. EXTREMITIES: No cyanosis, clubbing, or pedal edema. NEUROLOGICAL: Gross neurological examination did not reveal any focal deficits. SKIN: No rashes. no petechiae. - Labs CBC & Chem 7: 09/12/21 06:39 09/12/21 06:39 Labs: Abnormal Lab Results - Last 24 Hours (Table) 09/16/21 09/16/21 09/17/21 Range/Units 17:13 20:32 07:36 POC Glucose (mg/dL) 239 H 243 H 131 H (75-99) mg/dL Assessment and Plan Assessment: Acute COVID-19 pneumonia. Was given monoclonal antibodies. Patient is not vaccinated. Acute hypoxic respiratory failure requiring oxygen via nasal cannula. On 4 L currently. Chronic bronchial asthma Obesity with BMI 34.6 Rheumatoid arthritis Diabetes type1. On insulin pump at home Hyperglycemia due to uncontrolled diabetes and steroids. History of CVA Chronic venous insufficiency Fibromyalgia Hypothyroidism Plan: This is a pleasant 76 years old female who presents with cough and pneumonia Continue with dexamethasone and multiple vitamins Continue with Levemir 17 units twice a day and NovoLog 7 units with meals. check labs and chest x-ray in the morning Labs and medication were reviewed.. Continue same treatment. Continue with symptomatic treatment. Resume home medication. Monitor lytes and vitals. DVT and GI prophylaxis. Further recommendationsas per clinical course of the patient DVT prophylaxis: Subcutaneous Lovenox GI Prophylaxis: Pepcid
[2021-09-17 16:51] LABS: Glucose,Whole Blood 416 mg/dL (75-99)
[2021-09-17] MEDS: SODIUM CHLORIDE 0.9% 1,000 ML IV SCH (17:02)
[2021-09-17 20:57] LABS: Glucose,Whole Blood 268 mg/dL (75-99)
[2021-09-17] MEDS: PRAMIPEXOLE 1 MG TAB PO SCH (22:26)
[2021-09-17] MEDS: LORazepam 0.5 MG TAB PO PRN (22:27)
[2021-09-17] MEDS: hydrALAZINE HCL 20 MG/ML 1 ML VIAL IVP PRN (23:13)
[2021-09-18] MEDS: LEVOTHYROXINE 112 MCG TAB PO SCH (06:50)
--- NOTE | 2021-09-18 07:26 | XR ---
EXAMINATION TYPE: XR chest 1V DATE OF EXAM: 09/18/2021 6:48 AM COMPARISON:Portable radiograph taken at [id number] CLINICAL INDICATION:Female, 76 years old with history of sob; TECHNIQUE: Portable AP radiograph of the chest.. FINDINGS: Lungs/Pleura: Similar multifocal airspace opacities. No evidence of pneumothorax or pleural effusion. Pulmonary vascularity: Unremarkable. Heart/mediastinum: Cardiomediastinal silhouette is unremarkable. Musculoskeletal: No acute osseous pathology. Right Reverse shoulder arthroplasty. IMPRESSION: Similar multifocal pneumonia.
[2021-09-18 07:33] LABS: Glucose,Whole Blood 165 mg/dL (75-99)
[2021-09-18] MEDS: INSULIN ASPART (NovoLOG) 100 UNIT/ML VIAL SQ SCH ×7 (07:46→22:07)
[2021-09-18] MEDS: INSULIN DETEMIR (LEVEMIR) 100 UNIT/ML SYR SQ SCH ×2 (07:46→22:06)
[2021-09-18] MEDS: ZINC SULFATE 220 MG CAP PO SCH (07:47)
[2021-09-18] MEDS: dexAMETHasone 2 MG TAB PO SCH (07:47)
[2021-09-18] MEDS: LORATADINE 10 MG TAB PO SCH (07:47)
[2021-09-18] MEDS: CHOLECALCIFEROL 25 MCG (1000 IU) TABLET PO SCH (07:47)
[2021-09-18] MEDS: FAMOTIDINE 20 MG TAB PO SCH (07:47)
[2021-09-18] MEDS: ASCORBIC ACID 500 MG TAB PO SCH ×2 (07:47→22:08)
[2021-09-18] MEDS: ENOXAPARIN 40 MG/0.4 ML SYRINGE SQ SCH (07:47)
[2021-09-18] MEDS: busPIRone HCl 5 MG TAB PO SCH ×2 (07:48→22:08)
[2021-09-18] MEDS: lisinopriL 20 MG TAB PO SCH (07:48)
[2021-09-18] MEDS: VENLAFAXINE HCL 75 MG TAB PO SCH (07:49)
[2021-09-18] MEDS: SYMBICORT 160-4.5 MCG INHALER INHALATION SCH ×2 (08:21→19:54)
[2021-09-18] MEDS: ALBUTEROL HFA INHALER INHALATION SCH ×4 (08:21→19:54)
[2021-09-18 11:00] LABS: African American GFR (CKD) 74.2 (60.0-200.0); BUN/Creat Ratio 39.64 Ratio (12.00-20.00); Blood Urea Nitrogen 34.8 mg/dL (9.0-27.0); C Reactive Protein 1.6 mg/dL (0.00-0.80); Calcium 8.5 mg/dL (8.7-10.3); Carbon Dioxide 22.4 mmol/L (20.0-27.5); Magnesium 2.2 mg/dL (1.5-2.4); Potassium 4.1 mmol/L (3.5-5.5)
[2021-09-18 11:14] LABS: Glucose,Whole Blood 197 mg/dL (75-99)
--- NOTE | 2021-09-18 15:23 | P.PN ---
Subjective Shayy Drew is a 76 yo F with PMH of T2DM on insulin pump, RA, HTN, HLD, obesity who presented to the ED with worsening shortness of breath over the past 2 weeks. She states her symptoms started as congestion, fever, chills, she went to her PCP clinic and was COVID positive. Pt was given steroid taper as an outpatient which helped somewhat but her symptoms subsequently worsened. on presentation she was hypoxic to 84% on RA, labs significant for elevated d-dimer and CRP. Pt placed on 4 LPM O2 with improvement in her oxygenation. 09/17/2021 T is a pleasant 76 years old female with multiple medical problems was admitted with Covid pneumonia on both sides with acute hypoxic respiratory failure, currently she keep her oxygen saturation in 90s on for recurrent oxygen per minute. She's been evaluated by pulmonary during her early days of admission. Currently she is kept on dexamethasone, vitamin C, vitamin D and zinc. Also her sugar is elevated and she was started on Levemir 15 units twice a day which is increased to 17 units and NovoLog 7 units with meals. There is no labs for the last few days. Repeat labs and chest x-ray in the morning 09/18/2021 patient respiratory status is improving and she feels easier breathing today although she still mildly tachypneic and her oxygen requirement down to 3 L/m today. Compared to before yesterday. Her C-reactive protein only mildly elevated at 1.6 and LDH 319 which is trending down. Glucose is better less than 1200 after increasing her Levemir to 17 units twice a day, also we will increase her NovoLog today 7 units up to 8 units 3 times a day. Chest x-ray showing similar pneumonia. She remains on dexamethasone and multiple vitamins Objective - Vital Signs Vital signs: Vital Signs Temp 97.8 F 09/18/21 10:00 Pulse 88 09/18/21 10:00 Resp 22 09/18/21 10:00 BP 121/64 09/18/21 10:00 Pulse Ox 90 L 09/18/21 10:00 Intake & Output 09/17/21 09/18/21 09/18/21 18:59 06:59 18:59 Intake Total 1080 1560 Balance 1080 1560 Intake: Oral 1080 1560 Other: Voiding Method Bedside Commode Toilet # Voids 3 - Exam -GENERAL: The patient is alert and oriented x3, not in any acute distress. Obese HEENT: Pupils are round and equally reacting to light. EOMI. No scleral icterus. No conjunctival pallor. Normocephalic, atraumatic. No pharyngeal erythema. No thyromegaly. CARDIOVASCULAR: S1 and S2 present. No murmurs, rubs, or gallops. PULMONARY: Chest is clear to auscultation, no wheezing or crackles. ABDOMEN: Soft, nontender, nondistended, normoactive bowel sounds. No palpable organomegaly. MUSCULOSKELETAL: No joint swelling or deformity. EXTREMITIES: No cyanosis, clubbing, or pedal edema. NEUROLOGICAL: Gross neurological examination did not reveal any focal deficits. SKIN: No rashes. no petechiae. - Labs CBC & Chem 7: 09/12/21 06:39 09/18/21 05:32 Labs: Abnormal Lab Results - Last 24 Hours (Table) 09/17/21 09/17/21 09/17/21 Range/Units 11:51 16:50 20:55 BUN (9.0-27.0) mg/dL BUN/Creatinine Ratio (12.00-20.00) Ratio Glucose (70-110) mg/dL POC Glucose (mg/dL) 250 H 416 H 268 H (75-99) mg/dL Calcium (8.7-10.3) mg/dL C-Reactive Protein (0.00-0.80) mg/dL 09/18/21 09/18/21 Range/Units 05:32 07:32 BUN 34.8 H (9.0-27.0) mg/dL BUN/Creatinine Ratio 39.64 H (12.00-20.00) Ratio Glucose 189 H (70-110) mg/dL POC Glucose (mg/dL) 165 H (75-99) mg/dL Calcium 8.5 L (8.7-10.3) mg/dL C-Reactive Protein 1.60 H (0.00-0.80) mg/dL Assessment and Plan Assessment: Acute COVID-19 pneumonia. Was given monoclonal antibodies. Patient is not vaccinated. Acute hypoxic respiratory failure requiring oxygen via nasal cannula. On 4 L currently. Chronic bronchial asthma Obesity with BMI 34.6 Rheumatoid arthritis Diabetes type1. On insulin pump at home Hyperglycemia due to uncontrolled diabetes and steroids. History of CVA Chronic venous insufficiency Fibromyalgia Hypothyroidism Plan: This is a pleasant 76 years old female who presents with cough and pneumonia Continue with dexamethasone and multiple vitamins Continue with Levemir 17 units twice a day and NovoLog 7 units with meals. check labs and chest x-ray in the morning Labs and medication were reviewed.. Continue same treatment. Continue with symptomatic treatment. Resume home medication. Monitor lytes and vitals. DVT and GI prophylaxis. Further recommendationsas per clinical course of the patient DVT prophylaxis: Subcutaneous Lovenox GI Prophylaxis: Pepcid Dr. Arciniega team resume care of the patient tomorrow
[2021-09-18 16:37] LABS: Glucose,Whole Blood 322 mg/dL (75-99)
[2021-09-18] MEDS: SODIUM CHLORIDE 0.9% 1,000 ML IV SCH (16:56)
[2021-09-18 20:02] LABS: Glucose,Whole Blood 327 mg/dL (75-99)
[2021-09-18] MEDS: PRAMIPEXOLE 1 MG TAB PO SCH (22:08)
[2021-09-18] MEDS: LORazepam 0.5 MG TAB PO PRN (22:09)
[2021-09-18] MEDS: hydrALAZINE HCL 20 MG/ML 1 ML VIAL IVP PRN (22:32)
[2021-09-19] MEDS: LEVOTHYROXINE 112 MCG TAB PO SCH (06:04)
[2021-09-19 06:49] VITALS: RESP 17
[2021-09-19 07:19] LABS: Glucose,Whole Blood 86 mg/dL (75-99)
[2021-09-19] MEDS: INSULIN ASPART (NovoLOG) 100 UNIT/ML VIAL SQ SCH ×4 (07:51→13:51)
[2021-09-19] MEDS: ENOXAPARIN 40 MG/0.4 ML SYRINGE SQ SCH (07:58)
[2021-09-19] MEDS: dexAMETHasone 2 MG TAB PO SCH (07:59)
[2021-09-19] MEDS: lisinopriL 20 MG TAB PO SCH (07:59)
[2021-09-19] MEDS: FAMOTIDINE 20 MG TAB PO SCH (07:59)
[2021-09-19] MEDS: ZINC SULFATE 220 MG CAP PO SCH (07:59)
[2021-09-19] MEDS: VENLAFAXINE HCL 75 MG TAB PO SCH (07:59)
[2021-09-19] MEDS: ASCORBIC ACID 500 MG TAB PO SCH (07:59)
[2021-09-19] MEDS: busPIRone HCl 5 MG TAB PO SCH (07:59)
[2021-09-19] MEDS: CHOLECALCIFEROL 25 MCG (1000 IU) TABLET PO SCH (07:59)
[2021-09-19] MEDS: LORATADINE 10 MG TAB PO SCH (07:59)
[2021-09-19] MEDS: INSULIN DETEMIR (LEVEMIR) 100 UNIT/ML SYR SQ SCH (08:00)
[2021-09-19] MEDS: ALBUTEROL HFA INHALER INHALATION SCH ×2 (08:25→11:43)
[2021-09-19] MEDS: SYMBICORT 160-4.5 MCG INHALER INHALATION SCH (08:25)
[2021-09-19 09:51] VITALS: BP 147/76; PULSE 94; TEMP 97.6
[2021-09-19 12:03] LABS: Glucose,Whole Blood 228 mg/dL (75-99)
[2021-09-19] MEDS: SODIUM CHLORIDE 0.9% 1,000 ML IV SCH (13:51)
== END 2021-09-19 16:42 | disposition home or self-care (01) | DRG 177 ==
LOC: EC 12:36 → 4SSUR 14:20
PROVIDERS: ADMIT Family Medicine; ATTEND Family Medicine
DX: U07.1 COVID-19 (principal); J12.82 Pneumonia due to coronavirus disease 2019; J96.01 Acute respiratory failure with hypoxia; E03.9 Hypothyroidism, unspecified; E10.65 Type 1 diabetes mellitus with hyperglycemia; E66.9 Obesity, unspecified; E78.5 Hyperlipidemia, unspecified; F32.A Depression, unspecified; F41.9 Anxiety disorder, unspecified; I10 Essential (primary) hypertension; J45.909 Unspecified asthma, uncomplicated; M06.9 Rheumatoid arthritis, unspecified; M19.90 Unspecified osteoarthritis, unspecified site; M79.7 Fibromyalgia; Z68.34 Body mass index [BMI] 34.0-34.9, adult; Z79.4 Long term (current) use of insulin; Z79.82 Long term (current) use of aspirin; Z79.890 Hormone replacement therapy; Z79.899 Other long term (current) drug therapy; Z86.73 Personal history of transient ischemic attack (TIA), and cerebral infarction without residual deficits; Z87.891 Personal history of nicotine dependence; Z90.710 Acquired absence of both cervix and uterus; Z96.41 Presence of insulin pump (external) (internal); Z96.611 Presence of right artificial shoulder joint; Z96.653 Presence of artificial knee joint, bilateral; Z98.84 Bariatric surgery status; I87.2 Venous insufficiency (chronic) (peripheral); K21.9 Gastro-esophageal reflux disease without esophagitis; R79.89 Other specified abnormal findings of blood chemistry
CPT/HCPCS: 36415; 71045; 80048; 80053; 82728; 83605; 83615; 83735; 84145; 85025; 85379; 85610; 85730; 86140; 87635; 93005; 94640; 94760; 99285

== ENCOUNTER → 2024-12-26 | Outpatient (CLI) | payer MEDICARE ==
--- NOTE | 2024-12-26 17:33 | CT ---
EXAMINATION TYPE: CT thoracic spine wo con CT DLP: 767.2 mGycm, Automated exposure control for dose reduction was used. DATE OF EXAM: 12/26/2024 5:17 PM COMPARISON: CT lumbar spine 12/01/2024, CT cervical spine 12/01/2024. CLINICAL INDICATION:Female, 79 years old with history of M40.03 Q67.3 M54.6; PHH, Chronic neck and ba ck pain, pain TECHNIQUE: Axial images of the thoracic spine were obtained without contrast. Coronal and sagittal re formats were performed. FINDINGS: Diffuse bone demineralization. Mild S-shaped scoliotic curvature of the thoracolumbar spine . No spondylolisthesis. The thoracic vertebral bodies have preserved heights. Multilevel disc space n arrowing with endplate sclerosis and vacuum disc disease. Multilevel osteophytosis is pronounced invo lving the lower cervical spine. Please refer to recent CT cervical spine for findings. Broad-based disc bulge at T9-T10 with mild effacement of the anterior thecal sac. No significant cent ral canal stenosis. Mild broad-based disc bulge at T11-T12 with minimal effacement of the anterior th ecal sac. No significant central canal stenosis. No other evidence for significant central canal or n eural foraminal stenosis of the thoracic spine. Bilateral carotid bulb calcifications. Mild atherosclerotic calcification of the aorta and its branch es. Bilateral hilar and subcarinal calcified granulomas. Mitral annulus calcifications. Postsurgical changes at the GE junction and stomach. The gallbladder is surgical absent with additional metallic d ensities anterior to the IVC at the level of the renal arteries. Calcified granulomas within the sple en. Scattered calcified granulomas within the visualized lungs. Subpleural reticulations throughout b oth lungs. No visualized honeycombing. IMPRESSION: 1. No acute fracture of the thoracic spine. 2. Mild to moderate multilevel degenerative disc disease as described above. No significant central c anal or neural foraminal stenosis. 3. S-shaped scoliotic curvature of the thoracolumbar spine. 4. Sequelae of prior granulomatous disease. [facility], , 12/26/2024 5:31 PM
== END | disposition home or self-care (01) ==
LOC: RADCTMAIN 16:50
PROVIDERS: ATTEND Orthopaedic Surgery
DX: M51.34 Other intervertebral disc degeneration, thoracic region (principal); M40.03 Postural kyphosis, cervicothoracic region; Q67.3 Plagiocephaly
CPT/HCPCS: 72128

== ENCOUNTER → 2025-04-16 | Outpatient (CLI) | payer MEDICARE | END | disposition home or self-care (01) | LOC: LABPAT 11:51 | PROVIDERS: ATTEND Orthopaedic Surgery | DX: Z01.812 Encounter for preprocedural laboratory examination (principal); Z22.322 Carrier or suspected carrier of Methicillin resistant Staphylococcus aureus; M40.03 Postural kyphosis, cervicothoracic region; M47.814 Spondylosis without myelopathy or radiculopathy, thoracic region | CPT/HCPCS: 86850; 86900; 86901; 87070 ==